=== PATIENT | male | born 1940 | race Caucasian/White ===

== ENCOUNTER 2024-04-29 15:41 | Inpatient (IN) ==
--- NOTE | 2024-04-29 16:47 | Emergency Department Note ---
Impression & Plan DVT (deep venous thrombosis) ED Provider Note NAME: MJ MCNEILL AGE: 84 SEX: Male INFORMANT: Patient ED PROVIDER(S): Jose Daniel Stallworth MD CHIEF COMPLAINT: Blood clot PLAN: Disposition: Admitted Outpatient prescription management: none Referral: None MEDICAL DECISION MAKING: Patient presented due to significant pain and swelling in the right leg and an outpatient ultrasound that was concerning for DVT. Patient had blood work obtained. He underwent CT imaging of the chest. Thankfully no pulmonary embolism was noted. I did obtain his ultrasound report and he has a significant DVT extending through most of the lower extremity. Patient's initial monitoring appeared like A-fib however on further monitoring and ECG it appears that he has frequent PACs with a sinus rhythm. In light of the extensive DVT I believe the patient would be best served by initiation of IV heparin. I did discuss the case with [facility] V[facility]. Patient was evaluated in the ER and admitted for further management. I did ask if he wanted hypercoagulability labs done before the heparinization and he did ask for this to be done. These were ordered. 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 Vital Signs: reviewed and remarkable for no significant abnormalities Additional History obtained from: none Chronic Medical/Social Conditions affecting care: Kidney stones, asthma Prior/ Outside/ External records reviewed: Outpatient ultrasound imaging reviewed. DVT noted from the common femoral through the popliteal. Differential Diagnosis: DVT, musculoskeletal, infection, joint effusion, trauma, lymphedema, idiopathic, PE,, as well as other pathologies. Diagnostics, independently interpreted by me: ECG: Twelve-lead ECG reveals a sinus rhythm with PACs at 82 bpm. Incomplete right bundle branch block. Cardiac Monitoring: Cardiac monitoring ordered by me: The patient was placed on continuous cardiac monitoring and observed. It revealed a sinus rhythm with frequent PACs at 87 bpm. Medical decision rules: none Imaging studies: I refer you to the EMR for further details. HPI: 84 year old Male arrives for evaluation of DVT in the right leg. This was found today at [facility] by US. Pt notes months of swelling in the RLE. The patient also notes the following associated symptoms, skin redness. The patient has been prescribed an abx for suspected cellulitis. Current pain is rated as 0/10. Pt denies LOC, headache, fevers, chills, diaphoresis, visual changes, neck pain, chest pain, breathing difficulties, nausea, vomiting, abdominal pain, back pain, melena, hematochezia, urinary symptoms, numbness, weakness, lymphadenopathy, or other complaints. . PAST MEDICAL HISTORY: See Below, asthma PAST SURGICAL HISTORY: See Below, gallbladder SOCIAL HISTORY: See Below, retired HOME MEDICATIONS: See Below ALLERGIES: See Below VITALS: See Below PHYSICAL EXAMINATION: GENERAL: Awake, alert, well-appearing, in no distress HENT: Normocephalic, atraumatic. Oropharynx unremarkable. EYES: Normal conjunctiva. Sclera non-icteric. NECK: Inspection normal. Non-tender. Supple. No nuchal rigidity. FROM. No masses. RESPIRATORY: Clear to auscultation. No wheezes. No rales. Normal respiratory effort. CARDIAC: Normal rate. Normal rhythm. No murmurs. No rubs. Extremities warm and well perfused. Pulses equal. No JVD. GI: Soft, non-distended. No tenderness to palpation. No rebound or guarding. No masses. RECTAL: Deferred. MUSCULOSKELETAL: Atraumatic. Chest examination reveals no tenderness. The back is symmetrical on inspection without obvious abnormality. There is no CVA tenderness to palpation. No joint edema. LOWER EXTREMITIES: RLE larger than LLE, non-tender. +1 edema. Erythematous discoloration. NEURO: Normal sensorium. No sensory or motor deficits noted. SKIN: No rash or jaundice noted. PROCEDURES: none CRITICAL CARE: none OBSERVATION NOTE: none Past Med/Surg History Problem List (Updated 04/29/24 @ 16:47 by Jose Daniel Stallworth MD) DVT (deep venous thrombosis) (Acute) Pleuritic chest pain (Acute) Right leg swelling (Acute) Bronchitis (Acute) Pleuritic chest pain (Acute) Bronchitis (Acute) Acute cholecystitis (Acute) Dyslipidemia (Chronic) History of renal calculi (Chronic) Asthma (Chronic) Social History Smoking Status: Never smoker Preferred Language: Estonian Feels Safe at Home: Yes Allergies Allergies Allergy/AdvReac Type Severity Reaction Status Date / Time No Known Allergies Allergy Unverified 08/24/09 14:15 Home Meds Home Medications Medication Instructions Recorded Confirmed Albuterol (Ventolin) 2 puff inhalation PRN sob,cough 02/26/14 ##18 MELOXICAM (MOBIC) 15 mg PO DAILY PRN Pain ##30 02/26/14 Simvastatin 20 mg PO HS ##30 02/26/14 Previous Rx's Medication Instructions Recorded CIPROFLOXACIN HCL (CIPRO) 1 tab PO BID #10 tabs 03/08/15 Results & Data (ED) Vital Signs Vital Signs - 24 hr 04/29/24 16:00 04/29/24 16:25 04/29/24 17:44 Temperature 36.7 C Temperature Source Temporal Artery Scan Pulse Rate 110 H 72 Pulse Rate [Right Finger] Respiratory Rate 18 18 Respiratory Effort / Characteristics Non-Labored Spontaneous Non-Labored Spontaneous Respiratory Depth Normal Respiratory Pattern Regular Blood Pressure 126/61 Blood Pressure [Left Arm] 131/94 Blood Pressure Mean 82 Blood Pressure Mean [Left Arm] 106 Blood Pressure Position [Left Arm] Lying Pulse Oximetry 99 95 Oxygen Delivery Method Room Air Room Air Sepsis Recent Fever Within 48 Hours No Sepsis New/Unexplained Change in Mental Status No Sepsis Action Taken by Nursing No Action Required 04/29/24 18:00 04/29/24 20:00 04/29/24 20:36 Temperature Temperature Source Pulse Rate 72 Pulse Rate [Right Finger] 71 73 Respiratory Rate 18 18 Respiratory Effort / Characteristics Non-Labored Spontaneous Non-Labored Spontaneous Respiratory Depth Respiratory Pattern Blood Pressure Blood Pressure [Left Arm] 143/75 H 143/75 H Blood Pressure Mean Blood Pressure Mean [Left Arm] 97 97 Blood Pressure Position [Left Arm] Lying Lying Pulse Oximetry 99 100 Oxygen Delivery Method Room Air Room Air Sepsis Recent Fever Within 48 Hours Sepsis New/Unexplained Change in Mental Status Sepsis Action Taken by Nursing 04/29/24 22:00 Temperature Temperature Source Pulse Rate Pulse Rate [Right Finger] 87 Respiratory Rate 16 Respiratory Effort / Characteristics Non-Labored Spontaneous Respiratory Depth Respiratory Pattern Blood Pressure Blood Pressure [Left Arm] 131/66 Blood Pressure Mean Blood Pressure Mean [Left Arm] 87 Blood Pressure Position [Left Arm] Lying Pulse Oximetry 98 Oxygen Delivery Method Room Air Sepsis Recent Fever Within 48 Hours Sepsis New/Unexplained Change in Mental Status Sepsis Action Taken by Nursing Laboratory Data 04/29/24 16:15 04/29/24 16:15 Lab Results 04/29/24 Range/Units 16:15 WBC 7.42 (4.8-10.8) K/ul RBC 5.18 (4.70-6.10) M/uL Hgb 15.8 (14.0-18.0) g/dl Hct 47.5 (42.0-52.0) % MCV 91.7 (80.0-100.0) fL MCH 30.5 (25.0-34.0) pg MCHC 33.3 (32.0-36.0) g/dL RDW Std Deviation 43.0 (36.4-46.3) fL RDW Coeff of Vicki 12.7 (11.5-14.5) % Plt Count 199 (130-400) K/uL MPV 12.1 (9.4-12.4) fL Immature Gran % (Auto) 0.3 % Neut % (Auto) 43.1 % Lymph % (Auto) 44.9 % [place] % (Auto) 10.0 % Eos % (Auto) 1.2 % Baso % (Auto) 0.5 % Neut # (Auto) 3.20 (1.40-6.50) K/uL Lymph # (Auto) 3.33 (1.20-3.40) K/uL [place] # (Auto) 0.74 H (0.11-0.59) K/uL Eos # (Auto) 0.09 (0.00-0.50) K/uL Baso # (Auto) 0.04 (0.00-0.20) K/uL Immature Gran # (Auto) 0.02 (0.01-0.20) K/uL PT 10.5 (9.0-12.0) Seconds INR 1.0 (0.9-1.1) APTT 24 (21-31) Seconds PTT Ratio 0.9 Sodium 141 (136-145) mmol/L Potassium 3.9 (3.5-5.1) mmol/L Chloride 106 (98-107) mmol/L Carbon Dioxide 28 (21-32) mmol/L Anion Gap 7 (3-11) BUN 11 (6-23) mg/dl Creatinine 0.98 (0.6-1.4) mg/dl Est Cr Clr Drug Dosing 61.9 ml/min eGFR 76.99 BUN/Creatinine Ratio 11.2 (10-20) Glucose 95 (70-99(Fasting)) mg/dl Calcium 9.3 (8.6-10.3) mg/dl Total Bilirubin 0.9 (0.2-1.0) mg/dl AST 20 (13-39) U/L ALT 12 (7-52) U/L Alkaline Phosphatase 84 (34-104) U/L Total Protein 7.6 (6.0-8.3) gm/dl Albumin 4.3 (3.4-5.0) gm/dl Globulin 3.3 (2.5-4.0) gm/dl Albumin/Globulin Ratio 1.3 (0.9-2) Administered Medications Heparin Sodium/Dextrose (Heparin Sodium/Dextrose) 25,000 units in 500 mls @ 19 mls/hr IV .Q24H LY; Protocol Stop: 05/29/24 20:14 Last Admin: 04/29/24 20:30 Dose: 950 units/hr, 19 mls/hr Documented By: NOLAN Co-signed By: TRAN Discontinued Medications Heparin Sodium (Porcine) (Heparin Sod (Porcine) 1000 Unit/Ml) 4,000 units IV NOW ONE Stop: 04/29/24 20:16 Last Admin: 04/29/24 20:28 Dose: 4,000 units Documented By: NOLAN Co-signed By: TRAN Ioversol (Optiray 320 125ml) 117 ml IV ONCE ONE Stop: 04/29/24 18:26 Last Admin: 04/29/24 18:29 Dose: 117 ml Documented By: GES Imaging Data Radiologist's Impression: Chest CTA 04/29/24 16:39 Exam(s): CTA CHEST IV Amt: 117 cc opti 320 EXAM: CT Angiography Chest With Intravenous Contrast CLINICAL HISTORY: Reason for exam: tachy, outpt us with DVT, eval for PE. TECHNIQUE: Axial computed tomographic angiography images of the chest with intravenous contrast. CTDI is 38 mGy and DLP is 888.27 mGy-cm. Automated exposure control was utilized for the study. A dose lowering technique was utilized adhering to the principles of ALARA. MIP reconstructed images were created and reviewed. COMPARISON: No relevant prior studies available. FINDINGS: Pulmonary arteries: No pulmonary embolism. Aorta: No acute findings. Normal caliber. No dissection. Lungs: Unremarkable. Pleural space: Unremarkable. Heart: Heart size is normal. Moderate coronary artery calcifications. Mediastinum: Small hiatal hernia. Bones/joints: No acute fracture. Soft tissues: Unremarkable. Lymph nodes: Unremarkable. IMPRESSION: No pulmonary embolism. No acute abnormality within the chest. Electronically signed by: David Mchugh MD 04/29/24 19:32 PM Discharge Plan Visit Data Chief Complaint: Leg Injury/Pain Stated Complaint: BLOODCLOT IN R LEG ED Provider: Jose Daniel Stallworth Discharge Problem: DVT (deep venous thrombosis) Forms Stand Alone Forms: [facility] [employer] Prescriptions Prescriptions: No Action Albuterol (Ventolin) inhaler 2 puff Inhalation PRN (Reason: sob,cough) Qty: 18 MELOXICAM (MOBIC) 15 MG tablet 15 mg PO DAILY PRN (Reason: Pain) Qty: 30 Simvastatin 20 MG tablet 20 mg PO HS Qty: 30 CIPROFLOXACIN HCL (CIPRO) 500 MG tablet 1 tab PO BID Qty: 10 0RF Referrals Referrals: PCP,NO [Physician] -
[2024-04-29 17:12] LABS: Basophils # (auto) 0.04 K/uL (0.00-0.20); Basophils % (auto) 0.5 %; Eosinophils # (auto) 0.09 K/uL (0.00-0.50); Eosinophils % (auto) 1.2 %; Hematocrit (blood only) 47.5 % (42.0-52.0); Hemoglobin 15.8 g/dl (14.0-18.0); Immature Granulocytes # (auto) 0.02 K/uL (0.01-0.20); Immature Granulocytes % (auto) 0.3 %; Lymphocytes # (auto) 3.33 K/uL (1.20-3.40); Lymphocytes % (auto) 44.9 %; Mean Corpuscular Hemoglobin 30.5 pg (25.0-34.0); Mean Corpuscular Hgb Conc 33.3 g/dL (32.0-36.0); Mean Corpuscular Volume 91.7 fL (80.0-100.0); Mean Platelet Volume 12.1 fL (9.4-12.4); Monocytes # (auto) 0.74 K/uL (0.11-0.59); Neutrophils % (auto) 43.1 %; Platelet Count 199 K/uL (130-400); RDW Coefficient of Variation 12.7 % (11.5-14.5); Red Blood Count 5.18 M/uL (4.70-6.10); White Blood Count 7.42 K/ul (4.8-10.8)
[2024-04-29 17:13] LABS: Albumin Globulin Ratio 1.3 (0.9-2); Albumin Level 4.3 gm/dl (3.4-5.0); BUN Creatinine Ratio 11.2 (10-20); Bilirubin,Total 0.9 mg/dl (0.2-1.0); Calcium 9.3 mg/dl (8.6-10.3); Creatinine Clr Calc Pharmacy 61.9 ml/min; Globulin 3.3 gm/dl (2.5-4.0); Potassium 3.9 mmol/L (3.5-5.1); Total Protein 7.6 gm/dl (6.0-8.3)
[2024-04-29 17:33] LABS: Partial Thromboplastin Ratio 0.9; Partial Thromboplastin Time 24 Seconds (21-31); Prothrombin Time 10.5 Seconds (9.0-12.0)
[2024-04-29] MEDS: OPTIRAY 320 125ml IV ONE (18:29)
--- NOTE | 2024-04-29 19:32 | CT Scan Report ---
Exam(s): CTA CHEST IV Amt: 117 cc opti 320 EXAM: CT Angiography Chest With Intravenous Contrast CLINICAL HISTORY: Reason for exam: tachy, outpt us with DVT, eval for PE. TECHNIQUE: Axial computed tomographic angiography images of the chest with intravenous contrast. CTDI is 38 mGy and DLP is 888.27 mGy-cm. Automated exposure control was utilized for the study. A dose lowering technique was utilized adhering to the principles of ALARA. MIP reconstructed images were created and reviewed. COMPARISON: No relevant prior studies available. FINDINGS: Pulmonary arteries: No pulmonary embolism. Aorta: No acute findings. Normal caliber. No dissection. Lungs: Unremarkable. Pleural space: Unremarkable. Heart: Heart size is normal. Moderate coronary artery calcifications. Mediastinum: Small hiatal hernia. Bones/joints: No acute fracture. Soft tissues: Unremarkable. Lymph nodes: Unremarkable. IMPRESSION: No pulmonary embolism. No acute abnormality within the chest. Electronically signed by: David Mchugh MD 04/29/24 19:32 PM
[2024-04-29] MEDS ORDERED: Heparin IV Adult Wt-Based Low-Dose w/ INITIAL Bolus Protocol IV STA (19:49)
[2024-04-29] MEDS ORDERED: HEPARIN SOD (PORCINE) 1000 UNIT/ML IV ONE (20:04)
[2024-04-29] MEDS: HEPARIN SOD (PORCINE) 1000 UNIT/ML IV ONE (20:28)
[2024-04-29] MEDS: HEPARIN SODIUM/DEXTROSE 25,000 UNITS/500 ML BAG IV SCH (20:30)
--- NOTE | 2024-04-29 23:16 | History & Physical Report ---
Date of Service April 29, 2024 Assessment & Plan (1) DVT (deep venous thrombosis): Plan: 84-year-old male with past medical history significant for hyperlipidemia, hypothyroidism, mild intermittent asthma, right bundle branch block, B12 deficiency, GERD, chronic back pain, restless leg syndrome, history of depression comes because of right lower extremity DVT and also CHF. Patient had routine cardiology visit yesterday. He was found to have swelling in the lower extremity right greater than left. Right lower extremity also somewhat warm and erythematous. He is having this edema for several weeks now. Seems he is noncompliant with salt. Cardiology ordered 80 mg Lasix 3 days and increase his maintenance dose from 20 to 40 mg and also ordered Dopplers and Keflex for possible cellulitis. Dopplers came back with right lower extremity DVT from the common femoral to the popliteal vein. Cardiology advised patient to come to the hospital and also advised for IV diuresis. Currently resting comfortably and hemodynamically stable. Denies any chest pain. Denies shortness of breath. Denies cough. No fevers. No headache. No runny nose or sore throat. No nausea. Normal bowel and bladder movements. Acute right lower extremity DVT CT chest no PE Placed on IV heparin Acute diastolic CHF Seems noncompliant with salt Placed on IV Lasix 40 mg daily Daily weights and I's and O's Follow echo Telemetry Cardiology consult for further recommendation Cellulitis of right lower extremity Was placed on Keflex yesterday by cardiology Will place on IV Rocephin while in the hospital Monitor response Hyperlipidemia On statin Hypothyroidism On Synthyroid Follow TSH Depression On sertraline DVT prophylaxis IV heparin Disposition Telemetry Full code. History of Present Illness Chief Complaint: Right lower extremity DVT and CHF Primary Care Provider: Adán Fink MD 84-year-old male with past medical history significant for hyperlipidemia, hypothyroidism, mild intermittent asthma, right bundle branch block, B12 deficiency, GERD, chronic back pain, restless leg syndrome, history of depression comes because of right lower extremity DVT and also CHF. Patient had routine cardiology visit yesterday. He was found to have swelling in the lower extremity right greater than left. Right lower extremity also somewhat warm and erythematous. He is having this edema for several weeks now. Seems he is noncompliant with salt. Cardiology ordered 80 mg Lasix 3 days and increase his maintenance dose from 20 to 40 mg and also ordered Dopplers and Keflex for possible cellulitis. Dopplers came back with right lower extremity DVT from the common femoral to the popliteal vein. Cardiology advised patient to come to the hospital and also advised for IV diuresis. Currently resting comfortably and hemodynamically stable. Denies any chest pain. Denies shortness of breath. Denies cough. No fevers. No headache. No runny nose or sore throat. No nausea. Normal bowel and bladder movements. Past medical history. As mentioned above Past surgical history. Cystoscopy. Cystoscopy with insertion of stent. Cystourethroscopy with lithotripsy. Laparoscopic assisted tongue. Left cataracts. Social history. . No smoking. No alcohol. No drug use Family history. Sister has lung cancer. Brother has MD. Sister has MD. Mother had MD. Allergies Allergy/AdvReac Type Severity Reaction Status Date / Time No Known Allergies Allergy Unverified 08/24/09 14:15 Home Medications Medication Instructions Recorded Confirmed Type cephalexin 500 mg capsule 500 mg PO TID 04/29/24 04/29/24 History furosemide 40 mg tablet 40 mg PO DAILY 04/29/24 04/29/24 History levothyroxine 50 mcg tablet 50 mcg PO DAILY 04/29/24 04/29/24 History potassium chloride 20 mEq 20 meq PO DAILY 04/29/24 04/29/24 History tablet,extended release(part/cryst) sertraline 50 mg tablet 50 mg PO DAILY 04/29/24 04/29/24 History simvastatin 20 mg tablet 20 mg PO DAILY 04/29/24 04/29/24 History Past Med/Surg History Problem List (Updated 04/29/24 @ 16:47 by Jose Daniel Stallworth MD) DVT (deep venous thrombosis) (Acute) Pleuritic chest pain (Acute) Right leg swelling (Acute) Bronchitis (Acute) Pleuritic chest pain (Acute) Bronchitis (Acute) Acute cholecystitis (Acute) Dyslipidemia (Chronic) History of renal calculi (Chronic) Asthma (Chronic) Social History Smoking Status: Never smoker Hx Alcohol Use: No Hx Substance Use: No Preferred Language: Moroccan Communication Ability: Effective Delivery Coordinator Required: No Beliefs That Will Affect Care: None Current Living Situation: Alone Feels Safe at Home: Yes Safety Concerns: Feels Safe At This Time Assistive Devices: Brace/Splint/Immobilizer and Glasses Review of Systems Review of Systems: All systems reviewed & are unremarkable except as noted in HPI & below Physical Exam Physical Exam: General- Not in distress Head- atraumatic Eyes- PERRL. ENT- oropharynx clear Neck- supple, no JVD. Lungs- clear to auscultation no wheezing or crackles Heart- regular rhythm; no murmur, no gallop. Abdomen- normal bowel sounds, soft, nontender, no distension Extremities- b/l lower extremity edema right leg erythematous Neuro- alert, oriented ; PERRL, no facial palsy; no dysarthria; moves etxremities Results & Data Results & Data Vital Signs (Past 12 Hours) Vital Signs Temp Pulse Pulse Resp BP BP Pulse Ox 04/29/24 22:00 87 16 131/66 98 04/29/24 20:36 72 04/29/24 20:00 73 18 143/75 H 100 04/29/24 18:00 71 18 143/75 H 99 04/29/24 17:44 72 04/29/24 16:25 18 131/94 95 04/29/24 16:00 36.7 C 110 H 18 126/61 99 O2 Del Method 04/29/24 22:00 Room Air 04/29/24 20:36 04/29/24 20:00 Room Air 04/29/24 18:00 Room Air 04/29/24 17:44 04/29/24 16:25 Room Air 04/29/24 16:00 Room Air Diagnostic Findings Laboratory Results WBC 7.42 K/ul (4.8-10.8) 04/29/24 16:15 RBC 5.18 M/uL (4.70-6.10) 04/29/24 16:15 Hgb 15.8 g/dl (14.0-18.0) 04/29/24 16:15 Hct 47.5 % (42.0-52.0) 04/29/24 16:15 MCV 91.7 fL (80.0-100.0) 04/29/24 16:15 MCH 30.5 pg (25.0-34.0) 04/29/24 16:15 MCHC 33.3 g/dL (32.0-36.0) 04/29/24 16:15 RDW Std Deviation 43.0 fL (36.4-46.3) 04/29/24 16:15 RDW Coeff of Vicki 12.7 % (11.5-14.5) 04/29/24 16:15 Plt Count 199 K/uL (130-400) 04/29/24 16:15 MPV 12.1 fL (9.4-12.4) 04/29/24 16:15 Immature Gran % (Auto) 0.3 % 04/29/24 16:15 Neut % (Auto) 43.1 % 04/29/24 16:15 Lymph % (Auto) 44.9 % 04/29/24 16:15 [place] % (Auto) 10.0 % 04/29/24 16:15 Eos % (Auto) 1.2 % 04/29/24 16:15 Baso % (Auto) 0.5 % 04/29/24 16:15 Neut # (Auto) 3.20 K/uL (1.40-6.50) 04/29/24 16:15 Lymph # (Auto) 3.33 K/uL (1.20-3.40) 04/29/24 16:15 [place] # (Auto) 0.74 K/uL (0.11-0.59) H 04/29/24 16:15 Eos # (Auto) 0.09 K/uL (0.00-0.50) 04/29/24 16:15 Baso # (Auto) 0.04 K/uL (0.00-0.20) 04/29/24 16:15 Immature Gran # (Auto) 0.02 K/uL (0.01-0.20) 04/29/24 16:15 PT 10.5 Seconds (9.0-12.0) 04/29/24 16:15 INR 1.0 (0.9-1.1) 04/29/24 16:15 APTT 24 Seconds (21-31) 04/29/24 16:15 PTT Ratio 0.9 04/29/24 16:15 Sodium 141 mmol/L (136-145) 04/29/24 16:15 Potassium 3.9 mmol/L (3.5-5.1) 04/29/24 16:15 Chloride 106 mmol/L (98-107) 04/29/24 16:15 Carbon Dioxide 28 mmol/L (21-32) 04/29/24 16:15 Anion Gap 7 (3-11) 04/29/24 16:15 BUN 11 mg/dl (6-23) 04/29/24 16:15 Creatinine 0.98 mg/dl (0.6-1.4) 04/29/24 16:15 Est Cr Clr Drug Dosing 61.9 ml/min 04/29/24 16:15 eGFR 76.99 04/29/24 16:15 BUN/Creatinine Ratio 11.2 (10-20) 04/29/24 16:15 Glucose 95 mg/dl (70-99(Fasting)) 04/29/24 16:15 Calcium 9.3 mg/dl (8.6-10.3) 04/29/24 16:15 Total Bilirubin 0.9 mg/dl (0.2-1.0) 04/29/24 16:15 AST 20 U/L (13-39) 04/29/24 16:15 ALT 12 U/L (7-52) 04/29/24 16:15 Alkaline Phosphatase 84 U/L (34-104) 04/29/24 16:15 Total Protein 7.6 gm/dl (6.0-8.3) 04/29/24 16:15 Albumin 4.3 gm/dl (3.4-5.0) 04/29/24 16:15 Globulin 3.3 gm/dl (2.5-4.0) 04/29/24 16:15 Albumin/Globulin Ratio 1.3 (0.9-2) 04/29/24 16:15 Impressions Chest CTA 04/29/24 16:39 Exam(s): CTA CHEST IV Amt: 117 cc opti 320 EXAM: CT Angiography Chest With Intravenous Contrast CLINICAL HISTORY: Reason for exam: tachy, outpt us with DVT, eval for PE. TECHNIQUE: Axial computed tomographic angiography images of the chest with intravenous contrast. CTDI is 38 mGy and DLP is 888.27 mGy-cm. Automated exposure control was utilized for the study. A dose lowering technique was utilized adhering to the principles of ALARA. MIP reconstructed images were created and reviewed. COMPARISON: No relevant prior studies available. FINDINGS: Pulmonary arteries: No pulmonary embolism. Aorta: No acute findings. Normal caliber. No dissection. Lungs: Unremarkable. Pleural space: Unremarkable. Heart: Heart size is normal. Moderate coronary artery calcifications. Mediastinum: Small hiatal hernia. Bones/joints: No acute fracture. Soft tissues: Unremarkable. Lymph nodes: Unremarkable. IMPRESSION: No pulmonary embolism. No acute abnormality within the chest. Electronically signed by: David Mchugh MD 04/29/24 19:32 PM ECG Additional Comments: ECG. Atrial fibrillation? with rate of 82. Incomplete right bundle branch block. Possible right ventricular trophy. Code Status & VTE Plan VTE Prophylaxis Plan VTE Prophylaxis will be ordered: Yes
[2024-04-30] MEDS ORDERED: ACETAMINOPHEN 325 MG TAB PO PRN (00:59)
[2024-04-30] MEDS ORDERED: POLYETHYLENE (MIRALAX) 17 GM PACK PO PRN (00:59)
[2024-04-30] MEDS ORDERED: NITROGLYCERIN SL 0.4 MG/TAB TAB SL PRN (00:59)
[2024-04-30 03:04] LABS: ANTI-Xa, UFH(UnfractionatedHep 0.45 IU/ml (0.3-0.7)
[2024-04-30] MEDS: LEVOTHYROXINE SODIUM 50 MCG TABLET PO SCH (05:58)
--- OUTSIDE RECORDS SUMMARY | 2024-04-30 06:09 | External Medical Summary ---
Author Name Unknown Address Unknown Organization [id number] [address] [place] [id number] Laboratory Report Ordering Provider Test Date Status ALEN JONES 04/28/2024 09:50:45 Final Observation Date Value Abnormality Reference (Units ) Status BUN 04/28/2024 09:50:45 11 6-20 (mg/dL) Final Creatinine 04/28/2024 09:50:45 1.0 0.6-1.2 (mg/dL) Final Glomerular filtration rate/1.73 sq M.predicted [Volume Rate/Area] in Serum, Plasma or Blood by Creatinine-based formula (CKD-EPI) 04/28/2024 09:50:45 79 >=60 (mL/min) Final eGFR is calculated based on the CKD-EPI 2020 equation. Sodium 04/28/2024 09:50:45 143 135-146 (m mol/L) Final Potassium 04/28/2024 09:50:45 4.3 3.5-5.1 (m mol/L) Final Cl 04/28/2024 09:50:45 104 98-107 (mm ol/L) Final CO2 04/28/2024 09:50:45 26 22-32 (mmo l/L) Final Anion gap 04/28/2024 09:50:45 13 7-15 (mmol /L) Final Glucose 04/28/2024 09:50:45 102 70-120 (mg /dL) Final Calcium 04/28/2024 09:50:45 9.3 8.4-10.2 ( mg/dL) Final Performing Location [facility] [address] [place] [id number]
--- OUTSIDE RECORDS SUMMARY | 2024-04-30 06:09 | External Medical Summary | Summary of Care ---
Author Name Unknown Organization [facility] Address [address] [place] [address] Phone [phone] Care Team Providers Care Blocker And Polisher Gold Wheel Name Role Phone Adán Fink MD Primary Care Provider + Reason for Referral * Precert (Diagnostic Medical) (Within 10 days (routine)) - Authorized Specialty Diagnoses / Procedures Referred By Dianne t Referred To Contact Cardiac Studies Diagnoses Leg swelling Acute diastolic heart failure (HCC) Procedures ECHO, COMPLETE (2D), TRANS-THORACIC Ludmila Jha CRNP [address] [facility] [place] [address] Referral ID Status Reason Start Date Expiration Date V isits Requested Visits Authorized [id number] Authorized Precert 10/14/2024 999 999 Reason for Visit * Reason Comments Follow Up Encounter Details Date Type Department Care Team (Late st Contact Info) Description 04/28/2024 9:00 AM EDT Office Visit Cardiology, [facility] [address] [place] [address] Ludmila Jha CRNP [address] [place] [address] Acute diastolic heart failure (HCC)*; Cellulitis of right lower extremity; Leg swelling; Pain of right lower leg Allergies No known active allergiesdocumented as of this encounter (statuses as of 04/29/2024) Medications Medication Sig Dispensed Refills Start Date End Date Status Multiple Vitamins-Minerals (ONE DAILY MENS 50+ MULTIVIT) TABS Active Levothyroxine Sodium 50 MCG Oral Tablet (Levoxyl)Indication s:Acquired hypothyroidism Take 1 Tablet by mouth daily first thing in the morning. 100 Tablet 3 4 Active Sertraline HCl 50 MG Oral Tablet (Zoloft) Take 1 Tablet by mouth in the morning. 100 Tablet 3 4 Active Simvastatin 20 MG Oral Tablet (Zocor)Indications: Dyslipidemia, goal LDL below 100 Take 1 Tablet by mouth every evening. 100 Tablet 3 4 Active Potassium Chloride Amy ER 20 MEQ Oral Tablet Extended ReleaseIndications: Bilateral leg edema Take 1 Tablet by mouth in the morning. 30 Tablet 4 Active Cephalexin 500 MG Oral CapsuleIndications: Leg swelling,Cellulitis of right lower extremity,Pain of right lower leg Take 1 Capsule by mouth in the morning and 1 Capsule at noon and 1 Capsule before bedtime. 21 Capsule 4 Active Furosemide 40 MG Oral Tablet (Lasix)Indications: Leg swelling,Acute diastolic heart failure (HCC) Take 1 Tablet by mouth in the morning. 90 Tablet 3 4 Active Furosemide 20 MG Oral Tablet (Lasix)Indications: Bilateral leg edema Take 1 Tablet by mouth in the morning. 30 Tablet 4 04/28/20 24 Discontinued(Med ication/Dose Changed) Cephalexin 500 MG Oral CapsuleIndications: Leg swelling,Cellulitis of right lower extremity,Pain of right lower leg Take 1 Capsule by mouth in the morning and 1 Capsule at noon and 1 Capsule before bedtime. 21 Capsule 4 04/28/20 24 Discontinued Furosemide 40 MG Oral Tablet (Lasix)Indications: Leg swelling,Acute diastolic heart failure (HCC) Take 1 Tablet by mouth in the morning. 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 10/03 start IM Routine medical exam 09/08/2009 Overview: Needs yearly CBC monitor lymphocytes. Declines shingrix Dyslipidemia, goal LDL below 100 Mild intermittent asthma without complication Overview: Cold induced documented as of this encounter (statuses as of 04/29/2024) Resolved Problems Problem Noted Date Diagnosed Date Resolved Date History of kidney stones 05/15/2019 Overview: Historical. Pain of both sacroiliac joints 02/28/2017 04/12/2017 Malaise and fatigue 04/27/2015 07/21/19 16 Insomnia 04/27/2015 07/21/2015 Gallbladder disease 04/27/2015 07/21/19 16 Hypothyroidism 04/27/2015 09/15/2020 Lumbar paraspinal muscle spasm 03/14/2014 04/27/2015 Low back pain 03/12/2014 04/27/2015 Cough 03/05/2014 03/05/2014 Cough 03/05/2014 04/27/2015 Chest pain 03/05/2014 07/21/2015 Asthma, mild persistent 08/05/201307/17 Arthralgia 08/05/2013 03/05/2014 Pain of left thumb 08/05/2013 4 Impacted cerumen 11/29/2011 08/05/2013 Acute bronchitis, complicated 10/30/2011 08/05/2013 Bacterial pneumonia 10/13/2011 03/05/20 14 Acute sinusitis 03/03/2011 08/05/2013 Dyspnea 09/08/2009 03/05/2014 Plantar fasciitis 09/08/2009 02/28/2017 Screening for cardiovascular condition 09/08/2009 08/05/2013 Screening for prostate cancer 09/08/2009 03/05/2014 Calculus of kidney 07/16/2008 0 Asthma, cold induced 014 documented as of this encounter (statuses as of 04/29/2024) Immunizations Name Administration Dates Next Due COVID-19 mRNA, LNP-s, No Pre serve, 2-Dose Series (Diasome) 04/29/2021,09/14/2020 Covid-19, Mrna, Lnp-s, Pf, B ivalent, 30 Mcg, IM, 12 yrs and above (Pfizer) 06/12/2022 Pneumococcal Conjugate Vacc, 13 Valent (Prevnar) 05/23/2017 Pneumococcal Polysaccharide PPV23 (Pneumovax) 08/12/2018 RSV Vac., Bivalent, Perfusio n F, Pf,0.5 Ml (Abrysvo) 10/15/2023 Seasonal Influenza Vac., MDV , IM, 0.5 mL (Fluzone) 03/17/2015,04/06/2014,04/04/2013,04/09,04/27/2011,03/16/2009 Seasonal Influenza, High Dos e, Trivalent, PF, IM (Fluzone HD) 04/16/2024 Seasonal Influenza, PF, 6 M & above, IM , (FluLaval or Fluzone) 04/05/2020,04/01/2018,04/12/2017 Seasonal Influenza, Quadriva lent Hd (Fluzone Hd) 03/27/2023,06/12/2022,03/31/2021 Seasonal Influenza, Quadriva lent, No Preserve, IM 04/05/2016 Seasonal Influenza, Trivalen t, Adjuvanted, 65+ YRS, PF, (Fluad) 04/16/2019 TDAP (age 10 and older)(Boostrix) 06/13/2017 documented as of this encounter Social History Tobacco Use Types Packs/Day Years Used Date Smoking Tobacco: Never Smokeless Tobacco: Never Tobacco Cessation:Counseling Given: Not Answered Alcohol Use Standard Drinks/Week Comments No 0 (1 standard drink = 0.6 oz pur e alcohol) none PHQ-2 Answer Date Recorded PHQ Adult Total Score 0 10/15/2023 Hunger Vital Sign Answer Date Recorded Within the past 12 months, y ou worried that your food would run out before you got the money to buy more. Never true 10/15/19 24 Within the past 12 months, t he food you bought just didn't last and you didn't have money to get more. Never true 10/15/2023 Childcare Answer Date Recorded Do you feel overwhelmed with taking care of a child, family member or friend? No 10/15/2023 Does your family need help f inding childcare? (Household - for ages 0-17 years) Not on file 10/15/2023 Clothing Answer Date Recorded Have you been unable to get clothing when it was really needed? No 10/15/2023 Is your family able to get c lothes or diapers when needed? (Household - for ages 0-17 years) Not on file 10/15/2023 Personal Safety Answer Date Recorded Do you feel unsafe or have concerns for your saf ety? No 10/15/2023 Do you have concerns for you r family's safety? (Household - for ages 0-17 years) Not on file 10/15/2023 Utilities Answer Date Recorded Do you have trouble paying y our heating, water, or electric bill? No 10/15/2023 Is your family able to pay t he heat, water, or electric bill? (Household - for ages 0-17 years) Not on file 10/15/2023 Does your family have access to good internet? (Household - for ages 0-17 years) Not on file 10/15/2023 Employment Status Answer Date Recorded Are you unemployed or without regular income? No 10/15/2023 Does the household have a re gular source of income? (Household - for ages 0-17 years) Not on file 10/15/2023 Social Connections Answer Date Recorded How often do you feel lonely or isolated from th ose around you? Never 10/15/2023 Financial Resource Strain Answer Date R ecorded Do you have any trouble payi ng for your medications, or do you think you might in the future? No 10/15/2023 Does your family have troubl e paying for medicine? (Household - for ages 0-17 years) Not on file 10/15/2023 Transportation Needs Answer Date Record ed READ ONLY Do you have troubl e getting a ride to medical visits or work? Never True 10/15/2023 Does your family have a hard time getting a ride to doctors visits? (Household - for ages 0-17 years) Not on file 10/15/2023 Has lack of transportation k ept you from medical appointments, meetings, work, or from getting things needed for daily living? Check all that apply. (Adult - for ages 18 years and over) Not on file 10/15/2023 Do you (or your family) have trouble finding or paying for a ride (transportation)? (Household - for ages 0-17 years) Not on file 10/15/2023 Housing Stability Answer Date Recorded Do you currently live in a s helter or have no steady place to sleep at night? No 10/15/2023 READ ONLY Do you think you a re at risk of becoming homeless? No 10/15/2023 Does your family worry about paying for your home or becoming homeless? (Household - for ages 0-17 years) Not on file 0 10/15/2023 Are you homeless or worried that you might be in the future? (Adult - for ages 18 years and over) Not on file Are you (or your family) jesus eless or worried that you might be in the future? (Household - for ages 0-17 years) Not on file Food Insecurity Answer Date Recorded Do you need food for this week? No 10/15/2023 Are you able to get enough f ood for your family? (Household - for ages 0-17 years) Not on file 10/15/2023 Does your family need food t his week? (Household - for ages 0-17 years) Not on file 10/15/2023 Do you always have enough fo od for your family? (Household - for ages 0-17 years) Not on file 10/15/2023 Sex and Gender Information Value Date Recorded Sex Assigned at Male 08/11/2022 12:50 PM EST Gender Identity Male 08/11/2022 12:50 PM EST Sexual Orientation Straight 08/11/2022 12 :50 PM EST Job Start Date Occupation Industry Not on file Not on file Not on file documented as of this encounter Last Filed Vital Signs Vital Sign Reading Time Taken Comments Blood Pressure 112/74 04/28/2024 9:00 AM EDT Pulse 80 04/28/2024 9:00 AM EDT Temperature - - Respiratory Rate 12 04/28/2024 9:00 AM EDT Oxygen Saturation - - Inhaled Oxygen Concentration - - Weight 91.4 kg (201 lb 8 oz) 04/28/2024 9:00 AM EDT Height - - Body Mass Index 28.21 04/16/2024 10:59 AM EDT documented in this encounter Patient Instructions * Patient Instructions* Ludmila Jha CRNP - 04/28/2024 9:32 AM EDT Increase your Furosemide (Lasix) to 80mg daily x3 days, and then reduce to 40mg daily starting Labs today and then again in one week (next Sunday or ) Start Antibiotic today Schedule for ultrasound of your right lower leg Schedule for Echocardiogram in October 2024. 6. Follow up with me in one month 7. Start using your scale, check your weight each morning after your first get up to urinate. Keep a journal. Call us with a weight gain of 5lbs or more in one week. documented in this encounter Progress Notes * Ludmila Jha CRNP - 04/28/2024 9:00 AM EDT 04/27/2024 Cardiology Follow Up Primary Director Underwriter Sales: Dr. Emerson Cardiac Problems: Venous insufficiency Right BBB (chronic, cited back to 2009) Pericardial effusion HPI: Kleber Darden is a 84 year old male presents for routine cardiology follow up. Last seen in the office by the undersigned 10/18/23 doing well from a cardiac perspective Presents today with family complaining of leg swelling, right worse than left. Right leg also is red and warm to the touch. The redness and increased warmth has been for a few weeks. Patient's son has also accompanied patient to today's appointment. He states the patient's leg swelling has been ongoing and progressively worse over the past few months other did note some improvement following use of furosemide after [place]. Patient was advised at that time to start obtaining daily "dry" weights, but has not. He was also advised to start monitoring her salt intake and reducing. He has not. When asked to describe what he eats in a typical day. He reports that he does not each breakfast, but does like to have potato chips. He reports Grilled cheese and Amharic fries with salt for lunch, and Spaghetti-os for dinner. BP controlled. Reports compliance on medications. Discussed consideration for presenting to the ER given the concern of his right leg. Patient is refusing. REVIEW OF SYSTEMS: See HPI for pertinent positives. All others negative other than those noted in the HPI. CONSTITUTIONAL: No change in weight, No weakness, No fatigue and No fevers, No sweats or chills. PULMONARY: No cough, sputum, or hemoptysis, No wheezing, No shortness or breath and No recent change in breathing. CARDIOVASCULAR: No chest pain, No dyspnea on exertion, No edema, No palpitations and No syncope. GASTROINTESTINAL: No abdominal pain, No change in bowel habits, No significant heartburn, No nausea, No vomiting, No diarrhea, No constipation, No blood in stools or black tarry stools. No dysphagia. HEMATOLOGIC: No abnormal bleeding and No bruising. NEUROLOGICAL: Normal balance, No headaches and No weakness. Review of patient's allergies indicates: No Known Allergies Current Outpatient Medications Medication Sig Dispense Refill Multiple Vitamins-Minerals (ONE DAILY MENS 50+ MULTIVIT) TABS Levothyroxine Sodium 50 MCG Oral Tablet (Levoxyl) Take 1 Tablet by mouth daily first thing in the morning. 100 Tablet 3 Sertraline HCl 50 MG Oral Tablet (Zoloft) Take 1 Tablet by mouth in the morning. 100 Tablet 3 Simvastatin 20 MG Oral Tablet (Zocor) Take 1 Tablet by mouth every evening. 100 Tablet 3 Potassium Chloride Amy ER 20 MEQ Oral Tablet Extended Release Take 1 Tablet by mouth in the morning. 30 Tablet 0 Cephalexin 500 MG Oral Capsule Take 1 Capsule by mouth in the morning and 1 Capsule at noon and 1 Capsule before bedtime. 21 Capsule 0 Furosemide 40 MG Oral Tablet (Lasix) Take 1 Tablet by mouth in the morning. 90 Tablet 3 Current Facility-Administered Medications Medication Dose Route Frequency Provider Last Rate Last Admin Vitamin B-12 (Cyanocobalamin) inj 1,000 mcg 1,000 mcg Intramuscular Q4 Weeks Past Medical History: Diagnosis Date Asthma, cold induced B12 deficiency 09/01/2016 Calculus of kidney 2008 Chronic left-sided low back pain with left-sided sciatica 02/28/2017 Dyslipidemia, goal LDL below 100 Hypothyroidism 04/27/2015 Hypothyroidism due to acquired atrophy of thyroid 09/11/2019 Pain of both sacroiliac joints 02/28/2017 RLS (restless legs syndrome) 03/11/2020 Family History Problem Relation Name Age of Onset Heart Disorder Mother [place] age 68 all siblings , no other CA. 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 Social Determinants of Health Financial Resource Strain: Low Risk (10/15/2023) Financial Resource Strain Do you have any trouble paying for your medications, or do you think you might in the future? (Adult - for ages 18 years and over): No Food Insecurity: No Food Insecurity (10/15/2023) Food Insecurity Do you need food for this week? (Adult - for ages 18 years and over): No Transportation Needs: No Transportation Needs (10/15/2023) Transportation Needs Do you have trouble getting a ride to medical visits or work? (Adult - for ages 18 years and over):Never True Social Connections: Socially Integrated (10/15/2023) Social Connections How often do you feel lonely or isolated from those around you? (Adult - for ages 18 years and over): Never Housing Stability: Low Risk (10/15/2023) Housing Stability Do you currently live in a intermediate or have no steady place to sleep at night? (Adult - for ages 18 years and over): No Do you think you are at risk of becoming homeless? (Adult - for ages 18 years and over): No OBJECTIVE/PHYSICAL EXAMINATION: BP 112/74 (BP Site: Left Arm, BP Position: Sitting, BP Cuff Size: Regular) | Pulse 80 | Resp 12 | Wt 91.4 kg (201 lb 8 oz) | BMI 28.21 kg/m | BSA 2.14 m General: No acute distress. A+Ox3. HEENT: Normocephalic. Atraumatic. PERRL. EOMI. Conjunctiva and sclera clear. NECK: No carotid bruits. No JVD. Carotid upstrokes are brisk. Heart: RRR. S1 and S2 noted. No murmur. No rubs or gallops. PMI non displaced. Lungs: Clear to auscultation. No wheezes.No rhonchi. No rales. Abdomen: Normal bowel sounds. Soft. Nontender. No masses or organomegaly. No abdominal bruits. Extremities: No edema. No clubbing or cyanosis. Pulses: radial=2/4, posterior tibial=2/4, dorsalis pedis = 2/4. NEURO: No focal deficits. PSYCH: Appropriate affect and insight. DATA Labs & Imaging Reviewed Below: Echocardiogram 10/11/23 Interpretation Summary The examination is adequate to evaluate the referral indication. The LV wallthickness is normal. The left ventricular wall motion is normal. The qualitative LV ejection fraction is 60-64% (normal). The left ventricular diastolic function is mildly abnormal (grade I). Mild tricuspid regurgitation is present. There is no evidence of pulmonary hypertension. There is a small circumferential pericardial effusion with thickening and organization. Effusion is of non hemodynamicsignificance, no tamponade. Compared to the images obtained at the time of the previous study dated108/06/2022, mild tricuspid regurgitation is now noted. The pericardial effusion is unchanged. Echocardiogram June 06, 2023 The left ventricular cavity size is normal. The LV wall thickness is mildly increased (concentric). The left ventricular wall motion is normal. The qualitative LV ejection fraction is 60-64% (normal). The left ventricular diastolic function is mildly abnormal (grade I). There is no significant valvular disease There is no evidence of pulmonary hypertension. The inferior vena cava is normal sized. There is a small circumferential pericardial effusion with thickening and organization. Effusion isof non hemodynamic significance, no tamponade EKG June 12, 2023: Normal sinus rhythm at 65 beats per minute with right bundle-branch block ASSESSMENT/PLAN: 84 year old year old male 1. Acute diastolic heart failure (HCC) -patient with known diastolic dysfunction, noncompliant with daily weights or diet modification as previously discussed. Eats a diet high in sodium but reports medication compliance -patient with modest volume overload on exam as well as increasing concerns over his right lower extremity due to erythema, discomfort and increased warmth to touch -sent for labs today -patient currently taking 20 mg of Lasix daily, we will initiate 8 DTP starting today of 80 mg of Lasix daily x3 days. On day 4 patient should reduced to 40 mg daily and have repeat labs in 1 week toassess renal function and electrolyte -arrange for echocardiogram to assess overall structure and function - BASIC METABOLIC PANEL; Future - ECHO, COMPLETE (2D), TRANS-THORACIC; Future - BASIC METABOLIC PANEL; Future - Furosemide 40 MG Oral Tablet (Lasix); Take 1 Tablet by mouth in the morning. Dispense: 90 Tablet;Refill: 3 2. Cellulitis of right lower extremity 3. Leg swelling 4. Pain of right lower leg -patient's leg swelling is multifactorial -in part due to dietary noncompliance, patient strongly encouraged to start performing daily weights and keep a log as well as encouraged to start reading nutrition labels and maintain a less than 2000 mg sodium intake daily and fluid intake between 60 and 80 oz daily -sent for labs today to monitor renal function, electrolytes as well as check D-dimer -CBC to assess for infection given concern for likely cellulitis -vascular duplex ordered to exclude DVT -CHF teaching packet provided to patient and son -patient has had performed DTP of furosemide as noted above and then we will increase overall maintenance dose to 40 mg daily. Labs today and then repeat labs in 1 week - VASC DUPLEX VENOUS LE UNILAT; Future - CBC; Future - D-DIMER; Future - Cephalexin 500 MG Oral Capsule; Take 1 Capsule by mouth in the morning and 1 Capsule at noon and 1 Capsule before bedtime. Dispense: 21 Capsule; Refill: 0 - EKG COMPLETE (TRACING AND INTERP) - BASIC METABOLIC PANEL; Future - D-DIMER; Future - ECHO, COMPLETE (2D), TRANS-THORACIC; Future - BASIC METABOLIC PANEL; Future - Cephalexin 500 MG Oral Capsule; Take 1 Capsule by mouth in the morning and 1 Capsule at noon and 1 Capsule before bedtime. Dispense: 21 Capsule; Refill: 0 - Furosemide 40 MG Oral Tablet (Lasix); Take 1 Tablet by mouth in the morning. Dispense: 90 Tablet;Refill: 3 -thorough instructions provided on patient print out DISPOSITION: Follow up 4 weeks or if symptoms worsen/fail to improve. All questions were answered to the patients satisfaction. Patient advised to report to ED with any and all emergencies. The patient agrees to the above plan and will call with additional questions or concerns. [facility], [address] [address] I spent a total of 40 minutes on the date of service in preparation, delivery, and documentation ofthe care provided to Kleber Darden excluding any time spent in the performance of separately billed services. This chart was completed in part utilizing [employer] Speech Voice Recognition Software. Grammatical errors, random word insertions, pronoun errors, and incomplete sentences are an occasional consequence of this system due to software limitations, ambient noise, and hardware issues. Any formal questions or concerns about the content, text, or information contained within the body of this dictation should be directly addressed to the provider for clarification. documented in this encounter Procedure Notes * Chato Broussard DO - 04/28/2024 9:12 AM EDTAssociated Order(s): EKG COMPLETE (TRACING AND INTERP) REASON FOR STUDY: irregular heart beat;irregular heart beat CONCLUSIONS: Sinus rhythm with frequent and consecutive premature atrial complexes. Right bundle branch block Left posterior fascicular block Bifascicular block Abnormal ECG When compared with ECG of 12-Jun-2023 09:02, Premature atrial complexes, short runs of PAT now present. Left posterior fascicular block is now Present Ventricular Rate: 82 Atrial Rate: 82 VA Interval: 136 QRS Duration: 116 QT/QTc: 402/469 ms P-R-T [place]: 57 : 148 : 22 degrees documented in this encounter Nursing Notes * Evelyn Akhtar CMA - 04/28/2024 8:55 AM EDT Examination Room: 4 Name: Kleber Darden Date of : (1940). Reason for Visit: 8M f/u Interim Hospitalization(s): none Problems/Concerns: Swelling, R>L. States swelling goes down overnight but begins again once he gets up in the morning. R leg is red, warm, skin is very taut. Chest Pain/SOB: denies [facility] Discussed: No [facility] is a way you can talk to your provider online through e-mail. Would you like to sign up? I can activate it for you? ALREADY ACTIVE Patient was instructed to not get up on the exam table until directed and assisted by their provider; patient is to remain seated in the chair/ wheelchair/ exam table for fall prevention and safety reasons. Patient is aware to have assistance to step down off exam table with personnel. Patient voiced full comprehension of instructions. documented in this encounter Plan of Treatment Upcoming Encounters Date Type Department Care Team (Late st Contact Info) Description 04/29/2024 2:45 PM EDT Imaging Radiology[address] [address] 05/07/2024 10:30 AM EDT Office Visit Orthopa[facility]ics [facility] 132 [facility] [place] [address] Lewis Almaraz DO 132 [facility] [place] [address] 05/07/2024 11:00 AM EDT Nurse Only Ancillary [facility] 132 [facility] [place] [address] Brayan Nurse Josue Webber 132 [facility] [place] [address] 10/14/2024 9:30 AM EDT Cardiac Studies Cardiac Studies, [facility] [address] [place] [address] 10/16/2024 10:00 AM EDT Office Visit Family Practice [facility] [address] [place] [address] Adán Fink MD [address] [place] [address] Scheduled Orders Name Type Priority Associated Diagnoses Orde r Schedule VASC DUPLEX VENOUS LE UNILAT Medical Imaging Routine Leg swelling Cellulitis of right lower extremity Pain of right lower leg Expected: 04/28/2024, Expires: 05/29/2025 ECHO, COMPLETE (2D), TRANS-THORACIC Echocardiology Routine Leg swelling Acute diastolic heart failure (HCC) Expected: 10/14/2024 (Approximate), Expires: 05/28/2026 BASIC METABOLIC PANEL Lab Routine Leg swelling Acute diastolic heart failure (HCC) Expected: 05/07/2024, Expires: 04/28/2025 Health Maintenance Due Date Last Done Comments Zoster Vaccines (1 of 2) 1992 Adult Wellness Visit 08/11/2023 08/11/2022 COVID-19 Vaccine ( season) 2024 06/12/2022, 04/29/2021, 09/14/2020 Depression Monitoring 10/14/2024 10/15/2023 TSH 04/16/2025 04/16/2024, 05/17, 10/06/2022, Additional history exists DTap/Tdap Vaccines (2 - Td or Tdap) 06/13/2027 06/13/2017 *SPIROMETRY ONCE FOR ASTHMA-ADULT Addressed 02/28/2017 (Declined) Overridden with th e intention of not completing the topic Pneumococcal Vaccine: 65+ Years Completed 08/12/2018, 05/23/2017 Influenza Vaccine (FLU shot) Completed 04/16/2024, 03/27/2023, 06/12/2022, Additional history exists HPV (Gardasil) Vaccine Aged Out No lo nger eligible based on patient's age to complete this topic Hepatitis B Vaccine Aged Out No longe r eligible based on patient's age to complete this topic MENINGOCOCCAL (MENACTRA/MENVEO) Aged Out No longer eligible based on patient's age to complete this topic documented as of this encounter Medical Devices Implanted Type Area Millwright Helper Device Identifier Shelf Expiration Date Model / Serial / Lot Lens Li61ao 13.00mm 16.50 - [id number] - [id number] Implanted:Qty: 1 on 01/29/2024 by Dany Thomas MD at OR [facility] Left: Eye [employer] LOMB 09/12/2028 [id number] / [id number] / [id number] documented as of this encounter Procedures Procedure Name Priority Date/Time Associated Diagnosis Comments VA ECG ROUTINE ECG W/LEAST 12 LDS W/I&R Routine 04/28/2024 9:12 AM EDT Leg swelling documented in this encounter Results * (ABNORMAL) D-DIMER (04/28/2024 9:50 AM EDT) [facility] D-Dimer 5.86(H) <0.50 ug/mL FEU 04/28/2024 7:58 PM EDT LABORATORY [facility] Blood Venous blood specimen / Unknown Venipuncture / Unknown 04/28/2024 9:50 AM EDT 04/28/2024 9:50 AM EDT Narrative LABORATORY [facility] - 04/28/2024 7:58 PM EDT Rheumatoid factor at a level above 50 IU/mL may lead to an overestimation of the D-dimer level. A normal D-dimer result (<0.50 ug/mL FEU) has a negative predictive value of approximately 95% for the exclusion of acute pulmonary embolism (PE) or deep vein thrombosis when there is low or moderate pretest PE probability. Increased D-dimer values are abnormal but do not indicate a specific disease state and the D-dimer increase does not definitively correlate with clinical severity of disease. Ludmila SANTANA LAB BLOOD ORDER YE LABORATORY [facility] [address] [place] [address] * CBC (04/28/2024 9:50 AM EDT) [facility] WBC 6.96 4.00 - 10.80 K/uL 04/28/2024 10:51 AM EDT LABORATORY [place]-10 RBC 4.98 4.50 - 5.25 M/uL 04/28/2024 10:51 AM EDT LABORATORY [place] 57-10 HGB 15.4 14.0 - 16.8 g/dL 04/28/2024 10:51 AM EDT LABORATORY [place] 57[place]10 HCT 47.6 40.0 - 48.4 % 04/28/2024 10:51 AM EDT LABORATORY [place] 57[place]10 MCV 95.6 82.0 - 99.5 fL 04/28/2024 10:51 AM EDT LABORATORY [place] 57[place]10 MCH 30.9 27.0 - 34.0 pg 04/28/2024 10:51 AM EDT LABORATORY [place] 57[place]10 MCHC 32.4 32.0 - 36.0 g/dL 04/28/2024 10:51 AM EDT LABORATORY [place] 57[place]10 RDW 13.3 11.5 - 15.5 % 04/28/2024 10:51 AM EDT LABORATORY [place] 57-10 PLT 174 140 - 400 K/uL 04/28/2024 10:51 AM EDT LABORATORY [place] 57[place]10 MPV 12.0 6.6 - 11.1 fL 04/28/2024 10:51 AM EDT LABORATORY [place] 57-10 Blood Venous blood specimen / Unknown Venipuncture / Unknown 04/28/2024 9:50 AM EDT 04/28/2024 9:50 AM EDT Ludmila SANTANA LAB BLOOD ORDER YE LABORATORY [place] [facility] [address] * BASIC METABOLIC PANEL (04/28/2024 9:50 AM EDT) BUN 11 6 - 20 mg/dL 04/28/2024 11:33 AM EDT LABORATORY [place] 57[place]10 CREATININE 1.0 0.6 - 1.2 mg/dL 04/28/2024 11:33 AM EDT LABORATORY [facility] [place] [facility]10 EGFR 79 >=60 mL/min 04/28/2024 11:33 AM EDT [facility] Comment:eGFR is calculated b ased on the CKD-EPI 2020 equation. SODIUM 143 135 - 146 mmol/L 04/28/2024 11:33 AM EDT [facility] POTASSIUM 4.3 3.5 - 5.1 mmol/L 04/28/2024 11:33 AM EDT [facility] CHLORIDE 104 98 - 107 mmol/L 04/28/2024 11:33 AM EDT [facility] CO2 26 22 - 32 mmol/L 04/28/2024 11:33 AM EDT [facility] ANION GAP 13 7 - 15 mmol/L 04/28/2024 11:33 AM EDT [facility] GLUCOSE 102 70 - 120 mg/dL 04/28/2024 11:33 AM EDT [facility] CALCIUM 9.3 8.4 - 10.2 mg/dL 04/28/2024 11:33 AM EDT [facility] Blood Venous blood specimen / Unknown Venipuncture / Unknown 04/28/2024 9:50 AM EDT 04/28/2024 9:50 AM EDT Ludmila SANTANA LAB BLOOD ORDER YE LABORATORY [place] 57-10 [address] [place] [address] * EKG COMPLETE (TRACING AND INTERP) (04/28/2024 9:12 AM EDT) 04/28/2024 9:12 AM EDT Narrative Procedure Note Chato Broussard DO - 04/28/2024 9:12 AM EDT REASON FOR STUDY: irregular heart beat;irregular heart beat CONCLUSIONS: Sinus rhythm with frequent and consecutive premature atrial complexes. Right bundle branch block Left posterior fascicular block Bifascicular block Abnormal ECG When compared with ECG of 12-Jun-2023 09:02, Premature atrial complexes, short runs of PAT now present. Left posterior fascicular block is now Present Ventricular Rate: 82 Atrial Rate: 82 VA Interval: 136 QRS Duration: 116 QT/QTc: 402/469 ms P-R-T [place]: 57 : 148 : 22 degrees Ludmila Blair SANTANA EKG [facility] [address] CARDIOLOGY documented in this encounter Visit Diagnoses Diagnosis Acute diastolic heart failure (HCC)- Primary Acute diastolic heart failure Cellulitis of right lower extremity Cellulitis and abscess of leg, except foot Leg swelling Swelling of limb Pain of right lower leg Pain in limb documented in this encounter Advance Directives * Full Code (Latest Code Status on File) Date Activated Date Inactivated Comments 01/29/2024 11:11 AM 01/29/2024 5:18 PM This order reflects the patients wishes and were consensually agreed upon. Question Answer Comments Discussion of Advance Directives occurred with: Patient Does the patient have a Living Will? No Does the patient have Health Care Power of Attor deanna? No Care Teams Blocker And Polisher Gold Wheel Relationship Specialty Start Date End Date Adán Fink MD 132 [facility] [place] [address] PCP - General Family Medicine 08/31/16 documented as of this encounter
--- OUTSIDE RECORDS SUMMARY | 2024-04-30 06:09 | External Medical Summary | Summary of Care ---
Author Name Unknown Organization [facility] Address [address] [place] [address] Phone [phone] Care Team Providers Care Computer Information Science Professor Name Role Phone Adán Fink MD Primary Care Provider + Reason for Visit * Reason Comments Outpatient Testing Encounter Details Date Type Department Care Team (Late st Contact Info) Description 04/28/2024 9:50 AM EDT Laboratory Laboratory, [facility] 132 [place] [address] [facility] [address] [place] [address] Dyslipidemia, goal LDL below 100; Leg swelling; Acute diastolic heart failure (HCC); Cellulitis of right lower extremity; Pain of right lower leg Allergies No known active allergiesdocumented as of this encounter (statuses as of 04/28/2024) Medications Medication Sig Dispensed Refills Start Date End Date Status Multiple Vitamins-Minerals (ONE DAILY MENS 50+ MULTIVIT) TABS Active Levothyroxine Sodium 50 MCG Oral Tablet (Levoxyl)Indications:A cquired hypothyroidism Take 1 Tablet by mouth daily first thing in the morning. 100 Tablet 3 10/15/2023 Active Sertraline HCl 50 MG Oral Tablet (Zoloft) Take 1 Tablet by mouth in the morning. 100 Tablet 3 10/15/2023 Active Simvastatin 20 MG Oral Tablet (Zocor)Indications:Dys lipidemia, goal LDL below 100 Take 1 Tablet by mouth every evening. 100 Tablet 3 10/15/2023 Active Potassium Chloride Amy ER 20 MEQ Oral Tablet Extended ReleaseIndications:Khoa ateral leg edema Take 1 Tablet by mouth in the morning. 30 Tablet 04/16/2024 Active Cephalexin 500 MG Oral CapsuleIndications:Leg swelling,Cellulitis of right lower extremity,Pain of right lower leg Take 1 Capsule by mouth in the morning and 1 Capsule at noon and 1 Capsule before bedtime. 21 Capsule 04/28/2024 Active Furosemide 40 MG Oral Tablet (Lasix)Indications:Leg swelling,Acute diastolic heart failure (HCC) Take 1 Tablet by mouth in the morning. 90 Tablet 3 04/28/2024 Active Hospital, Clinic, or Other Facility Administered Medication Ordered Dose Route Frequency Start Date End Date Status Vitamin B-12 (Cyanocobalamin) inj 1,000 mcgIndications:B12 deficiency 1000 mcg IM [id number] 04/23/2024 03/25/2025 Active documented as of this encounter (statuses as of 04/28/2024) Active Problems Problem Noted Date Diagnosed Date [...] as of this encounter (statuses as of 04/28/2024) Resolved Problems Problem Noted Date Diagnosed Date [...] as of this encounter (statuses as of 04/28/2024) Immunizations Name Administration Dates Next Due COVID-19 mRNA, LNP-s, No Pre serve, 2-Dose Series ([employer]) 04/29/2021,09/14/2020 Covid-19, Mrna, Lnp-s, Pf, B ivalent, 30 Mcg, IM, 12 yrs and above ([employer]) 06/12/2022 Pneumococcal Conjugate Vacc, 13 Valent (Prevnar) [...] Date Smoking Tobacco: Never Smokeless Tobacco: Never Alcohol Use Standard Drinks/Week Comments No 0 [...] on file documented as of this encounter Plan of Treatment Upcoming Encounters Date Type Department Care Team (Late st Contact Info) Description 04/29/2024 2:45 PM EDT Imaging Radiology, [address] [address] 05/07/2024 10:30 AM EDT Office Visit Orthopaedics [facility] 132 [facility] [place] [address] Lewis Almaraz DO 132 [facility] [place] [address] 05/07/2024 4:00 PM EDT Nurse Only Ancillary [facility] 132 [facility] [place] [address] Brayan, Nurse Fam [facility] 132 [facility] [place] [address] 10/14/2024 9:30 AM EDT Cardiac Studies Cardiac Studies, [facility] 132 [facility] [place] [address] 10/16/2024 10:00 AM EDT Office Visit Family Practice [facility] [address] [place] [address] Adán Fink MD [address] [place] [address] Pending Results Name Type Priority Associated Diagnoses Date /Time LIPID PANEL WITH DIRECT LDL IF TG IS HIGH Lab Routine Dyslipidemia, goal LDL below 100 04/28/2024 9:50 AM EDT BASIC METABOLIC PANEL Lab Routine Leg swelling Acute diastolic heart failure (HCC) 04/28/2024 9:50 AM EDT CBC Lab Routine Cellulitis of right lower extremity 04/28/2024 9:50 AM EDT D-DIMER Lab Routine Leg swelling Cellulitis of right lower extremity Pain of right lower leg 04/28/2024 9:50 AM EDT Health Maintenance Due Date Last Done Comments [...] this encounter Medical Devices Implanted Type Area Repair Specialist Device Identifier Shelf Expiration Date Model / Serial / Lot Lens Li61ao 13.00mm 16.50 - [id number] - [id number] Implanted:Qty: 1 on 01/29/2024 by Dany Thomas MD at OR [facility] Left: Eye [employer] LOM[employer] 09/12/2028 [id number] / [id number] / [id number] documented as of this encounter Visit Diagnoses Diagnosis Dyslipidemia, goal LDL below 100 Other and unspecified hyperlipidemia Leg swelling Swelling of limb Acute diastolic heart failure (HCC) Acute diastolic heart failure Cellulitis of right lower extremity Cellulitis and abscess of leg, except foot Pain of right lower leg Pain in [...] Power of Attor deanna? No Care Teams Computer Information Science Professor Relationship Specialty Start Date End Date Adán Fink MD [address] [place] [address] PCP - General Family Medicine 08/31/16 documented as of this encounter
--- OUTSIDE RECORDS SUMMARY | 2024-04-30 06:09 | External Medical Summary | Summary of Care ---
Author Name Unknown Organization [facility] Address [address] [place] [address] Phone [phone] Care Team Providers Care General Machine Operator Name Role Phone Adán Fink MD Primary Care Provider + Reason for Visit * Reason Onset Date Comments Test Results 04/20/2024 Encounter Details Date Type Department Care Team (Late st Contact Info) Description 04/20/2024 Telephone Family Practice [facility] [email or web address] [place] [address] Adán Fink MD [email or web address] [facility] [place] [address] Test Results Allergies No known active allergiesdocumented as of this encounter (statuses as of 04/29/2024) Medications Medication Sig Dispensed Refills Start Date End Date Status Multiple Vitamins-Minerals (ONE DAILY MENS 50+ MULTIVIT) TABS Active Levothyroxine Sodium 50 MCG Oral Tablet (Levoxyl)Indications :Acquired hypothyroidism Take 1 Tablet by mouth daily first thing in the morning. 100 Tablet 3 10/15/2023 Active Sertraline HCl 50 MG Oral Tablet (Zoloft) Take 1 Tablet by mouth in the morning. 100 Tablet 3 10/15/2023 Active Simvastatin 20 MG Oral Tablet (Zocor)Indications:D yslipidemia, goal LDL below 100 Take 1 Tablet by mouth every evening. 100 Tablet 3 10/15/2023 Active Potassium Chloride Amy ER 20 MEQ Oral Tablet Extended ReleaseIndications:B ilateral leg edema Take 1 Tablet by mouth in the morning. 30 Tablet 04/16/2024 Active B-12 1000 MCG Oral TabletIndications:B1 2 deficiency Take 1,000 mcg by mouth every evening. 100 Tablet 3 10/15/2023 04/23/2024 Discontinue d(Medicatio n List Clean Up) Furosemide 20 MG Oral Tablet (Lasix)Indications:B ilateral leg edema Take 1 Tablet by mouth in the morning. 30 Tablet 04/16/2024 04/28/2024 Discontinue d(Medicatio n/Dose Changed) Hospital, Clinic, or Other Facility Administered Medication Ordered Dose Route Frequency Start Date End Date Status Vitamin B-12 (Cyanocobalamin) inj 1,000 mcgIndications:B12 deficiency 1000 mcg IM [id number] 04/23/2024 03/25/2025 Active documented as of this [...] mRNA, LNP-s, No Pre serve, 2-Dose Series ([employer]) 04/29/2021,09/14/2020 Covid-19, Mrna, Lnp-s, Pf, B ivalent, 30 Mcg, IM, 12 yrs and above ([employer]) 06/12/2022 Pneumococcal Conjugate Vacc, 13 Valent (Prevnar) 05/23/2017 Pneumococcal Polysaccharide PPV23 (Pneumovax) 08/12/2018 RSV Vac., Bivalent, Perfusio n F, Pf,0.5 Ml ([employer]) 10/15/2023 Seasonal Influenza Vac., MDV , IM, 0.5 mL ([employer]uz[employer]) 03/17/2015,04/06/2014,04/04/2013,04/09,04/27/2011,03/16/2009,06/07/2005 Seasonal Influenza, High Dos e, Trivalent, PF, [...] on file documented as of this encounter Miscellaneous Notes * Telephone Encounter - Bettye Sanders OSA - 04/23/2024 1:58 PM EDT Spoke with pt gigi BECKER for 05/07 * Telephone Encounter - Adán Fink MD - 04/23/2024 1:56 PM EDT Will stop B12 pills & start monthly shots Please schedule nurse visit * Telephone Encounter - Eneida Lee LPN - 04/23/2024 1:19 PM EDT He was taking them everyday, but ran out, and would have missed only a "couple of day" around the time of the bw was drawn. He had to do injections before. Ok to order injections? * Telephone Encounter - Adán Fink MD - 04/20/2024 10:19 PM EDT Nursing-please call pt. Vit B12 is quite low---is he still taking daily B12 pill? If yes, he's not absorbing it well---will need to switch to shots--ideally weekly x4 weeks, then monthly. If just starting monthly is easier , that is ok, too. Can schedule nurse visit (we can also teach him to do at home if he wants) documented in this encounter Plan of Treatment Upcoming Encounters Date Type Department Care Team (Late st Contact Info) Description 04/29/2024 2:45 PM EDT Imaging Radiology, [address] [address] 05/07/2024 10:30 AM EDT Office Visit Orthopaedics [facility] [address] [place] [address] Lewis Almaraz DO [address] [place] [address] 05/07/2024 11:00 AM EDT Nurse Only Ancillary [facility] [address] [place] [address] Brayan Nurse [facility] [address] [place] [address] 10/14/2024 9:30 AM EDT Cardiac Studies Cardiac Studies, [facility] [address] [place] [address] 10/16/2024 10:00 AM EDT Office Visit Family Practice [facility] [address] [place] [address] Adán Fink MD [address] [place] [address] Health Maintenance Due Date Last Done Comments [...] this encounter Medical Devices Implanted Type Area Medical Underwriter Device Identifier Shelf Expiration Date Model / Serial / Lot Lens Li61ao 13.00mm 16.50 - [id number] - [id number] Implanted:Qty: 1 on 01/29/2024 by Dany Thomas MD at OR [facility] Left: Eye [employer] LOMB 09/12/2028 [id number] / [id number] / [id number] documented as of this encounter Visit Diagnoses Diagnosis B12 deficiency- Primary Other B-complex deficiencies documented in this encounter Advance Directives * [...] Power of Attor deanna? No Care Teams General Machine Operator Relationship Specialty Start Date End Date Adán Fink MD [address] [place] [address] PCP - General Family Medicine 08/31/16 documented as of this encounter
--- OUTSIDE RECORDS SUMMARY | 2024-04-30 06:09 | External Medical Summary | Summary of Care ---
Author Name Unknown Organization [facility] Address [address] [place] [address] Phone [phone] Care Team Providers Care Cable Puller Name Role Phone Adán Fink MD Primary Care Provider + Reason for Visit * Reason Onset Date Comments Test Results 04/20/2024 Encounter Details Date Type Department Care Team (Late st Contact Info) Description 04/20/2024 Telephone Family Practice [facility] 132 [facility] [place] [address] Adán Fink MD 132 [facility] [place] [address] Test Results Allergies No known active allergiesdocumented as of this encounter (statuses as of 04/23/2024) Medications Medication Sig Dispensed Refills Start Date [...] every evening. 100 Tablet 3 10/15/2023 Active Furosemide 20 MG Oral Tablet (Lasix)Indications:B ilateral leg edema Take 1 Tablet by mouth in the morning. 30 Tablet 04/16/2024 Active Potassium Chloride Amy ER 20 MEQ Oral Tablet Extended ReleaseIndications:B ilateral leg edema Take 1 Tablet by mouth in the morning. 30 Tablet 04/16/2024 Active B-12 1000 MCG Oral TabletIndications:B1 2 deficiency Take 1,000 mcg by mouth every evening. 100 Tablet 3 10/15/2023 04/23/2024 Discontinue d(Medicatio n List Clean Up) Hospital, Clinic, or Other Facility Administered Medication Ordered Dose Route Frequency Start Date End Date Status Vitamin B-12 (Cyanocobalamin) inj 1,000 mcgIndications:B12 deficiency 1000 mcg IM [id number] 04/23/2024 03/25/2025 Active documented as of this encounter (statuses as of 04/23/2024) Active Problems Problem Noted Date Diagnosed Date [...] as of this encounter (statuses as of 04/23/2024) Resolved Problems Problem Noted Date Diagnosed Date [...] as of this encounter (statuses as of 04/23/2024) Immunizations Name Administration Dates Next Due COVID-19 mRNA, LNP-s, No Pre serve, 2-Dose Series ([employer]) 04/29/2021,09/14/2020 Covid-19, Mrna, Lnp-s, Pf, B ivalent, 30 Mcg, IM, 12 yrs and above ([employer]) 06/12/2022 Pneumococcal Conjugate Vacc, 13 Valent (Prevnar) [...] 04/28/2024 9:00 AM EDT Office Visit Cardiology, [facility] [address] [place] [address] Ludmila Jha CRNP [address] [place] [address] 05/07/2024 10:30 AM EDT Office Visit Orthopaedics [facility] [address] [place] [address] Lewis Almaraz DO [address] [place] [address] 05/07/2024 4:00 PM EDT Nurse Only Ancillary [facility] [address] [place] [address] Brayan Nurse [facility] [address] [place] [address] 10/16/2024 10:00 AM EDT Office Visit Family Practice [facility] [address] [place] [address] Adán Fink MD [address] [place] [address] Health Maintenance Due Date Last Done Comments [...] this encounter Medical Devices Implanted Type Area Anthropology And Archeology Instructor Device Identifier Shelf Expiration Date Model / Serial / Lot Lens Li61ao 13.00mm 16.50 - [id number] - [id number] Implanted:Qty: 1 on 01/29/2024 by Dany Thomas MD at OR [facility] Left: Eye [employer] LOMB 09/12/2028 [id number] / [id number] / [id number] documented as of this encounter Visit Diagnoses [...] Power of Attor deanna? No Care Teams Cable Puller Relationship Specialty Start Date End Date Adán Fink MD 132 [facility] [place] [address] PCP - General Family Medicine 08/31/16 documented as of this encounter
--- OUTSIDE RECORDS SUMMARY | 2024-04-30 06:09 | External Medical Summary ---
Author Name Unknown Address Unknown Organization [id number]:LABORATORY [facility] [place] [address] [place] [address] Laboratory Report Ordering Provider Test Date Status ALEN JONES 04/28/2024 09:50:45 Final Observation Date Value Abnormality Reference (Units ) Status WBC, Total 04/28/2024 09:50:45 6.96 4.00-10.8 0 (K/uL) Final RBC 04/28/2024 09:50:45 4.98 4.50-5.25 (M/uL) Final Hemoglobin 04/28/2024 09:50:45 15.4 14.0-16.8 (g/dL) Final HCT 04/28/2024 09:50:45 47.6 40.0-48.4 (%) Final MCV 04/28/2024 09:50:45 95.6 82.0-99.5 (fL) Final MCH 04/28/2024 09:50:45 30.9 27.0-34.0 (pg) Final MCHC 04/28/2024 09:50:45 32.4 32.0-36.0 (g/dL) Final RDW 04/28/2024 09:50:45 13.3 11.5-15.5 (%) Final Platelets 04/28/2024 09:50:45 174 140-400 (K /uL) Final MPV 04/28/2024 09:50:45 12.0 6.6-11.1 ( fL) Final Performing Location LABORATORY [facility] [place] [address] [place] [address]
--- OUTSIDE RECORDS SUMMARY | 2024-04-30 06:09 | External Medical Summary ---
Author Name Unknown Address Unknown Organization [id number]:LABORATORY [place] [address] [facility] [place] [address] Laboratory Report Ordering Provider Test Date Status ALEN JONES 04/28/2024 09:50:45 Final Rheumatoid factor at a level above 50 [...] definitively correlate with clinical severity of disease. Observation Date Value Abnormality Reference (Units ) Status Fibrin D-dimer FEU [Mass/volume] in Platelet poor plasma by Immunoassay 04/28/2024 09:50:45 5.86 Above high normal <0.50 (ug/mL FEU) Final Performing Location LABORATORY [place] [address] [facility] [address] [place] [address]
--- OUTSIDE RECORDS SUMMARY | 2024-04-30 06:09 | External Medical Summary | Summary of Care ---
Author Name Unknown Organization [facility] Address [address] [place] [address] Phone [phone] Care Team Providers Care Development Associate Name Role Phone Adán Fink MD Primary Care Provider + Reason for Visit * Reason Onset Date Comments Test Results 04/20/2024 Encounter Details Date Type Department Care Team (Late st Contact Info) Description 04/20/2024 Telephone Family Practice [facility] [email or web address] [place] [address] Adán Fink MD [email or web address] [facility] [place] [address] Test Results Allergies No known active allergiesdocumented [...] inj 1,000 mcgIndications:B12 deficiency 1000 mcg IM [id number] 04/23/2024 03/25/2025 Active documented as of this [...] mRNA, LNP-s, No Pre serve, 2-Dose Series ([employer]) 04/29/2021,09/14/2020 Covid-19, Mrna, Lnp-s, Pf, B ivalent, 30 Mcg, IM, 12 yrs and above ([employer]) 06/12/2022 Pneumococcal Conjugate Vacc, 13 Valent (Prevnar) [...] 04/28/2024 9:00 AM EDT Office Visit Cardiology, [facility] [address] [place] [address] Ludmila Jha CRNP [address] [place] [address] 05/07/2024 10:30 AM EDT Office Visit Orthopaedics [facility] [address] [place] [address] Lewis Almaraz DO [address] [place] [address] 05/07/2024 4:00 PM EDT Nurse Only Ancillary [facility] [address] [place] [address] Brayan Nurse [facility] [address] [place] [address] 10/16/2024 10:00 AM EDT Office Visit Family Practice [facility] [address] [place] [address] Adán Fink MD [address] [place] [address] Health Maintenance Due Date Last Done Comments [...] this encounter Medical Devices Implanted Type Area Public Records Officer Device Identifier Shelf Expiration Date Model / Serial / Lot Lens Li61ao 13.00mm 16.50 - [id number] - [id number] Implanted:Qty: 1 on 01/29/2024 by Dany Thomas MD at OR [facility] Left: Eye [employer] 09/12/2028 [id number] / [id number] / [id number] documented as of this encounter Visit Diagnoses [...] Power of Attor deanna? No Care Teams Development Associate Relationship Specialty Start Date End Date Adán Fink MD [address] [facility] [place] [address] PCP - General Family Medicine 08/31/16 documented as of this encounter
--- OUTSIDE RECORDS SUMMARY | 2024-04-30 06:09 | External Medical Summary ---
Author Name Unknown Address Unknown Organization [id number]:LABORATORY [facility] - [address] [facility] [address] Laboratory Report Ordering Provider Test Date Status ALEN JONES 04/28/2024 09:50:45 Final Observation Date Value Abnormality Reference (Units ) Status Triglyceride 04/28/2024 09:50:45 124 <=174 ( mg/dL) Final Triglyceride Reference Range s (mg/dL):
<150 Acceptable
150-174 Borderline high
175-499 High
>=500 Very high Cholesterol 04/28/2024 09:50:45 140 <200 (mg /dL) Final Total Cholesterol Reference Ranges (mg/dL):
<200 Desirable
200-239 Borderline high
>=240 High HDL 04/28/2024 09:50:45 45 >39 (mg/dL ) Final HDL Cholesterol Reference Ra nges (mg/dL):
>=60 High (Desirable)
<50 Low (Undesirable) For Females
<40 Low (Undesirable) For Males NON-HDL CHOLESTEROL 04/28/2024 09:50:45 95 <=159 (mg/dL) Final Non-HDL Cholesterol Referenc e Range (mg/dL):
<100 Target level for high risk ASCVD patient
<130 Optimal for general population
130-159 Near optimal for general population
160-189 Borderline High
190-219 High
>=220 Very High LDL, (calculated) 04/28/2024 09:50:45 70 <= 129 (mg/dL) Final LDL Cholesterol Reference Ra nges (mg/dL):
<70 Target level for high risk ASCVD patient
<100 Optimal for general population
100-129 Near optimal for general population
130-159 Borderline high
160-189 High
>=190 Very high Performing Location LABORATORY [facility] - [address] [facility] [address]
--- OUTSIDE RECORDS SUMMARY | 2024-04-30 06:10 | External Medical Summary ---
Author Name Unknown Address Unknown Organization [id number]:LAB[facility]ATORY [facility] [place] [address] [place] [address] Laboratory Report Ordering Provider Test Date Status IRINA DAVILA 04/16/2024 11:53:32 Final Observation Date Value Abnormality Reference (Units ) Status BUN 04/16/2024 11:53:32 7 6-20 (mg/dL) Final Creatinine 04/16/2024 11:53:32 0.9 0.6-1.2 (mg/dL) Final Glomerular filtration rate/1.73 sq M.predicted [Volume Rate/Area] in Serum, Plasma or Blood by Creatinine-based formula (CKD-EPI) 04/16/2024 11:53:32 85 >=60 (mL/min) Final eGFR is calculated based on the CKD-EPI 2020 equation. Sodium 04/16/2024 11:53:32 141 135-146 (m mol/L) Final Potassium 04/16/2024 11:53:32 3.8 3.5-5.1 (m mol/L) Final Cl 04/16/2024 11:53:32 107 98-107 (mm ol/L) Final CO2 04/16/2024 11:53:32 22 22-32 (mmo l/L) Final Anion gap 04/16/2024 11:53:32 12 7-15 (mmol /L) Final Glucose 04/16/2024 11:53:32 100 70-120 (mg /dL) Final Calcium 04/16/2024 11:53:32 9.0 8.4-10.2 ( mg/dL) Final Performing Location LABORATORY [facility] [place] - [address] [place] [address]
--- OUTSIDE RECORDS SUMMARY | 2024-04-30 06:10 | External Medical Summary ---
Author Name Unknown Address Unknown Organization [id number]:LABORATORY [facility] [place] - [address] [place] [address] Laboratory Report Ordering Provider Test Date Status IRINA DAVILA 04/16/2024 11:53:32 Final Observation Date Value Abnormality Reference (Units ) Status Vitamin B12 04/16/2024 11:53:32 195 Below low normal 2 32-1245 (pg/mL) Final Performing Location LABORATORY C - [address] [place] [address]
--- OUTSIDE RECORDS SUMMARY | 2024-04-30 06:10 | External Medical Summary | Summary of Care ---
Author Name Unknown Organization [facility] Address [address] [place] [address] Phone [phone] Care Team Providers Care Philosophy Instructor Name Role Phone Adán Fink MD Primary Care Provider + Reason for Visit * Reason Comments Outpatient Testing Encounter Details Date Type Department Care Team (Late st Contact Info) Description 04/16/2024 11:50 AM EDT Laboratory Laboratory, [facility] [address] [place] [address] [facility] [address] [place] [address] Abnormal CBC; B12 deficiency; Hypothyroidism due to acquired atrophy of thyroid; Bilateral leg edema Allergies No known active allergiesdocumented as of this encounter (statuses as of 04/16/2024) Medications Medication Sig Dispensed Refills Start Date End Date Status Multiple Vitamins-Minerals (ONE DAILY MENS 50+ MULTIVIT) TABS Active Levothyroxine Sodium 50 MCG Oral Tablet (Levoxyl)Indications:Ac quired hypothyroidism Take 1 Tablet by mouth daily first thing in the morning. 100 Tablet 3 10/15/2023 Active Sertraline HCl 50 MG Oral Tablet (Zoloft) Take 1 Tablet by mouth in the morning. 100 Tablet 3 10/15/2023 Active B-12 1000 MCG Oral TabletIndications:B12 deficiency Take 1,000 mcg by mouth every evening. 100 Tablet 3 10/15/2023 Active Simvastatin 20 MG Oral Tablet (Zocor)Indications:Dysl ipidemia, goal LDL below 100 Take 1 Tablet by mouth every evening. 100 Tablet 3 10/15/2023 Active Furosemide 20 MG Oral Tablet (Lasix)Indications:Bila teral leg edema Take 1 Tablet by mouth in the morning. 30 Tablet 04/16/2024 Active Potassium Chloride Amy ER 20 MEQ Oral Tablet Extended ReleaseIndications:Bila teral leg edema Take 1 Tablet by mouth in the morning. 30 Tablet 04/16/2024 Active documented as of this encounter (statuses as of 04/16/2024) Active Problems Problem Noted Date Diagnosed Date [...] as of this encounter (statuses as of 04/16/2024) Resolved Problems Problem Noted Date Diagnosed Date [...] as of this encounter (statuses as of 04/16/2024) Immunizations Name Administration Dates Next Due COVID-19 mRNA, LNP-s, No Pre serve, 2-Dose Series ([employer]) 04/29/2021,09/14/2020 Covid-19, Mrna, Lnp-s, Pf, B ivalent, 30 Mcg, IM, 12 yrs and above ([employer]) 06/12/2022 Pneumococcal Conjugate Vacc, 13 Valent (Prevnar) [...] 04/28/2024 9:00 AM EDT Office Visit Cardiology, [facility] [address] [place] [address] Ludmila Jha CRNP [address] [place] [address] 05/07/2024 10:30 AM EDT Office Visit Orthopaedics [facility] [address] [place] [address] Lewis Almaraz DO [address] [place] [address] 10/16/2024 10:00 AM EDT Office Visit Family Practice [facility] [address] [place] [address] Adán Fink MD [address] [place] [address] Pending Results Name Type Priority Associated Diagnoses Date /Time CBC WITH WBC DIFFERENTIAL AND ANEMIA REFLEX WORKUP Lab Routine Abnormal CBC 04/16/2024 11:53 AM EDT VITAMIN B12 Lab Routine B12 deficiency 04/16/2024 11:53 AM EDT BASIC METABOLIC PANEL Lab Routine Hypothyroidism due to acquired atrophy of thyroid 04/16/2024 11:53 AM EDT TSH WITH FREE T4 IF INDICATED Lab Routine Hypothyroidism due to acquired atrophy of thyroid 04/16/2024 11:53 AM EDT ANEMIA CBC Lab Routine Abnormal CBC 04/16/2024 11:53 AM EDT DIFFERENTIAL, AUTOMATED Lab Routine Abnormal CBC 04/16/2024 11:53 AM EDT ANEMIA REFLEX CHEMISTRY HOLD Lab Routine Abnormal CBC 04/16/2024 11:53 AM EDT Health Maintenance Due Date Last Done Comments Zoster Vaccines (1 of 2) 1990 Adult Wellness Visit 08/11/2023 08/11/2022 COVID-19 Vaccine ( season) 2024 06/12/2022, 04/29/2021, 09/14/2020 TSH 06/12/2024 06/12/2023, 09/14, 10/05/2021, Additional history exists Depression Monitoring 10/14/2024 10/15/2023 DTap/Tdap Vaccines (2 - Td or Tdap) [...] this encounter Medical Devices Implanted Type Area Pelt Salter Device Identifier Shelf Expiration Date Model / Serial / Lot Lens Li61ao 13.00mm 16.50 - [id number] - [id number] Implanted:Qty: 1 on 01/29/2024 by Dany Thomas MD at OR [facility] Left: Eye [employer] 09/12/2028 [id number] / [id number] / [id number] documented as of this encounter Visit Diagnoses Diagnosis Abnormal CBC Other abnormal blood chemistry B12 deficiency Other B-complex deficiencies Hypothyroidism due to acquired atrophy of thyroid Bilateral leg edema Edema documented in this encounter Advance Directives * [...] Power of Attor deanna? No Care Teams Philosophy Instructor Relationship Specialty Start Date End Date Adán Fink MD [address] [place] [address] PCP - General Family Medicine 08/31/16 documented as of this encounter
--- OUTSIDE RECORDS SUMMARY | 2024-04-30 06:10 | External Medical Summary | Summary of Care ---
Author Name Unknown Organization [facility] Address [address] [place] [address] Phone [phone] Care Team Providers Care Information Assistant Name Role Phone Adán Fink MD Primary Care Provider + Reason for Visit * Reason Onset Date Comments Appointment 12/21/2023 No appointments Encounter Details Date Type Department Care Team (Late st Contact Info) Description 12/21/2023 Telephone Family Practice [facility] [address] [place] [address] Adán Fink MD [address] [place] [address] Appointment (No appointments) Allergies No known active allergiesdocumented as of this encounter (statuses as of 03/21/2024) Medications Medication Sig Dispensed Refills Start Date [...] every evening. 100 Tablet 3 10/15/2023 Active documented as of this encounter (statuses as of 03/21/2024) Active Problems Problem Noted Date Diagnosed Date [...] as of this encounter (statuses as of 03/21/2024) Resolved Problems Problem Noted Date Diagnosed Date [...] as of this encounter (statuses as of 03/21/2024) Immunizations Name Administration Dates Next Due COVID-19 mRNA, LNP-s, No Pre serve, 2-Dose Series ([employer]) 04/29/2021,09/14/2020 Covid-19, Mrna, Lnp-s, Pf, B ivalent, 30 Mcg, IM, 12 yrs and above ([employer]) 06/12/2022 Pneumococcal Conjugate Vacc, 13 Valent (Prevnar) 05/23/2017 Pneumococcal Polysaccharide PPV23 (Pneumovax) 08/12/2018 RSV Vac., Bivalent, Perfusio n F, Pf,0.5 Ml ([employer]) 10/15/2023 Seasonal Influenza, PF, 6 M & above, IM , (FluLaval or Fluzone) 04/05/2020,04/01/2018,04/12/2017 Seasonal Influenza, Quadriva lent Hd (Fluzone Hd) 03/27/2023,06/12/2022,03/31/2021 Seasonal Influenza, Quadriva lent, No Preserve, IM 04/05/2016 Seasonal Influenza, Trivalen t, (IIV3), with Preserv, (Fluzone) 03/17/2015,04/06/2014,04/04/2013,04/09,04/27/2011,03/16/2009 Seasonal Influenza, Trivalen t, Adjuvanted, 65+ YRS, [...] encounter Miscellaneous Notes * Telephone Encounter - Alejandrina Negron OSA - 12/26/2023 8:20 AM EDT Daughter has not called back, called the pt and he states he's feeling better and an appt is not needed, he states if he gets bad he will call us * Telephone Encounter - Alejandrina Negron OSA - 12/25/2023 8:40 AM EDT LM for daughter to call back for an appt for pt with any provider * Telephone Encounter - Alejandrina Negron OSA - 12/24/2023 10:44 AM EDT LM for daughter to call to schedule an appt with any provider * Telephone Encounter - Jose Daniel Smith OSA - 12/21/2023 4:39 PM EDT No Appointments Available No appts until January; daughter feels his bronchial cough could be serious Patient declined appointments?: No What Visit Type is needed? Acute If Acute Visit Type is needed, were surrounding clinics offered to patient (Yes/No)? Yes Was patient offered appointments with other available providers (Yes/No)? Yes See Call Details? (Yes or No): Yes documented in this encounter Plan of Treatment Upcoming Encounters Date Type Department Care Team (Late st Contact Info) Description 04/16/2024 11:00 AM EDT [facility] [address] [place] [address] Lauren Gonzalez CRNP [address] [place] [address] 04/28/2024 9:00 AM EDT Office Visit Cardiology, [facility] [address] [place] [address] Ludmila Jha CRNP [address] [place] [address] 05/07/2024 10:30 AM EDT Office Visit Orthopaedics [facility] [address] [place] [address] Lewis Almaraz DO [address] [place] [address] 10/16/2024 10:00 AM EDT Office Visit Family Practice [facility] [address] [place] [address] Adán Fink MD [address] [place] [address] Health Maintenance Due Date Last Done Comments Zoster Vaccines (1 of 2) 1990 Adult Wellness Visit 08/11/2023 08/11/2022 COVID-19 Vaccine ( season) 2024 06/12/2022, 04/29/2021, 09/14/2020 Influenza Vaccine (FLU shot) (#1) 2024 03/27/2023, 06/12/2022, 03/31/2021, Additional history exists TSH 06/12/2024 06/12/2023, 09/14, 10/05/2021, Additional history exists Depression Monitoring 10/14/2024 10/15/2023 DTap/Tdap Vaccines (2 - Td or Tdap) 06/13/2027 06/13/2017 *SPIROMETRY ONCE FOR ASTHMA-ADULT Addressed 02/28/2017 (Declined) Overridden with th e intention of not completing the topic Pneumococcal Vaccine: 65+ Years Completed 08/12/2018, 05/23/2017 HPV (Gardasil) Vaccine Aged Out No lo nger eligible based on patient's age to complete this topic Hepatitis B Vaccine Aged Out No longe r eligible based on patient's age to complete this topic MENINGOCOCCAL (MENACTRA/MENVEO) Aged Out No longer eligible based on patient's age to complete this topic documented as of this encounter Medical Devices Implanted Type Area Ram Press Operator Device Identifier Shelf Expiration Date Model / Serial / Lot Lens Li61ao 13.00mm 16.50 - [id number] - [id number] Implanted:Qty: 1 on 01/29/2024 by Dany Thomas MD at [facility] Left: Eye [employer] 09/12/2028 [id number] / [id number] / [id number] documented as of this encounter Advance Directives * Full Code [...] Power of Attor deanna? No Care Teams Information Assistant Relationship Specialty Start Date End Date Adán Fink MD [address] [place] [address] PCP - General Family Medicine 08/31/16 documented as of this encounter
--- OUTSIDE RECORDS SUMMARY | 2024-04-30 06:10 | External Medical Summary ---
Author Name Unknown Address Unknown Organization K01:LAB[facility]ATORY [facility] [place] [place] [address] [place] [address] Laboratory Report Ordering Provider Test Date Status IRINA DAVILA 04/16/2024 11:53:32 Final Observation Date Value Abnormality Reference (Units ) Status TSH 04/16/2024 11:53:32 2.60 0.27-4.20 (uIU/mL) Final Performing Location LABOR[facility]ORY [facility] [place] [address] [place] [address]
--- OUTSIDE RECORDS SUMMARY | 2024-04-30 06:10 | External Medical Summary ---
Author Name Unknown Address Unknown Organization K01:LABORATORY [facility] [place] - [address] [facility] [place] [address] Laboratory Report Ordering Provider Test Date Status IRINA DAVILA 04/16/2024 11:53:32 Final Observation Date Value Abnormality Reference (Units ) Status SYNC LEUKOCYTES IN BLOOD BY AUTOMATED COUNT 04/16/2024 11:53:32 6.48 4.00-10.80 (K/uL) Final Segs 04/16/2024 11:53:32 46.0 40.0-75.0 (%) Final Lymphs % 04/16/2024 11:53:32 42.9 Above high normal 18.0-42.0 (%) Final Monos 04/16/2024 11:53:32 9.4 1.0-11.0 (%) Final Eosinophils 04/16/2024 11:53:32 1.2 0.0-6.0 (%) Final Basos 04/16/2024 11:53:32 0.3 0.0-2.0 (%) Final Immature Granulocyte, Percent 04/16/2024 11:53:32 0.2 0.0-2.0 (%) Final Absolute Segs 04/16/2024 11:53:32 2.98 1.80-7.70 (K/uL) Final Lymphs, absolute 04/16/2024 11:53:32 2.78 1.00-4.80 (K/ul) Final Monos, Abs 04/16/2024 11:53:32 0.61 0.00-1.10 (K/uL) Final Eos, Abs 04/16/2024 11:53:32 0.08 0.00-0.70 (K/uL) Final Basos, Abs 04/16/2024 11:53:32 0.02 0.00-0.20 (K/uL) Final Immature Granulocytes, Number 04/16/2024 11:53:32 0.01 0.00-0.20 (K/uL) Final Performing Location LABORATORY [facility] [place] - [facility] [place] [address]
--- OUTSIDE RECORDS SUMMARY | 2024-04-30 06:10 | External Medical Summary | Summary of Care ---
Author Name Unknown Organization [facility] Address [address] [place] [address] Phone [phone] Care Team Providers Care Insole Reinforcer Name Role Phone Adán Fink MD Primary Care Provider + Reason for Visit * Reason Onset Date Comments Follow Up Pt here with son for follow up, c/o R leg pain, swelling and redness for the past month Medication Administration 04/16/2024 Flu an d/or Pneumo Inj Encounter Details Date Type Department Care Team (Late st Contact Info) Description 04/16/2024 11:00 AM EDT [facility] [place] [address] [facility] [place] [address] Bilateral leg edema*; Need for prophylactic vaccination and inoculation against influenza; Pericardial effusion Allergies No known active allergiesdocumented as of [...] mRNA, LNP-s, No Pre serve, 2-Dose Series ([employer]) 04/29/2021,09/14/2020 Covid-19, Mrna, Lnp-s, Pf, B ivalent, 30 Mcg, IM, 12 yrs and above ([employer]) 06/12/2022 Pneumococcal Conjugate Vacc, 13 Valent (Prevnar) [...] Sign Reading Time Taken Comments Blood Pressure 108/64 04/16/2024 10:59 AM EDT Pulse 84 04/16/2024 10:59 AM EDT irre gular Temperature 36.6 C (97.9 F) 04/16/2024 10:59 AM E DT Respiratory Rate 18 04/16/2024 10:59 AM EDT Oxygen Saturation 98% 04/16/2024 10:59 AM EDT Inhaled Oxygen Concentration - - Weight 91.6 kg (202 lb) 04/16/2024 10:59 AM EDT Height 180 cm (5' 10.87") 04/16/2024 10:59 AM ED T Body Mass Index 28.28 04/16/2024 10:59 AM EDT documented in this encounter Progress Notes * Lauren Gonzalez CRNP - 04/16/2024 11:15 AM EDT Images from the original note were not included. Follow up Family Medicine Visit History of Present Illness Kleber Darden is a very pleasant 84 year old male with PMH listed below presenting with f/u on leg swelling. Chronic leg swellings, worse past month. +redness and swelling past month Elevate leg as much as possible Swelling is slightly better when he wakes up in the morning but worse as the day goes. Compression socks made things worse. Denies chest pain or SOB. Had echo September 2023, result as below The examination is adequate to evaluate the referral indication. The LV wall thickness is normal. The left ventricular wall motion is normal. The qualitative LV ejection fraction is 60-64% (normal). The left ventricular diastolic function is mildly abnormal (grade I). Mild tricuspid regurgitation is present. There is no evidence of pulmonary hypertension. There is a small circumferential pericardial effusion with thickening and organization. Effusion isof non hemodynamic significance, no tamponade. 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 Social Determinants of Health Financial Resource Strain: Low Risk (10/15/2023) Financial Resource Strain Do you have any trouble paying for your medications, or do you think you might in the future? (Adult - for ages 18 years and over): No Does your family have trouble paying for medicine? (Household - for ages 0-17 years): Not on file Food Insecurity: No Food Insecurity (10/15/2023) Food Insecurity Do you need food for this week? (Adult - for ages 18 years and over): No Are you able to get enough food for your family? (Household - for ages 0-17 years): Not on file Does your family need food this week? (Household - for ages 0-17 years): Not on file Do you always have enough food for your family? (Household - for ages 0-17 years): Not on file Transportation Needs: No Transportation Needs (10/15/2023) Transportation Needs Do you have trouble getting a ride to medical visits or work? (Adult - for ages 18 years and over):Never True Does your family have a hard time getting a ride to doctors visits? (Household - for ages 0-17 years): Not on file Has lack of transportation kept you from medical appointments, meetings, work, or from getting things needed for daily living? Check all that apply. (Adult - for ages 18 years and over): Not on file Do you (or your family) have trouble finding or paying for a ride (transportation)? (Household - for ages 0-17 years): Not on file Social Connections: Socially Integrated (10/15/2023) Social Connections How often do you feel lonely or isolated from those around you? (Adult - for ages 18 years and over): Never Housing Stability: Low Risk (10/15/2023) Housing Stability Do you currently live in a care home or have no steady place to sleep at night? (Adult - for ages 18 years and over): No Do you think you are at risk of becoming homeless? (Adult - for ages 18 years and over): No Does your family worry about paying for your home or becoming homeless? (Household - for ages 0-17 years): Not on file Are you homeless or worried that you might be in the future? (Adult - for ages 18 years and over): Not on file Are you (or your family) homeless or worried that you might be in the future? (Household - for ages0-17 years): Not on file PMH: Past Medical History: Diagnosis Date Asthma, cold induced B12 deficiency 09/01/2016 Calculus of kidney 2008 Chronic left-sided low back pain with left-sided sciatica 02/28/2017 Dyslipidemia, goal LDL below 100 Hypothyroidism 04/27/2015 Hypothyroidism due to acquired atrophy of thyroid 09/11/2019 Pain of both sacroiliac joints 02/28/2017 RLS (restless legs syndrome) 03/11/2020 Past Surgical History: Procedure Laterality Date CYSTOSCOPY 09-09-2009 stent removed CYSTOSCOPY/INSERTION OF STENT 07/02/2009 CYSTOSCOPY/INSERTION OF STENT 08/25/2009 CYSTOURETERO W/LITHOTRIPSY 07/02/2009 DENTAL SURGERY PROCEDURE NEC 1968 FRAGMENT KIDNEY STONE BY SHOCK WAVE 09-03-2009 ESWL (Extracorporeal Shock Wave Lithotripsy) FRAGMENT KIDNEY STONE BY SHOCK WAVE 09-03-2009 ESWL (Extracorporeal Shock Wave Lithotripsy) FRAGMENT KIDNEY STONE BY SHOCK WAVE 09-03-2009 INFORMATION 10/17/04 LEFT cataract extraction with lens implantation LAPAROSCOPY; CHOLECYSTECTOMY 2014 Cholecystectomy, Laproscopic REMOVE CATARACT, INSERT LENS PROSTH Left 01/29/2024 LEFT EXTRACAPSULAR CATARACT REMOVAL WITH INTRAOCULAR LENS performed by Dany Thomas MD at [facility] Current Outpatient Medications Medication Sig Dispense Refill B-12 1000 MCG Oral Tablet Take 1,000 mcg by mouth every evening. 100 Tablet 3 Levothyroxine Sodium 50 MCG Oral Tablet (Levoxyl) Take 1 Tablet by mouth daily first thing in the morning. 100 Tablet 3 Sertraline HCl 50 MG Oral Tablet (Zoloft) Take 1 Tablet by mouth in the morning. 100 Tablet 3 Simvastatin 20 MG Oral Tablet (Zocor) Take 1 Tablet by mouth every evening. 100 Tablet 3 Multiple Vitamins-Minerals (ONE DAILY MENS 50+ MULTIVIT) TABS No current facility-administered medications for this visit. Review of patient's allergies indicates: No Known Allergies Most Recent Immunizations Administered Date(s) Administered COVID-19 mRNA, LNP-s, No Preserve, 2-Dose Series ([employer]) 04/29/2021 Covid-19, Mrna, Lnp-s, Pf, Bivalent, 30 Mcg, IM, 12 yrs and above (Pfizer) 06/12/2022 Pneumococcal Conjugate Vacc, 13 Valent (Prevnar) 05/23/2017 Pneumococcal Polysaccharide PPV23 (Pneumovax) 08/12/2018 RSV Vac., Bivalent, Perfusion F, Pf,0.5 Ml (Abrysvo) 10/15/2023 Seasonal Influenza Vac., MDV, IM, 0.5 mL (Fluzone) 03/17/2015 Seasonal Influenza, High Dose, Trivalent, PF, IM (Fluzone HD) 04/16/2024 Seasonal Influenza, PF, 6 M & above, IM , (FluLaval or Fluzone) 04/05/2020 Seasonal Influenza, Quadrivalent Hd (Fluzone Hd) 03/27/2023 Seasonal Influenza, Quadrivalent, No Preserve, IM 04/05/2016 Seasonal Influenza, Trivalent, Adjuvanted, 65+ YRS, PF, (Fluad) 04/16/2019 TDAP (age 10 and older)(Boostrix) 06/13/2017 Vitamin B12 Injection 09/25/2016 Review of Systems: Physical Exam BP 108/64 | Pulse 84 Comment: irregular | Temp 36.6 C (97.9 F) (Tympanic) | Resp 18 | Ht 1.8 m (5' 10.87") | Wt 91.6 kg (202 lb) | SpO2 98% | BMI 28.28 kg/m | BSA 2.14 m Physical Exam Constitutional: Appearance: Normal appearance. HENT: Head: Normocephalic. Cardiovascular: Rate and Rhythm: Normal rate and regular rhythm. Pulmonary: Effort: Pulmonary effort is normal. Breath sounds: Normal breath sounds. No rhonchi. Musculoskeletal: Cervical back: Neck supple. Right lower leg: Swelling present. 4+ Edema present. Left lower leg: Swelling present. 3+ Edema present. Comments: +erythema in right leg, scab over posterior right calf. Denies tenderness with dorsiflexion Skin: General: Skin is warm. Neurological: Mental Status: He is alert and oriented to person, place, and time. Psychiatric: Mood and Affect: Mood normal. Assessment and Plan 1. Bilateral leg edema Worse R leg Discussed benefits, risks, side effects, alternatives Check BMP today and recheck in 1 week Monitor home BP - BASIC METABOLIC PANEL; Future - Furosemide 20 MG Oral Tablet (Lasix); Take 1 Tablet by mouth in the morning. Dispense: 30 Tablet;Refill: 0 - Potassium Chloride Amy ER 20 MEQ Oral Tablet Extended Release; Take 1 Tablet by mouth in the morning. Dispense: 30 Tablet; Refill: 0 - BASIC METABOLIC PANEL; Future 2. Need for prophylactic vaccination and inoculation against influenza - INFLUENZA VAC., TRIVALENT, HD, PF, 65 AND ABOVE, 0.5 ML IM (FLUZONE HD) 3. Pericardial effusion F/u with cardiology Wrap-Up I have advised the patient to call our office with any worsening or new symptoms. I spent a total of 20-29 minutes (exact time 25 mins) on the date of service in preparation, delivery, and documentation of the care provided to Kleber Darden excluding any time spent in the performance of separately billed services. Lauren Gonzalez, MARIA LUZ, HUMAN RESOURCES COMPENSATION ANALYST [facility] * Ana Mullins LPN - 04/16/2024 11:08 AM EDT PRE - ADMINISTRATION DOCUMENTATION Are you experiencing any cold symptoms or fever? No Have you had Guillain-Phelps Syndrome (an illness that causes paralysis) within the last 6 weeks? No Have you had the flu shot in the past? YES Have you ever had a reaction to the flu shot? No Ana Mullins LPN, 04/16/2024 11:08 AM Immunization Administration Documentation Time Out Procedure Performed: Yes Patient Identified (Ask Name/Date of ): Yes Does the patient have a fever greater than 101 degrees today? No Patient allergic to latex? No VFC Stock: No Immunization(s) verified: Yes, Immunization Name: Flu, VIS Sheet(s) given: Yes Verified Side and Site: Yes Verified Shot(s) with Parent(s)/Patient: Yes documented in this encounter Nursing Notes * Ana Mullins LPN - 04/16/2024 10:59 AM EDT The patient has been properly identified by confirmation of name and date of . Chief Complaint Patient presents with Follow Up Pt here with son for follow up, c/o R leg pain, swelling and redness for the past month documented in this encounter Plan of Treatment Upcoming Encounters Date Type Department Care Team (Late st Contact Info) Description 04/28/2024 9:00 AM EDT Office Visit Cardiology, [facility] [address] [place] [address] Ludmila Jha CRNP [address] [place] [address] 05/07/2024 10:30 AM EDT Office Visit Orthopaedics [facility] [address] [place] [address] Lewis Almaraz DO [address] [place] [address] 10/16/2024 10:00 AM EDT Office Visit Family Practice [facility] [address] [address] Adán Fink MD [address] [place] [address] Health Maintenance Due Date Last Done Comments Zoster Vaccines (1 of 2) 1992 Adult Wellness Visit 08/11/2023 08/11/2022 COVID-19 Vaccine ( - season) 2024 06/12/2022, 04/29/2021, 09/14/2020 TSH 06/12/2024 [...] this encounter Medical Devices Implanted Type Area Supervisor [employer] Device Identifier Shelf Expiration Date Model / Serial / Lot Lens Li61ao 13.00mm 16.50 - [id number] - [id number] Implanted:Qty: 1 on 01/29/2024 by Dany Thomas MD at [facility] Left: Eye [employer]OMB 09/12/2028 [id number] / [id number] / [id number] documented as of this encounter Visit Diagnoses Diagnosis Bilateral leg edema- Primary Edema Need for prophylactic vaccination and inoculation against influenza Pericardial effusion Unspecified disease of pericardium documented in this encounter Advance Directives * [...] Power of Attor deanna? No Care Teams Insole Reinforcer Relationship Specialty Start Date End Date Adán Fink MD [address] [place] [address] PCP - General Family Medicine 08/31/16 documented as of this encounter
--- OUTSIDE RECORDS SUMMARY | 2024-04-30 06:10 | External Medical Summary | Summary of Care ---
Author Name Unknown Organization [facility] Address [address] [place] [address] Phone [phone] Care Team Providers Care Egg Breaker Name Role Phone Adán Fink MD Primary Care Provider + Reason for Visit * Reason Comments Edema Both legs Short of Breath Encounter Details Date Type Department Care Team (Late st Contact Info) Description 02/14/2024 2:40 PM EDT Office Visit Family [facility] [address] [place] [address] Lauren Gonzalez CRNP [address] [place] [address] Bilateral edema of lower extremity*; Pericardial effusion; RBBB (right bundle branch block); Mild intermittent asthma without complication Allergies No known active allergiesdocumented as of this encounter (statuses as of 02/14/2024) Medications Medication Sig Dispensed Refills Start Date [...] as of this encounter (statuses as of 02/14/2024) Active Problems Problem Noted Date Diagnosed Date [...] as of this encounter (statuses as of 02/14/2024) Resolved Problems Problem Noted Date Diagnosed Date [...] as of this encounter (statuses as of 02/14/2024) Immunizations Name Administration Dates Next Due COVID-19 mRNA, LNP-s, No Pre serve, 2-Dose Series ([employer]) 04/29/2021,09/14/2020 Covid-19, Mrna, Lnp-s, Pf, B ivalent, 30 Mcg, IM, 12 yrs and above ([employer]) 06/12/2022 Pneumococcal Conjugate Vacc, 13 Valent (Prevnar) 05/23/2017 Pneumococcal Polysaccharide PPV23 (Pneumovax) 08/12/2018 RSV Vac., Bivalent, Perfusio n F, Pf,0.5 Ml (Abrysvo) 10/15/2023 Seasonal Influenza, PF, 6 M & above, IM , (FluLaval or Fluzone) 04/05/2020,04/01/2018,04/12/2017 Seasonal Influenza, Quadriva lent Hd (Fluzone Hd) 03/27/2023,06/12/2022,03/31/2021 Seasonal Influenza, Quadriva lent, No Preserve, IM 04/05/2016 Seasonal Influenza, Split, I IV3, With Preserve, Inj 03/17/2015,04/06/2014,04/04/2013,04/09,04/27/2011,03/16/2009 Seasonal Influenza, Trivalen t, Adjuvanted, 65+ yrs 04/16/2019 TDAP (age 10 and older)(Boostrix) 06/13/2017 [...] Sign Reading Time Taken Comments Blood Pressure 116/66 02/14/2024 2:26 PM EDT Pulse 98 02/14/2024 2:26 PM EDT Temperature 36.4 C (97.6 F) 02/14/2024 2:26 PM ED T Respiratory Rate 24 02/14/2024 2:26 PM EDT Oxygen Saturation 99% 02/14/2024 2:26 PM EDT room air Inhaled Oxygen Concentration - - Weight 87.7 kg (193 lb 6.4 oz) 02/14/2024 2:26 P M EDT Height - - Body Mass Index 27.08 01/29/2024 11:37 AM EDT documented in this encounter Progress Notes * Lauren Gonzalez CRNP - 02/14/2024 2:44 PM EDT Images from the original note were not included. Acute Family Medicine Visit History of Present Illness Kleber Darden is a very pleasant 83 year old male with PMH listed below presenting with bilateral edema. Accompanied by daughter. Chronic bilateral edema, on and off few months. Pt monitors sodium, but not wearing compression socks. Echo showed stable small pericardial effusion. No fever, chills, chest pain, shortness of breath, headache, nausea, vomit, diarrhea, constipation or vision changes Social History Socioeconomic History Marital status: Spouse [...] Not Currently Partners: Female Comment: 2 childrenson [place], daughter in [place].1 granddaughter Other Topics [...] Stability Do you currently live in a fdc or have no steady place to sleep [...] performed by Dany Thomas MD at [facility] Current Outpatient Medications Medication Sig Dispense Refill [...] COVID-19 mRNA, LNP-s, No Preserve, 2-Dose Series ([employer]) 04/29/2021 Covid-19, Mrna, Lnp-s, Pf, Bivalent, 30 Mcg, IM, 12 yrs and above (Pfizer) 06/12/2022 Pneumococcal Conjugate Vacc, 13 Valent (Prevnar) 05/23/2017 Pneumococcal Polysaccharide PPV23 (Pneumovax) 08/12/2018 RSV Vac., Bivalent, Perfusion F, Pf,0.5 Ml (Abrysvo) 10/15/2023 Seasonal Influenza, PF, 6 M & above, IM , (FluLaval or Fluzone) 04/05/2020 Seasonal Influenza, Quadrivalent Hd (Fluzone Hd) 03/27/2023 Seasonal Influenza, Quadrivalent, No Preserve, IM 04/05/2016 Seasonal Influenza, Split, IIV3, With Preserve, Inj 03/17/2015 Seasonal Influenza, Trivalent, Adjuvanted, 65+ yrs 04/16/2019 TDAP (age 10 and older)(Boostrix) 06/13/2017 Vitamin B12 Injection 09/25/2016 Review of Systems: Physical Exam BP 116/66 (BP Site: Left Arm, BP Position: Sitting, BP Cuff Size: Regular) | Pulse 98 | Temp 36.4 C (97.6 F) (Tympanic) | Resp 24 | Wt 87.7 kg (193 lb 6.4 oz) | SpO2 99% Comment: room air | BMI 27.08 kg/m | BSA 2.09 m Physical Exam Constitutional: Appearance: Normal appearance. HENT: Head: Normocephalic. Cardiovascular: Rate and Rhythm: Normal rate and regular rhythm. Pulmonary: Effort: Pulmonary effort is normal. Breath sounds: Normal breath sounds. No decreased breath sounds or rales. Musculoskeletal: Cervical back: Neck supple. Right lower leg: Edema present. Left lower leg: Edema present. Skin: General: Skin is warm. Neurological: Mental Status: He is alert and oriented to person, place, and time. Psychiatric: Mood and Affect: Mood normal. Assessment and Plan 1. Bilateral edema of lower extremity Reinforce compression stocking, elevation 2. Pericardial effusion Stable, f/u cardiology 3. RBBB (right bundle branch block) 4. Mild intermittent asthma without complication Wrap-Up I have advised the patient to call our office with any worsening or new symptoms. I spent a total of 30-39 minutes (exact time 30 mins) on the date of service in preparation, delivery, and documentation of the care provided to Kleber Darden excluding any time spent in the performance of separately billed services. Lauren Gonzalez, MARIA LUZ, MAX [facility] documented in this encounter Nursing Notes * Stephen Gauthier RN - 02/14/2024 2:30 PM EDT Chief Complaint Patient presents with Edema Both legs Short of Breath documented in this encounter Plan of Treatment Upcoming Encounters Date Type Department Care Team (Late st Contact Info) Description 04/16/2024 11:00 AM EDT Office Visit [facility] [address] [place] [address] Lauren Gonzalez CRNP [address] [place] [address] 04/28/2024 9:00 AM EDT Office Visit Cardiology, [facility] [address] [place] [address] Ludmila Jha CRNP [address] [place] [address] 05/07/2024 10:30 AM EDT Office Visit Orthopaedics [facility] [address] [place] [address] Lewis Almaraz DO [address] [place] [address] 10/16/2024 10:00 AM EDT Office Visit [facility] [address] [place] [address] Adán Fink MD [address] [place] [address] Health Maintenance Due Date Last Done Comments Zoster Vaccines (1 of 2) 1992 COVID-19 Vaccine ( season) 2023 06/12/2022, 04/29/2021, 09/14/2020 Influenza Vaccine (FLU shot) (#1) 2024 03/27/2023, 06/12/2022, 03/31/2021, Additional history exists TSH 06/12/2024 06/12/2023, 03/10/2022, 10/05/2021, Additional history exists Depression Monitoring 10/14/2024 10/15/2023 DTaP,Tdap,and Td Vaccines (2 - Td or Tdap) 06/13/2027 [...] this encounter Medical Devices Implanted Type Area Editor Producer Device Identifier Shelf Expiration Date Model / Serial / Lot Lens Li61ao 13.00mm 16.50 - [id number] - [id number] Implanted:Qty: 1 on 01/29/2024 by Dany Thomas MD at [facility] Left: Eye [employer] 09/12/2028 [id number] / [id number] / [id number] documented as of this encounter Visit Diagnoses Diagnosis Bilateral edema of lower extremity- Primary Edema Pericardial effusion Unspecified disease of pericardium RBBB (right bundle branch block) Right bundle branch block Mild intermittent asthma without complication Unspecified asthma documented in this encounter Advance Directives * [...] Power of Attor deanna? No Care Teams Egg Breaker Relationship Specialty Start Date End Date Adán Fink MD [address] [facility] [place] [address] PCP - General Family Medicine 08/31/16 documented as of this encounter"
--- OUTSIDE RECORDS SUMMARY | 2024-04-30 06:10 | External Medical Summary ---
Author Name Unknown Address Unknown Organization [id number]:[facility] [facility] [place] [address] [facility] [address] Laboratory Report Ordering Provider Test Date Status IRINA DAVILA 04/16/2024 11:53:32 Final Observation Date Value Abnormality Reference (Units ) Status WBC, Total 04/16/2024 11:53:32 6.48 4.00-10.8 0 (K/uL) Final RBC 04/16/2024 11:53:32 4.84 4.50-5.25 (M/uL) Final Hemoglobin 04/16/2024 11:53:32 15.1 14.0-16.8 (g/dL) Final Anemia reflex testing trigge rs on a HGB < 12.0 for Females and HGB < 13.0 for Males in accordance with the WHO Anemia Guidelines
Anemia reflex testing triggers on a HGB < 12.0 for Females and HGB < 13.0 for Males in accordance with the WHO Anemia Guidelines HCT 04/16/2024 11:53:32 46.8 40.0-48.4 (%) Final MCV 04/16/2024 11:53:32 96.7 82.0-99.5 (fL) Final MCH 04/16/2024 11:53:32 31.2 27.0-34.0 (pg) Final MCHC 04/16/2024 11:53:32 32.3 32.0-36.0 (g/dL) Final RDW 04/16/2024 11:53:32 12.9 11.5-15.5 (%) Final Platelets 04/16/2024 11:53:32 196 140-400 (K /uL) Final MPV 04/16/2024 11:53:32 12.0 6.6-11.1 ( fL) Final Nucleated erythrocytes/100 leukocytes [Ratio] in Blood by Automated count 04/16/2024 11:53:32 0 <=0 (/100 WBCs) Fi nal Performing Location [facility] [place] [address] [facility] [address]
--- OUTSIDE RECORDS SUMMARY | 2024-04-30 06:10 | External Medical Summary | Summary of Care ---
Author Name Unknown Organization [facility] Address [address] [facility] [place] [address] Phone [phone] Care Team Providers Care Middleware Developer Name Role Phone Adán Fink MD Primary Care Provider + Reason for Visit * Reason Comments Follow Up Bilateral knee Encounter Details Date Type Department Care Team (Latest Contact Info) Description 02/04/2024 10:00 AM EDT Office Visit Orthopaedics [facility] [address] [place] [address] Lewis Almaraz, [address] [place] [address] Primary osteoarthritis of both knees* Allergies No known active allergiesdocumented as of this encounter (statuses as of 02/04/2024) Medications Medication Sig Dispensed Refills Start Date [...] every evening. 100 Tablet 3 10/15/2023 Active Hospital, Clinic, or Other Facility Administered Medication Ordered Dose Route Frequency Start Date End Date Status lidocaine 1% 1 mL - triamcinolone acetonide 40 mg/mL 1 mL inj 2 mLIndications:Primary osteoarthritis of both knees 2 mL IJ ONCE 02/04/2024 02/04/2024 Ended lidocaine 1% 1 mL - triamcinolone acetonide 40 mg/mL 1 mL inj 2 mLIndications:Primary osteoarthritis of both knees 2 mL IJ ONCE 02/04/2024 02/04/2024 Ended documented as of this encounter (statuses as of 02/04/2024) Active Problems Problem Noted Date Diagnosed Date [...] as of this encounter (statuses as of 02/04/2024) Resolved Problems Problem Noted Date Diagnosed Date [...] as of this encounter (statuses as of 02/04/2024) Immunizations Name Administration Dates Next Due COVID-19 mRNA, LNP-s, No Pre serve, 2-Dose Series ([employer]) 04/29/2021,09/14/2020 Covid-19, Mrna, Lnp-s, Pf, B ivalent, [...] on file documented as of this encounter Progress Notes * Lewis Almaraz, DO - 02/04/2024 10:00 AM EDT Kleber Darden [id number] Kleber Darden is a 83 year old male who presents for follow up for bilateral knee pain to Sports Medicine. 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 100 Tablet 3 Sertraline HCl 50 MG Oral Tablet (Zoloft) Take 1 Tablet by mouth in the morning. 100 Tablet 3 B-12 1000 MCG Oral Tablet Take 1,000 mcg by mouth every evening. 100 Tablet 3 Simvastatin 20 MG Oral Tablet (Zocor) Take 1 Tablet by mouth every evening. 100 Tablet 3 No current facility-administered medications for this visit. Physical Exam Gait and Station: slightly antalgic Knee exam, bilateral Effusion: negative on Bilateral Palpation: tenderness to palpation at medial joint line on the Bilateral Assessment and Plan: see procedure note, f/u 3 months Primary osteoarthritis of both knees (Primary) - lidocaine 1% 1 mL - triamcinolone acetonide 40 mg/mL 1 mL inj 2 mL - lidocaine 1% 1 mL - triamcinolone acetonide 40 mg/mL 1 mL inj 2 mL - INJECT MAJOR JX/BURSA W/O US GUID Lewis Almaraz DO Primary Care Sports Medicine Orthopaedics [facility] [address] [facility] [address] This chart was completed in part utilizing [employer] Speech Voice Recognition Software. Grammatical errors, random word insertions, pronoun errors, and incomplete sentences are an occasional consequence of this system due to software limitations, ambient noise, and hardware issues. Any formal questions or concerns about the content, text, or information contained within the body of this dictation should be directly addressed to the provider for clarification. Procedure note (knee injection), bilateral : Time out: Prior to injection, a time out was called to confirm the administration of appropriate medicine, patient name, procedure and confirm to the best of our ability and knowledge the presence of any necessary risks and benefits. Patient verbalizes understanding. proper approach defined Sterile techinique applied. Skin sterilized with alcohol swab. Knee injected using 1.5 inch, 22 gauge needle. Injected with lidocaine 1% 1 mL - triamcinolone acetonide 40 mg/mL 1 mL inj 2 mL Patient tolerated procedure with no significant bleeding or adverse reaction. Patient instructed to call or return to clinic for fever or warmth and redness at injection site for potential infection. Patient also advised as to potential for steroid flare reaction including increased pain and redness at injection site which should be treated with ice and resolve within 24 hours. Lewis Almaraz DO documented in this encounter Nursing Notes * Cassi Hamm MED ASSIST - 02/04/2024 9:54 AM EDT Repeat bilateral knee inj documented in this encounter Plan of Treatment Upcoming Encounters Date Type Department Care Team (Late st Contact Info) Description 04/16/2024 11:00 AM EDT Office Visit Family Practice [facility] [address] [facility] [place] [address] Lauren Gonzalez CRNP [address] [facility] [place] [address] 04/28/2024 9:00 AM EDT Office Visit Cardiology, [facility] [address] [place] [address] Ludmila Jha CRNP [address] [place] [address] 05/07/2024 10:30 AM EDT Office Visit Orthopaedics [facility] [address] [place] [address] Lewis Almaraz DO [address] [place] [address] 10/16/2024 10:00 AM EDT Office Visit Family Practice [facility] [address] [place] [address] Adán Fink MD [address] [place] [address] Scheduled Orders Name Type Priority Associated Diagnoses Orde r Schedule INJECT MAJOR JX/BURSA W/O US GUIDE Procedures Routine Primary osteoarthritis of both knees Ordered: 02/04/2024 Health Maintenance Due Date Last Done Comments [...] this encounter Medical Devices Implanted Type Area Chief Hospital Administrator Device Identifier Shelf Expiration Date Model / Serial / Lot Lens Li61ao 13.00mm 16.50 - [id number] - [id number] Implanted:Qty: 1 on 01/29/2024 by Dany Thomas MD at [facility] Left: Eye [employer] 09/12/2028 [id number] / [id number] / [id number] documented as of this encounter Visit Diagnoses Diagnosis Primary osteoarthritis of both knees- Primary Primary localized osteoarthrosis, lower leg documented in this encounter Administered Medications Inactive Administered Medications - up to 3 most recent administrations Medication Order MAR Action Action Date Dose Rate Site lidocaine 1% 1 mL - triamcinolone acetonide 40 mg/mL 1 mL inj 2 mL 2 mL, Injection, ONCE, On Sun02/04/24 at 1030, For 1 dose, Lidocaine 1% 1mL Triamcinolone Acetonide 40 mg/mL 1 mL (Final concentration = 20 mg/mL) REFRIGERATE and SHAKE WELL Given 02/04/2024 9:59 AM EDT 2 mL Knee Right lidocaine 1% 1 mL - triamcinolone acetonide 40 mg/mL 1 mL inj 2 mL 2 mL, Injection, ONCE, On Sun02/04/24 at 1030, For 1 dose, Lidocaine 1% 1mL Triamcinolone Acetonide 40 mg/mL 1 mL (Final concentration = 20 mg/mL) REFRIGERATE and SHAKE WELL Given 02/04/2024 9:59 AM EDT 2 mL Knee Left documented in this encounter Advance Directives * [...] Power of Attor deanna? No Care Teams Middleware Developer Relationship Specialty Start Date End Date Adán Fink MD [address] [place] [address] PCP - General Family Medicine 08/31/16 documented as of this encounter
--- OUTSIDE RECORDS SUMMARY | 2024-04-30 06:11 | External Medical Summary | Summary of Care ---
Author Name Unknown Organization [facility] Address [address] [facility] [place] [address] Phone [phone] Care Team Providers Care Project Engineer Chemicals Name Role Phone Adán Fink MD Primary Care Provider + Reason for Visit * Reason Comments Follow Up Bilateral knee Encounter Details Date Type Department Care Team (Latest Contact Info) Description 02/04/2024 10:00 AM EDT Office Visit Orthopaedics [facility] [address] [place] [address] Lewis Almaraz, [address] [place] [address] Primary osteoarthritis of both knees* Allergies No [...] mRNA, LNP-s, No Pre serve, 2-Dose Series ([facility]) 04/29/2021,09/14/2020 Covid-19, Mrna, Lnp-s, Pf, B ivalent, [...] - 02/04/2024 10:00 AM EDT Kleber Darden [id number] Kleber Darden is a 83 year old [...] Almaraz DO Primary Care Sports Medicine Orthopaedics [facility] [address] [facility] [address] This chart was completed in part utilizing [employer] Speech Voice Recognition Software. Grammatical errors, random [...] 11:00 AM EDT Office Visit Family Practice [facility] [address] [facility] [place] [address] Lauren Gonzalez CRNP [address] [facility] [place] [address] 04/28/2024 9:00 AM EDT Office Visit Cardiology, [facility] [address] [place] [address] Ludmila Jha CRNP [address] [place] [address] 05/07/2024 10:30 AM EDT Office Visit Orthopaedics [facility] [address] [place] [address] Lewis Almaraz DO [address] [place] [address] 10/16/2024 10:00 AM EDT Office Visit Family Practice [facility] [address] [place] [address] Adán Fink MD [address] [place] [address] Scheduled Orders Name Type Priority Associated Diagnoses [...] this encounter Medical Devices Implanted Type Area Computer Technical Support Specialist Device Identifier Shelf Expiration Date Model / Serial / Lot Lens Li61ao 13.00mm 16.50 - [id number] - [id number] Implanted:Qty: 1 on 01/29/2024 by Dany Thomas MD at [facility] Left: Eye [employer] 09/12/2028 [id number] / [id number] / [id number] documented as of this encounter Visit Diagnoses [...] Power of Attor deanna? No Care Teams Project Engineer Chemicals Relationship Specialty Start Date End Date Adán Fink MD [address] [place] [address] PCP - General Family Medicine 08/31/16 documented as of this encounter
--- OUTSIDE RECORDS SUMMARY | 2024-04-30 06:11 | External Medical Summary | Summary of Care ---
Author Name Unknown Organization [facility] Address [address] [place] [address] Phone [phone] Care Team Providers Care Garment Worker Name Role Phone Adán Fink MD Primary Care Provider + Reason for Visit * Auth/Cert Specialty Diagnoses / Procedures Referred By Dianne austin Referred To Contact Diagnoses Combined forms of age-related cataract of left eye Combined forms of age-related cataract of left eye [H25.812] Procedures REMOVE CATARACT, INSERT LENS PROSTH LEFT EXTRACAPSULAR CATARACT REMOVAL WITH INTRAOCULAR LENS Dany Thomas MD [address] [place] [id number] [address] [place] [address] Referral ID Status Reason Start Date Expiration Date Visits Re quested Visits Authorized [id number] Encounter Details Date Type Department Care Team (Latest Contact Info) Description 01/29/2024 10:34 AM EDT - 01/29/2024 1:12 PM EDT Hospital Encounter OR [facility], Operating Room [facility] [address] [place] [address] Dany Thomas MD [address] [place] [id number] Discharge Disposition: Home - Self Care Allergies No known active allergiesdocumented as of this encounter (statuses as of 01/30/2024) Medications Medication Sig Dispensed Refills Start Date [...] as of this encounter (statuses as of 01/30/2024) Active Problems Problem Noted Date Diagnosed Date [...] as of this encounter (statuses as of 01/30/2024) Resolved Problems Problem Noted Date Diagnosed Date [...] as of this encounter (statuses as of 01/30/2024) Immunizations Name Administration Dates Next Due COVID-19 mRNA, LNP-s, No Pre serve, 2-Dose Series (Ignyta) 04/29/2021,09/14/2020 Covid-19, Mrna, Lnp-s, Pf, B ivalent, [...] Sign Reading Time Taken Comments Blood Pressure 112/67 01/29/2024 1:03 PM EDT Pulse 71 01/29/2024 1:03 PM EDT Temperature 36.4 C (97.5 F) 01/29/2024 1:03 PM ED T Respiratory Rate 16 01/29/2024 1:03 PM EDT Oxygen Saturation 94% 01/29/2024 1:03 PM EDT Inhaled Oxygen Concentration - - Weight 90 kg (198 lb 6.6 oz) 01/29/2024 11:37 AM EDT Height 180 cm (5' 10.87") 01/29/2024 11:37 AM ED T Body Mass Index 27.78 01/29/2024 11:37 AM EDT documented in this encounter Discharge Instructions * Discharge Instr - AVS* Dany Thomas MD - 01/15/2024 8:52 AM EDT Discharge Date: 01/29/24 You may call Doctor Martha at during business hours and for after-hours emergencies. Your attending physician at the time of your discharge was: Dany Thomas MD The information below provides you with the instructions and the list of medications you need to betaking following discharge from the hospital. If you have any questions, please ask before leaving.Please carry this letter with you when you see your doctor in the clinic. Diet: Normal diet Activity: No heavy lifting, pushing, pulling (anything over 10 lbs.), no bending at the waist or straining for 1 week. Driving: Do not drive for 24 hours after surgery. Date you may return to work or school: N/A Follow Up - Return appointment(s): 01/30/24 @9:[address] Robert See your medical transcription in 1day(s). SPECIAL INSTRUCTIONS Remove eye patch and begin eye drops @ [facility] for healing and infection prevention. Duration PGB- 1 drop 4 times a day for today. X X X X Day of surgery. 8 am (Breakfast) PGB- 1 drop once a day for 4 weeks. X 4 Weeks 1. Use your eye drops 4 times on the afternoon and evening after your surgery. 2. DO NOT RUB OR PUT PRESSURE ON THE EYE for 4 weeks after surgery. 3. Please keep your surgical eye closed on the ride home and then at home for a total of 1-2 hours after surgery. 4. You may sit, walk, watch TV, read, and perform routine activities. 5. NO exercise for 2 weeks after surgery. It is OK to walk. 6. DO NOT go underwater for 2 weeks after surgery, e.g. no swimming or hot-tubs. 7. It is OK to shower, wash your face, shave, shampoo your hair the day AFTER Surgery (a few drops of water are OK). 8. Continue warm compresses for 5 minutes, 2 times per day. 9. Sleep with the shield taped over your eyes for 2 weeks after surgery. 10. NO eye make-up for 2 weeks after surgery. 11. DO NOT make any eye drop changes to your other eye. 12. Dr. Thomas suggests that all patients remain in the area for a minimum of the one week following surgery if traveling within the [place]. Patients traveling internationally should wait 4 weeks. 13. You may return to work soon after surgery; please discuss this with Dr. Thomas. 14. You can expect the following after surgery during the first 4-6 weeks. Itchiness/scratchiness around the eye. Redness in the white of the eye. Double vision/ Fluctuation in vision. Droopiness of the eyelid. 15. Your vision should gradually improve in days and weeks after surgery. If your vision is gettingworse (not better), or your eye more red, or you are having increasing pain, or you are having new floaters or flashing lights, CALL US IMMEDIATELY. IF YOU HAVE ANY PROBLEMS, QUESTIONS OR CONCERNS, DO NOT HESITATE TO CALL US AT [phone] AT ANY TIME IDany MD personally performed the services described in this documentation. All medical record entries made by the scribe were at my direction and in my presence. I have reviewed the chart and agree that the record reflects my personal performance and is accurate and complete. Dany marie MD. 01/29/2024. 12:38 PM. 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 Discharge instructions were given to the patient. Note has been documented by Evelyne Soni on 01/29/2024 documented in this encounter H&P Notes * Dany Thomas MD - 01/29/2024 7:37 AM EDT Images from the original note were not included. Office Visit 01/05/2024 Family Practice [facility] Shayna Macedo DO Family Medicine Preop examination Dx Physical-Exam ; Referred by Dany Thomas MD Reason for Visit Progress Notes Shayna Macedo DO (Physician) Family Medicine Expand All Collapse All Kleber Darden : 1940 Chief Complaint: Patient is sent for pre-operative medical clearance at the request of Dr. Thomas. Planned Surgery: L cataract Date: 01/29/24 Planned anesthesia: unk HPI: 83 year old male preop. 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 Allergies Review of patient's allergies indicates: No Known Allergies Social History Socioeconomic History Marital status: Spouse [...] Stability Do you currently live in a half-way or have no steady place to sleep [...] - for ages0-17 years): Not on file Family History Family History Problem Relation Name Age of Onset Heart Disorder Mother [place] age 68 all siblings , no other CA. Other (Other) Father age 32 horse accident Heart Disorder Sister [place] age 58 fatal Cancer Sister lung CA- non smoker Heart Disorder Brother [place] age 62 Review Of Systems Gen: Good health - no unexplained weight loss, fatigue or fever. Skin: Denies current skin lesions or rash Eyes: Denies ocular problems Ears/Nose/Throat:No dental problems or dysphagia. No recent coryza or sore throat. Respiratory: Denies cough, SOB or h/o asthma. Cardiovascular: No h/o CAD. Denies chest pain, CAUSEY, orthopnea, edema or palpitations. Gastrointestinal: Denies h/o PUD, GERD or significant dyspeptic symptoms. Genitourinary: Denies any urinary tract problems Musculoskeletal:Denies any significant joint or spinal problems. Neurologic: No h/o seizures, syncope, or vertigo. Psychiatric: Denies h/o psychiatric illness. Hematologic/Lymphatic/Immunologic: Denies h/o significant anemia, bleeding disorder, or malignancy. Endocrine:Denies h/o diabetes, thyroid disorder, or adrenal dysfunction. He denies significant use of steroid medication. BP 112/64 | Pulse 82 | Temp 35.7 C (96.2 F) (Tympanic) | Resp 18 | Ht 1.805 m (5' 11.06") | Wt 90.4 kg (199 lb 3.2 oz) | BMI 27.73 kg/m | BSA 2.13 m PHYSICAL EXAMINATION: The patient is a well developed, well nourished male who is alert, oriented, cooperative with the examination. HEENT: Normocephalic, atraumatic. EOMI. JOSEMANUEL. Conjunctivae pink. Sclerae white. Tympanic membranes kelly and non-bulging bilaterally. No cerumen impaction. Nose without discharge. Buccal mucosa moist without lesion. Dentures NECK: Supple. No lymphadenopathy, no jugular venous distention, no carotid bruits, no thyroid enlargement. LUNGS: Clear to auscultation. HEART: Regular rate and rhythm. S1 and S2 are normal. No murmurs, gallops or rubs appreciated. ABDOMEN: Normal active bowel sounds, non-distended, soft, non-tender. No organomegaly or masses. SPINE: FROM w/o pain, no deformities or tenderness. EXTREMITIES: FROM all joints. No clubbing, cyanosis, or edema. Peripheral pulses are intact. NEUROLOGICAL: AAOx3, CN II-XII intact, no focal deficits, cerebellar signs are negative. SKIN: no significant lesions or rashes. PRE-OPERATIVE TESTS:na ECG: LABS: PRE-OPERATIVE CLEARANCE DISCUSSION: There is no medical contraindication for the proposed surgery and anesthesia. Concerns/Precautions: none Shayna Macedo, DO Other Notes All notes Nursing Note from Na Rice, MED ASSIST Instructions Return if symptoms worsen or fail to improve. Additional Documentation Vitals: BP 112/64 Pulse 82 Temp 35.7 C (96.2 F) (Tympanic) Resp 18 Ht 1.805 m (5' 11.06") Wt 90.4 kg (199 lb 3.2 oz) BMI 27.73 kg/m BSA 2.13 m Flowsheets: Nurse Rooming Tool Encounter Info: Billing Info, History, Allergies, Detailed Report, Questionnaires Patient Handouts No notes of this type exist for this encounter. Orders Placed None Medication Changes None Medication List Visit Diagnoses Preop examination Problem List Note has been documented by Evelyne Soni on 01/29/2024 * Dany Thomas MD - 01/29/2024 7:37 AM EDT HISTORY & PHYSICAL INTERVAL NOTE [facility] [place] [address] [address] [address] History and Physical Update: Name: Kleber Darden Location: Room/bed info not found Date: 01/29/2024 Time: 7:37 AM DATE OF HISTORY AND PHYSICAL: 01/05/24 BP: 132 mmHg/67 mmHg (01/29/241136) Pulse: 77 (01/29/241136) Resp: 16 (01/29/241136) Temp: 36.06 C (01/29/241136) Temp Summary: Temp Min: 36.1 C (96.9 F) Max: 36.1 C (96.9 F) SpO2: 98 % (01/29/241136) O2 flow rate: Supplemental O2 Delivery: Room Air, None (01/29/241136) Does patient take a beta rachelle? No Did patient stop anticoagulants? No Heart Exam: regular rate and rhythm Lung Exam: clear to auscultation bilaterally Other Pertinent Physical Exam: none I have reviewed the H&P previously performed and examined the patient today. There are no new findings noted. documented in this encounter Nursing Notes * Roge Gao RN - 01/29/2024 12:49 PM EDT Patient transferred to pacu 2 status post left cataract removal and lens placement. No drainage noted. Patient awake. Denies pain and nausea. Respirations are even and unlabored on room air. Abdomen soft and non distended. Vital signs stable. * Pearl Woodard RN - 01/29/2024 11:27 AM EDT Surgical consent verified with patient. Patient agrees with listed procedure and verified signature. documented in this encounter OR Notes * OR Surgeon - Dany Thomas MD - 01/29/2024 12:45 PM EDT [facility] [address] [address] OPERATIVE REPORT Name: Kleber Darden Date: 01/29/2024 Time: 12:45 PM Location: [facility] Service: Ophthalmology Date of Operation: 01/29/2024 Pre-op Diagnosis: Visually significant combined cataract, left eye Post-op Diagnosis: Same Operative Procedure: Phacoemulsification with posterior chamber intraocular lens implantation left eye (23133 Standard Cataract) Surgeon: Dany Thomas MD Assistants: None Anesthesia: topical Implant/Graft: B&L: 16.5 [id number]; SN: [id number] Complications: none Drains: none Urine Output: minimal Specimen and Disposition: none Estimated Blood Loss: minimal Indications: The patient has noticed a decrease in their visual acuity now interfering with their activities of daily living. Slit-lamp examination revealed a visually significant lens opacity which appears to be a significant component of the decrease in visual acuity. After discussion of risks, benefits, and alternatives, the patient has elected to proceed with cataract extraction and lens implantation. Description of Procedure: The patient was brought to the operating room. A "time out" was called toconfirm the correct patient, the correct eye, the correct diagnosis, the correct procedure, relevant allergies and surgical considerations. The patient's eye was prepped and draped in the usual fashion. A wire lid speculum was placed between the lids. A paracentesis site was made, approximately three oclock hours away from the incision site. Intracameral lidocaine was injected into the anterior chamber. A clear cornea incision was then made with a keratome, and then viscoelastic was injected into the anterior chamber. A continuous curvilinearcapsulorrhexis was created using a cystitome and Utrata forcep. Hydrodissection was then performed using balanced salt solution. The nucleus was emulsified using the phacoemulsification handpiece. The cortex was removed using the automated irrigation aspiration unit. Viscoelastic was then used to deepen the capsular bag. A posterior chamber lens was then inserted into the capsular bag. The capsular bag was polished and then excess viscoelastic was aspirated using the irrigation aspiration unit. The wound was hydrated, tested and found to be water tight. Intracameral Moxifloxacin was given. Subtenon Triamcinolone was also placed in the inferior fornix. After the post-operative drops were given, including topical antibiotic, and steroid, a shield was placed. The patient tolerated the procedure well. Condition: The patient left the operating room in good condition. Disposition: In and Out Recovery Unit Attestation: I performed the procedure Note has been documented by Evelyne Soni on 01/29/2024 documented in this encounter Plan of Treatment Upcoming Encounters Date Type Department Care Team (Late st Contact Info) Description 02/04/2024 10:00 AM EDT Office Visit Orthopaedics [facility] [address] [place] [address] Lewis Almaraz DO [address] [place] [address] 04/16/2024 11:00 AM EDT Office Visit [facility] [address] [place] [address] Lauren Gonzalez CRNP [address] [place] [address] 04/28/2024 9:00 AM EDT Office Visit Cardiology, [facility] [address] [place] [address] Ludmila Jha CRNP [address] [place] [address] 10/16/2024 10:00 AM EDT Office Visit [facility] [address] [place] [address] Adán Fink MD [address] [place] [address] Health Maintenance Due Date Last Done Comments [...] this encounter Medical Devices Implanted Type Area Billet Driller Device Identifier Shelf Expiration Date Model / Serial / Lot Lens Li61ao 13.00mm 16.50 - [id number] - [id number] Implanted:Qty: 1 on 01/29/2024 by Dany Thomas MD at [facility] Left: Eye [employer] 09/12/2028 [id number] / [id number] / [id number] documented as of this encounter Administered Medications Inactive Administered Medications - up to 3 most recent administrations Medication Order MAR Action Action Date Dose Rate Site Diclofenac Sodium (Voltaren) 0.1 % ophthalmic solution 1 Drop 1 Drop, Left eye, Q5 MINUTES, First dose on Sun01/29/24 at 1145, Last dose on Sun01/29/24 at 1155, For 3 doses, PRE-OP: One drop to left eye every 5 minutes for 3 doses, Pre-Op Given 01/29/2024 11:45 AM EDT 1 Drop Given 01/29/2024 11:40 AM EDT 1 Drop Given 01/29/2024 11:33 AM EDT 1 Drop isolyte-S pH 7.4 infusion Intravenous, at 100 mL/hr, Plasma-LYTE 148, isolyte-S, and isolyte-S pH 7.4 are considered equivalent - including for MAR barcode scanning., CONTINUOUS, Starting on Sun01/29/24 at 1145, Until Sun01/29/24 at 1713, Pre-Op Continue from Pre-Op 01/29/2024 12:17 PM EDT 100 mL/hr New Bag 01/29/2024 11:40 AM EDT 100 mL/hr moxifloxacin (Vigamox) 0.5 % ophthalmic solution 1 Drop 1 Drop, Left eye, Q5 MINUTES, First dose on Sun01/29/24 at 1145, Last dose on Sun01/29/24 at 1155, For 3 doses, PRE-OP: One drop to left eye every 5 minutes for 3 doses, Pre-Op Given 01/29/2024 11:45 AM EDT 1 Drop Given 01/29/2024 11:40 AM EDT 1 Drop Given 01/29/2024 11:33 AM EDT 1 Drop proparacaine (Alcaine) 0.5 % ophthalmic solution 1 Drop 1 Drop, Left eye, ONCE, On Sun01/29/24 at 1145, For 1 dose, PRE-OP: 15 minutes prior to scheduled surgery time for 1 dose, Pre-Op Given 01/29/2024 11:3 3 AM EDT 1 Drop tropicamide 1%-cyclopentolate 1%-phenylephrine 2.5% ophthalmic solution 1 Drop 1 Drop, Left eye, Q5 MINUTES, First dose on Sun01/29/24 at 1145, Last dose on Sun01/29/24 at 1155, For 3 doses, Pre-Op Given 01/29/2024 11:45 AM EDT 1 Drop Given 01/29/2024 11:40 AM EDT 1 Drop Given 01/29/2024 11:33 AM EDT 1 Drop documented in this encounter Active and Recently Administered Medications Times are shown in EDT. Scheduled Medication Order 01/27/2024 01/28/2024 01/29/2024 Diclofenac Sodium (Voltaren) 0.1 % ophthalmic solution 1 Drop (COMPLETED) 1 Drop, Left eye, Q5 MINUTES, First dose on Sun01/29/24 at 1145, Last dose on Sun01/29/24 at 1155, For 3 doses, PRE-OP: One drop to left eye every 5 minutes for 3 doses, Pre-Op 1133 (Given - Provid er: Pearl Woodard RN)1140 (Given - Provider: Pearl Woodard RN)1145 (Given - Provider: Pearl Woodard RN) moxifloxacin (Vigamox) 0.5 % ophthalmic solution 1 Drop (COMPLETED) 1 Drop, Left eye, Q5 MINUTES, First dose on Sun01/29/24 at 1145, Last dose on Sun01/29/24 at 1155, For 3 doses, PRE-OP: One drop to left eye every 5 minutes for 3 doses, Pre-Op 1133 (Given - Provid er: Pearl Woodard RN)1140 (Given - Provider: Pearl Woodard RN)1145 (Given - Provider: Pearl Woodard RN) Povidone-Iodine (Betadine) 5 % 2 mL syringe ophthalmic solution 1 Drop 1 Drop, Left eye, ONCE, On Sun01/29/24 at 1145, For 1 dose, Pre-Op 1145 (Due) proparacaine (Alcaine) 0.5 % ophthalmic solution 1 Drop (COMPLETED) 1 Drop, Left eye, ONCE, On Sun01/29/24 at 1145, For 1 dose, PRE-OP: 15 minutes prior to scheduled surgery time for 1 dose, Pre-Op 1133 (Given - Provid er: Pearl Woodard RN) tropicamide 1%-cyclopentolate 1%-phenylephrine 2.5% ophthalmic solution 1 Drop (COMPLETED) 1 Drop, Left eye, Q5 MINUTES, First dose on Sun01/29/24 at 1145, Last dose on Sun01/29/24 at 1155, For 3 doses, Pre-Op 1133 (Given - Provid er: Pearl Woodard RN)1140 (Given - Provider: Pearl Woodard RN)1145 (Given - Provider: Pearl Woodard RN) Continuous Medication Order 01/27/2024 01/28/2024 01/29/2024 isolyte-S pH 7.4 infusion Intravenous, at 100 mL/hr, Plasma-LYTE 148, isolyte-S, and isolyte-S pH 7.4 are considered equivalent - including for MAR barcode scanning., CONTINUOUS, Starting on Sun01/29/24 at 1145, Until Sun01/29/24 at 1713, Pre-Op 1140 (New Bag - Prov ider: Pearl Woodard RN)1217 (Continue from Pre-Op - Provider: Christiano Shabazz CRNA)1235 (Anes Intra-Op Fluid - Provider: Christiano Shabazz CRNA) PRN Medication Order 01/27/2024 01/28/2024 01/29/2024 balanced salt solution (Bss) ophthalmic solution (CANCELED) ONCE PRN INTRA PROCEDURE, Starting on Sun01/29/24 at 1229, Until Sun01/29/24 at 1234, Intra-Op 1229 (Given - Provid er: Dany Thomas MD - Comment: qs) DUOVISC inj KIT (CANCELED) ONCE PRN INTRA PROCEDURE, Starting on Sun01/29/24 at 1229, Until Sun01/29/24 at 1234, Intra-Op 1229 (Given - Provid er: Dany Thomas MD - Comment: qs) hydroxypropyl methylcellulose (Ocucoat) 2 % intraocular inj (CANCELED) ONCE PRN INTRA PROCEDURE, Starting on Sun01/29/24 at 1229, Until Sun01/29/24 at 1234, Intra-Op 1229 (Given - Provid er: Dany Thomas MD - Comment: qs) Lidocaine 1 % (PF) inj (CANCELED) ONCE PRN INTRA PROCEDURE, Starting on Sun01/29/24 at 1230, Until Sun01/29/24 at 1234, Intra-Op 1230 (Given - Provid er: Dany Thomas MD - Comment: qs) Moxifloxacin intracameral inj (CANCELED) ONCE PRN INTRA PROCEDURE, Starting on Sun01/29/24 at 1230, Until Sun01/29/24 at 1234, Intra-Op 1230 (Given - Provid er: Dany Thomas MD - Comment: qs) Tetracaine (Pontocaine) 0.5 % ophthalmic solution (CANCELED) ONCE PRN INTRA PROCEDURE, Starting on Sun01/29/24 at 1230, Until Sun01/29/24 at 1234, Intra-Op 1230 (Given - Provid er: Dany Thomas MD - Comment: qs) Triamcinolone Acetonide (Triesence) ophth inj (CANCELED) ONCE PRN INTRA PROCEDURE, Starting on Sun01/29/24 at 1230, Until Sun01/29/24 at 1234, Intra-Op 1230 (Given - Provid er: Dany Thomas MD - Comment: qs) documented in this encounter Advance Directives * [...] Power of Attor deanna? No Care Teams Garment Worker Relationship Specialty Start Date End Date Adán Fink MD [address] [id number] PCP - General Family Medicine 08/31/16 documented as of this encounter
--- OUTSIDE RECORDS SUMMARY | 2024-04-30 06:11 | External Medical Summary | Summary of Care ---
Author Name Unknown Organization [facility] Address [address] [place] [address] Phone [phone] Care Team Providers Care Fitness Professional Name Role Phone Adán Fink MD Primary Care Provider + Reason for Visit * Reason Comments Knee Pain bilateral Encounter Details Date Type Department Care Team (Latest Contact Info) Description 11/05/2023 8:30 AM EDT Office Visit Orthopaedics [facility] [address] [facility] [address] Lewis Almaraz, [address] [facility] [address] Primary osteoarthritis of both knees* Allergies No known active allergiesdocumented as of this encounter (statuses as of 11/05/2023) Medications Medication Sig Dispensed Refills Start Date End Date Status Multiple Vitamins-Minerals (ONE DAILY MENS 50+ MULTIVIT) TABS 0 Active Levothyroxine Sodium 50 MCG Oral Tablet [...] of both knees 2 mL IJ ONCE 11/05/2023 11/05/2023 Active lidocaine 1% 1 mL - triamcinolone acetonide 40 mg/mL 1 mL inj 2 mLIndications:Primary osteoarthritis of both knees 2 mL IJ ONCE 11/05/2023 11/05/2023 Active documented as of this encounter (statuses as of 11/05/2023) Active Problems Problem Noted Date Diagnosed Date [...] as of this encounter (statuses as of 11/05/2023) Resolved Problems Problem Noted Date Diagnosed Date [...] as of this encounter (statuses as of 11/05/2023) Immunizations Name Administration Dates Next Due COVID-19 mRNA, LNP-s, No Pre serve, 2-Dose Series ([employer]) 04/29/2021,09/14/2020 Covid-19, Mrna, Lnp-s, Pf, B ivalent, [...] money to get more. Never true 10/15/2023 Sex and Gender Information Value Date Recorded Sex Assigned at Male 08/11/2022 12:50 PM EST Gender Identity Male 08/11/2022 12:50 PM EST Sexual Orientation Straight 08/11/2022 12 :50 PM EST Job Start Date Occupation Industry Not on file Not on file Not on file documented as of this encounter Progress Notes * Lewis Almaraz, - 11/05/2023 8:30 AM EDT Kleber Darden [id number] Kleber Darden is a 83 year old male who presents for follow up of right greater than left knee pain to Sports Medicine. Kleber Darden is here unaccompanied last injected 07/30/23 he got relief for approx 3 months and he would like injections today Past Medical History: Diagnosis Date Asthma, cold [...] Almaraz DO Primary Care Sports Medicine Orthopaedics [address] [address] Procedure note (knee injection), bilateral : Time [...] Notes * Cassi Hamm MED ASSIST - 11/05/2023 8:25 AM EDT Follow up Patient Follow up: Knee Side: Bilateral Date of last visit: 07/30/23 Improvement since last office visit: 0 percent. Prior Treatment: Injection Here for Test Results: No Goals for this appointment: inj documented in this encounter Plan of Treatment Upcoming Encounters Date Type Department Care Team (Late st Contact Info) Description 01/05/2024 9:00 AM EDT Office Visit [facility] [address] [place] [address] Alex Weinberg MD [address] [facility] [place] [address] 02/04/2024 10:00 AM EDT Office Visit Orthopaedics [facility] [address] [place] [address] Lewis Almaraz DO [address] [place] [address] 04/16/2024 11:00 AM EDT Office Visit [facility] [address] [place] [address] Lauren Gonzalez CRNP [address] [place] [address] 04/28/2024 9:00 AM EDT Office Visit Cardiology, [facility] [address] [place] [address] Ludmila Jha CRNP [address] [place] [address] 10/16/2024 10:00 AM EDT Office Visit [facility] [address] [place] [address] Adán Fink MD [address] [place] [address] Scheduled Orders Name Type Priority Associated Diagnoses Orde r Schedule INJECT MAJOR JX/BURSA W/O US GUIDE Procedures Routine Primary osteoarthritis of both knees Ordered: 11/05/2023 Health Maintenance Due Date Last Done Comments Zoster Vaccines (1 of 2) 1992 COVID-19 Vaccine (4 - 2022- season) 2023 06/12/2022, 04/29/2021, 09/14/2020 TSH 06/12/2024 06/12/2023, 09/14, 10/05/2021, Additional history exists DTaP,Tdap,and Td Vaccines (2 - Td or Tdap) 06/13/2027 06/13/2017 *SPIROMETRY ONCE FOR ASTHMA-ADULT Addressed 02/28/2017 (Declined) Overridden with th e intention of not completing the topic Pneumococcal Vaccine: 65+ Years Completed 08/12/2018, 05/23/2017 Influenza Vaccine (FLU shot) Completed 03/27/2023, 06/12/2022, 03/31/2021, Additional history exists GARDASIL-HPV IMMUNIZATION SERIES Aged Out No longer eligible based on patient's age to complete this topic Hepatitis B Aged Out No longer eligi ble based on patient's age to complete this topic MENINGOCOCCAL (MENACTRA/MENVEO) Aged Out No longer eligible based on patient's age to complete this topic documented as of this encounter Medical Devices Not on filedocumented as of this encounter Visit Diagnoses Diagnosis Primary osteoarthritis of both knees- Primary Primary localized osteoarthrosis, lower leg documented in this encounter Care Teams Fitness Professional Relationship Specialty Start Date End Date Adán Fink MD 132 [facility] [place] [address] PCP - General Family Medicine 08/31/16 documented as of this encounter
--- OUTSIDE RECORDS SUMMARY | 2024-04-30 06:11 | External Medical Summary | Summary of Care ---
Author Name Unknown Organization [facility] Address [address] [place] [address] Phone [phone] Care Team Providers Care Academic Coach Name Role Phone Adán Fink MD Primary Care Provider + Reason for Visit * Reason Comments Physical-Exam CPE for pre-op clear ance. Patient denies any other concerns. Encounter Details Date Type Department Care Team (Late st Contact Info) Description 01/05/2024 1:20 PM EDT Office Visit Family [facility] 132 [facility] [place] [address] Shayna Ramirez, 132 [facility] [place] [address] Preop examination* Allergies No known active allergiesdocumented as of this encounter (statuses as of 01/05/2024) Medications Medication Sig Dispensed Refills Start Date [...] as of this encounter (statuses as of 01/05/2024) Active Problems Problem Noted Date Diagnosed Date [...] as of this encounter (statuses as of 01/05/2024) Resolved Problems Problem Noted Date Diagnosed Date [...] as of this encounter (statuses as of 01/05/2024) Immunizations Name Administration Dates Next Due COVID-19 mRNA, LNP-s, No Pre serve, 2-Dose Series ([employer]) 04/29/2021,09/14/2020 Covid-19, Mrna, Lnp-s, Pf, B ivalent, 30 Mcg, IM, 12 yrs and above ([employer]) 06/12/2022 Pneumococcal Conjugate Vacc, 13 Valent (Prevnar) [...] Sign Reading Time Taken Comments Blood Pressure 112/64 01/05/2024 1:05 PM EDT Pulse 82 01/05/2024 1:05 PM EDT Temperature 35.7 C (96.2 F) 01/05/2024 1:05 PM ED T Respiratory Rate 18 01/05/2024 1:05 PM EDT Oxygen Saturation - - Inhaled Oxygen Concentration - - Weight 90.4 kg (199 lb 3.2 oz) 01/05/2024 1:05 P M EDT Height 180.5 cm (5' 11.06") 01/05/2024 1:05 PM E DT Body Mass Index 27.73 01/05/2024 1:05 PM EDT documented in this encounter Progress Notes * Shayna Ramirez, DO - 01/05/2024 1:07 PM EDT Kleber Darden : 1940 Chief Complaint: Patient is sent for pre-operative medical clearance at the request of Dr. Thomas. Planned Surgery: L cataract Date: 01/29/24 Planned anesthesia: unk HPI: 83 year old male preop. Lives near children No concerns today Cardio following No rashes Denies chest pain, sob Chronic LE edema Patient Active Problem List Diagnosis Routine medical [...] disorder without prior episode (HCC) Past Surgical History: Procedure Laterality Date CYSTOSCOPY [...] cataract extraction with lens implantation LAPAROSCOPY; CHOLECYSTECTOMY 2015 Cholecystectomy, Laproscopic Current Outpatient Medications Medication Sig Dispense Refill [...] Stability Do you currently live in a assisted or have no steady place to sleep [...] ages0-17 years): Not on file Family History Problem Relation Name Age of Onset Heart Disorder Mother PA age 68 all siblings , no other CA. Other (Other) Father age 32 horse accident Heart Disorder Sister PA age 58 fatal Cancer Sister lung CA- non smoker Heart Disorder Brother PA age 62 Review Of Systems Gen: Good [...] proposed surgery and anesthesia. Concerns/Precautions: none Shayna Ramirez DO documented in this encounter Nursing Notes * Na Rice, MED ASSIST - 01/05/2024 1:08 PM EDT Chief Complaint Patient presents with Physical-Exam CPE for pre-op clearance. Patient denies any other concerns. documented in this encounter Plan of Treatment Upcoming Encounters Date Type Department Care Team (Latest Contact Info) Description 01/29/2024 12:55 PM EDT Hospital Encounter OR [facility], Operating Room OSS [address] [place] [phone] Dany Thomas MD [address] [address] 01/29/2024 12:55 PM EDT - 01/29/2024 1:31 PM EDT Surgery OR [facility], Operating Room OSS [address] [place] [phone] Dany Thomas MD [address] [address] LEFT EXTRACAPSULAR CATARACT REMOVAL WITH INTRAOCULAR LENS 02/04/2024 10:00 AM EDT Office Visit Orthopaedics [facility] [address] [place] [address] Lewis Almaraz DO [address] [place] [address] 04/16/2024 11:00 AM EDT Office Visit Family Practice [facility] [address] [place] [address] Lauren Gonzalez CRNP [address] [place] [address] 04/28/2024 9:00 AM EDT Office Visit Cardiology, [facility] [address] [place] [address] Ludmila Jha CRNP [address] [place] [address] 10/16/2024 10:00 AM EDT Office Visit [facility] [address] [place] [address] Aádn Fink MD [address] [place] [address] Scheduled Procedures Name Priority Associated Diagnoses Date/Ti me EXTRACAPSULAR CATARACT REMOVAL WITH INTRAOCULAR LENS Combined forms of age-related cataract of left eye 01/29/2024 12:55 PM EDT Health Maintenance Due Date Last Done Comments Zoster Vaccines (1 of 2) 1992 COVID-19 Vaccine ( - 2022- season) 2023 06/12/2022, 04/29/2021, 09/14/2020 [...] as of this encounter Visit Diagnoses Diagnosis Preop examination- Primary Preoperative examination, unspecified Combined forms of age-related cataract of left eye Other and combined forms of senile cataract documented in this encounter Care Teams Academic Coach Relationship Specialty Start Date End Date Adán Fink MD [address] [place] [address] PCP - General Family Medicine 08/31/16 documented as of this encounter
--- OUTSIDE RECORDS SUMMARY | 2024-04-30 06:11 | External Medical Summary | Summary of Care ---
Author Name Unknown Organization [facility] Address [address] [place] [address] Phone [phone] Care Team Providers Care Dinkey Brakeman Name Role Phone Adán Fink MD Primary Care Provider + Reason for Visit * Reason Comments Knee Pain bilateral Encounter Details Date Type Department Care Team (Latest Contact Info) Description 11/05/2023 8:30 AM EDT Office Visit [facility]opaed[facility] [address] [facility] [address] Lewis Almaraz, [address] [facility] [address] Primary osteoarthritis of both knees* Allergies No [...] knees 2 mL IJ ONCE 11/05/2023 11/05/2023 Ended lidocaine 1% 1 mL - triamcinolone acetonide 40 mg/mL 1 mL inj 2 mLIndications:Primary osteoarthritis of both knees 2 mL IJ ONCE 11/05/2023 11/05/2023 Ended documented as of this encounter (statuses [...] mRNA, LNP-s, No Pre serve, 2-Dose Series ([employer]) 04/29/2021,09/14/2020 Covid-19, Mrna, Lnp-s, Pf, B ivalent, [...] Influenza, Split, I IV3, With Preserve, Inj 03/17/2015,04/06/2014,04/04/2013,04/09,04/27/2011,03/16/2009,06/07/2005 Seasonal Influenza, Trivalen t, Adjuvanted, 65+ yrs [...] - 11/05/2023 8:30 AM EDT Kleber Darden [id number] Kleber Darden is a 83 year old [...] Almaraz DO Primary Care Sports Medicine Orthopaedics [address] [address] Procedure note (knee injection), bilateral : Time [...] Description 01/05/2024 9:00 AM EDT Office Visit [facility] [address] [place] [address] Alex Weinberg MD [address] [place] [address] 02/04/2024 10:00 AM EDT Office Visit Orthopaedics [facility] [address] [place] [address] Lewis Almaraz DO [address] [place] [address] 04/16/2024 11:00 AM EDT Office Visit [facility] [address] [place] [address] Lauren Gonzalez CRNP [address] [place] [address] 04/28/2024 9:00 AM EDT Office Visit Cardiology, [facility] [address] [place] [address] Ludmila Jha CRNP [address] [place] [address] 10/16/2024 10:00 AM EDT Office Visit [facility] [address] [place] [address] Adán Fink MD [address] [place] [address] Scheduled Orders Name Type Priority Associated Diagnoses [...] 2 mL 2 mL, Injection, ONCE, On 11/05/23 at 0900, For 1 dose, Lidocaine 1% 1mL Triamcinolone Acetonide 40 mg/mL 1 mL (Final concentration = 20 mg/mL) REFRIGERATE and SHAKE WELL Given 11/05/2023 2:01 PM EDT 2 mL Knee Right lidocaine 1% 1 mL - triamcinolone acetonide 40 mg/mL 1 mL inj 2 mL 2 mL, Injection, ONCE, On 11/05/23 at 0900, For 1 dose, Lidocaine 1% 1mL Triamcinolone Acetonide 40 mg/mL 1 mL (Final concentration = 20 mg/mL) REFRIGERATE and SHAKE WELL Given 11/05/2023 2:01 PM EDT 2 mL Knee Left documented in this encounter Care Teams Dinkey Brakeman Relationship Specialty Start Date End Date Adán Fink MD [address] [place] [address] PCP - General Family Medicine 08/31/16 documented as of this encounter
--- OUTSIDE RECORDS SUMMARY | 2024-04-30 06:11 | External Medical Summary | Summary of Care ---
Author Name Unknown Organization [facility] Address [address] [place] [address] Phone [phone] Care Team Providers Care Sport Psychologist Name Role Phone Adán Fink MD Primary Care Provider + Reason for Visit * Reason Comments Physical-Exam CPE for pre-op clear ance. Patient denies any other concerns. Encounter Details Date Type Department Care Team (Late st Contact Info) Description 01/05/2024 1:20 PM EDT Office Visit Family [facility] 132 [facility] [place] [address] Shayna Ramirez, 132 [facility] [place] [address] Preop examination* Allergies No known active allergiesdocumented [...] mRNA, LNP-s, No Pre serve, 2-Dose Series ([facility]) 04/29/2021,09/14/2020 Covid-19, Mrna, Lnp-s, Pf, B ivalent, 30 Mcg, IM, 12 yrs and above ([employer] [facility]) 06/12/2022 Pneumococcal Conjugate Vacc, 13 Valent (Prevnar) [...] Stability Do you currently live in a senior living or have no steady place to sleep [...] Name Age of Onset Heart Disorder Mother ID age 68 all siblings , no other CA. Other (Other) Father age 32 horse accident Heart Disorder Sister ID age 58 fatal Cancer Sister lung CA- non smoker Heart Disorder Brother ID age 62 Review Of Systems Gen: Good [...] 01/29/2024 12:55 PM EDT Hospital Encounter OR [facility], Operating Room OSS [address] [place] [phone] Dany Thomas MD [address] [address] 01/29/2024 12:55 PM EDT - 01/29/2024 1:31 PM EDT Surgery OR [facility], Operating Room OSS [address] [place] [phone] Dany Thomas MD [address] [address] LEFT EXTRACAPSULAR CATARACT REMOVAL WITH INTRAOCULAR LENS 02/04/2024 10:00 AM EDT Office Visit Orthopaedics [facility] [address] [place] [address] Lewis Almaraz DO [address] [place] [address] 04/16/2024 11:00 AM EDT Office Visit Family Practice [facility] [address] [place] [address] Lauren Gonzalez CRNP [address] [place] [address] 04/28/2024 9:00 AM EDT Office Visit Cardiology, [facility] [address] [place] [address] Ludmila Jha CRNP [address] [place] [address] 10/16/2024 10:00 AM EDT Office Visit [facility] [address] [place] [address] Adán Fink MD [address] [place] [address] Scheduled Procedures Name Priority Associated Diagnoses Date/Ti [...] cataract documented in this encounter Care Teams Sport Psychologist Relationship Specialty Start Date End Date Adán Fink MD [address] [place] [address] PCP - General Family Medicine 08/31/16 documented as of this encounter
--- OUTSIDE RECORDS SUMMARY | 2024-04-30 06:11 | External Medical Summary | Summary of Care ---
Author Name Unknown Organization [facility] Address [address] [facility] [place] [address] Phone [phone] Care Team Providers Care Hardware Developer Name Role Phone Adán Fink MD Primary Care Provider + Reason for Visit * Reason Comments Follow Up Bilateral knee Encounter Details Date Type Department Care Team (Latest Contact Info) Description 02/04/2024 10:00 AM EDT Office Visit Orthopaedics [facility] [address] [place] [address] Lewis Almaraz, [address] [place] [address] Primary osteoarthritis of both knees* Allergies No [...] mRNA, LNP-s, No Pre serve, 2-Dose Series ([employer]) 04/29/2021,09/14/2020 Covid-19, Mrna, Lnp-s, Pf, B ivalent, [...] - 02/04/2024 10:00 AM EDT Kleber Darden [id number] Kleber Darden is a 83 year old [...] Almaraz DO Primary Care Sports Medicine Orthopaedics [facility] 132 [facility] [address] This chart was completed in part utilizing [employer] Speech Voice Recognition Software. Grammatical errors, random [...] 11:00 AM EDT Office Visit Family Practice [facility] 132 [facility] [place] [address] Lauren Gonzalez CRNP 132 [facility] [place] [address] 04/28/2024 9:00 AM EDT Office Visit Cardiology, [facility] [address] [place] [address] Ludmila Jha CRNP [address] [place] [address] 05/07/2024 10:30 AM EDT Office Visit Orthopaedics [facility] [address] [place] [address] Lewis Almaraz DO [address] [place] [address] 10/16/2024 10:00 AM EDT Office Visit Family Practice [facility] [address] [place] [address] Adán Fink MD [address] [place] [address] Scheduled Orders Name Type Priority Associated Diagnoses [...] this encounter Medical Devices Implanted Type Area Chemical Research Engineer Device Identifier Shelf Expiration Date Model / Serial / Lot Lens [id number] 13.00mm 16.50 - [id number] - [id number] Implanted:Qty: 1 on 01/29/2024 by Dany Thomas MD at [facility] Left: Eye [employer] 09/12/2028 [id number] / [id number] / [id number] documented as of this encounter Visit Diagnoses [...] Power of Attor deanna? No Care Teams Hardware Developer Relationship Specialty Start Date End Date Adán Fink MD [address] [place] [address] PCP - General Family Medicine 08/31/16 documented as of this encounter
--- OUTSIDE RECORDS SUMMARY | 2024-04-30 06:11 | External Medical Summary | Summary of Care ---
Author Name Unknown Organization [facility] Address [address] [place] [address] Phone [phone] Care Team Providers Care Analytics Lead Name Role Phone Adán Fink MD Primary Care Provider + Reason for Visit * Reason Comments Knee Pain bilateral Encounter Details Date Type Department Care Team (Latest Contact Info) Description 11/05/2023 8:30 AM EDT Office Visit [facility] [address] [facility] [address] Lewis Almaraz, [address] [facility] [address] Primary osteoarthritis of both knees* Allergies No [...] mRNA, LNP-s, No Pre serve, 2-Dose Series ([employer]) 04/29/2021,09/14/2020 Covid-19, Mrna, Lnp-s, Pf, B ivalent, [...] - 11/05/2023 8:30 AM EDT Kleber Darden [id number] Kleber Darden is a 83 year old [...] Almaraz DO Primary Care Sports Medicine Orthopaedics [address] [address] Procedure note (knee injection), bilateral : Time [...] Description 01/05/2024 9:00 AM EDT Office Visit [facility] [address] [place] [address] Alex Weinberg MD 200 [place] [address] 02/04/2024 10:00 AM EDT Office Visit Orthopaedics [facility] [address] [place] [address] Lewis Almaraz DO [address] [place] [address] 04/16/2024 11:00 AM EDT Office Visit [facility] [address] [place] [address] Lauren Gonzalez CRNP [address] [place] [address] 04/28/2024 9:00 AM EDT Office Visit Cardiology, [facility] [address] [place] [address] Ludmila Jha CRNP [address] [place] [address] 10/16/2024 10:00 AM EDT Office Visit [facility] [address] [place] [address] Adán Fink MD [address] [place] [address] Scheduled Orders Name Type Priority Associated Diagnoses [...] Left documented in this encounter Care Teams Analytics Lead Relationship Specialty Start Date End Date Adán Fink MD [address] [place] [address] PCP - General Family Medicine 08/31/16 documented as of this encounter
--- NOTE | 2024-04-30 07:52 | Electrocardiogram Report ---
Test Reason : Blood Pressure : */* mmHG Vent. Rate : 82 BPM Atrial Rate : * BPM P-R Int : * ms QRS Dur : 104 ms QT Int : 388 ms P-R-T Axes : * 93 31 degrees QTcB Int : 453 ms Sinus rhythm with frequent Premature atrial complexes and a 4 beat atrial run Incomplete right bundle branch block Abnormal ECG When compared with ECG of 07-Mar-2015 11:01, QRS duration has decreased Premature atrial complexes now present atrial run now present Confirmed by Jarrod Alex ([id number]) on 04/30/2024 7:52:24 AM Referred By: REFERRED SELF Confirmed By: Jarrod Alex
[2024-04-30] MEDS: cefTRIAXone SODIUM 2,000 MG/50 ML BAG IV SCH (08:53)
[2024-04-30 09:01] LABS: Basophils # (auto) 0.03 K/uL (0.00-0.20); Basophils % (auto) 0.5 %; Eosinophils # (auto) 0.07 K/uL (0.00-0.50); Eosinophils % (auto) 1.1 %; Hematocrit (blood only) 39.9 % (42.0-52.0); Hemoglobin 13.3 g/dl (14.0-18.0); Immature Granulocytes # (auto) 0.01 K/uL (0.01-0.20); Immature Granulocytes % (auto) 0.2 %; Lymphocytes # (auto) 2.98 K/uL (1.20-3.40); Lymphocytes % (auto) 47.1 %; Mean Corpuscular Hemoglobin 30.4 pg (25.0-34.0); Mean Corpuscular Hgb Conc 33.3 g/dL (32.0-36.0); Mean Corpuscular Volume 91.1 fL (80.0-100.0); Mean Platelet Volume 11.5 fL (9.4-12.4); Monocytes # (auto) 0.61 K/uL (0.11-0.59); Monocytes % (auto) 9.6 %; Neutrophils # (auto) 2.63 K/uL (1.40-6.50); Neutrophils % (auto) 41.5 %; Platelet Count 147 K/uL (130-400); RDW Coefficient of Variation 12.8 % (11.5-14.5); RDW Standard Deviation 42.2 fL (36.4-46.3); Red Blood Count 4.38 M/uL (4.70-6.10); White Blood Count 6.33 K/ul (4.8-10.8)
[2024-04-30] MEDS: SIMVASTATIN 20 MG TAB PO SCH (09:12)
[2024-04-30] MEDS: SERTRALINE HCL 50 MG TABLET PO SCH (09:12)
[2024-04-30] MEDS: FUROSEMIDE 40 MG/4 ML VIAL IV SCH (09:13)
[2024-04-30 09:15] LABS: BUN Creatinine Ratio 10.9 (10-20); Calcium 8.4 mg/dl (8.6-10.3); Creatinine Clr Calc Pharmacy 65.9 ml/min; Magnesium 1.8 mg/dl (1.7-2.4); Potassium 3.7 mmol/L (3.5-5.1)
[2024-04-30] MEDS: POTASSIUM CHLORIDE CRTAB 20 MEQ TABCR PO SCH (09:23)
--- NOTE | 2024-04-30 10:39 | Electrocardiogram Report ---
Test Reason : Blood Pressure : */* mmHG Vent. Rate : 71 BPM Atrial Rate : 71 BPM P-R Int : 156 ms QRS Dur : 114 ms QT Int : 438 ms P-R-T Axes : 63 94 46 degrees QTcB Int : 475 ms Normal sinus rhythm Right bundle branch block Abnormal ECG When compared with ECG of 29-Apr-2024 16:11, Premature atrial complexes no longer present Confirmed by Jarrod Alex ([id number]) on 04/30/2024 10:38:52 AM Referred By: REFERRED SELF Confirmed By: Jarrod Alex
--- NOTE | 2024-04-30 14:42 | Cardiology Consultation ---
Date of Consultation April 30, 2024 Assessment & Plan (1) DVT (deep venous thrombosis): (2) Cellulitis: (3) Venous insufficiency: (4) Edema: Plan Patient admitted with right LE DVT and worsening edema. concerns for CHF. Echo ordered and pending. Clinically, patient has no significant symptoms of HF. No hypoxia. No SOB. Chest CT without PE and no pleural effusion/pulm edema. Chronic venous stasis noted with acute Right LE cellulitis. Continue antibiotics per hospitalist. Recommend IV heparin for DVT and transition to possible DOAC if affordable. Defer to hospitalist. Hem work up for hypercoagulable state also recommended. Continue furosemide 40 mg IV for now. Monitor I+O's Monitor electrolytes Anticipate resuming oral furosemide 40 mg daily in 1-2 days. Case discussed with Dr. Broussard I spent a total of 45 minutes on the date of service in preparation, delivery, and documentation of the care provided to this patient, excluding any time spent in the performance of separately billed services. Amanda Finnegan PA-C Department of Cardiology, [facility] This chart was completed in part utilizing Speech Voice Recognition Software. Grammatical errors, random word insertions, pronoun errors, and incomplete sentences are an occasional consequence of this system due to software limitations, ambient noise, and hardware issues. Any formal questions or concerns about the content, text, or information contained within the body of this dictation should be directly addressed to the provider for clarification. Supervising Physician Co-Signing Physician Notes I have personally performed a history and physical examination on the patient. I have reviewed the advance practitioner's documentation, and I agree with, and take responsibility for the plan of care. 84-year-old male admitted with lower extremity deep venous thrombosis and evidence of mild volume overload. Recommend IV heparin for treatment of deep venous thrombosis and transition to possible DOAC if affordable. Hypercoagulable workup recommended. Continue IV furosemide at this time. Reassess volume status, electrolytes, and GFR in AM. Chato Broussard DO, [facility] History of Present Illness Reason for Consultation: CHF Requesting Physician: [facility] Hospitalist Attending Physician: Dr. Broussard History of Present Illness Patient is an 84-year-old male who presented to the emergency department at the direction of the outpatient cardiology office for findings of worsening lower extremity edema, right lower extremity DVT and possible cellulitis. Patient reported worsening LE edema R>L over the last few weeks. he admits to [facility]. Worsening edema also reproted as an outpatient. He was taking lasix but reports "this was not helping". Due to concerns regarding cellulitis and newly diagnosed DVT and volume overload, he was sent to ER. In ER he was started on IV heparin for DVT. Chest CT was without PE. History includes: 1. Venous insufficiency 2. Right BBB (chronic, cited back to 2009) 3. Pericardial effusion - small (chronic) At time of consult this morning patient feeling better. He reports less LE edema and improved right leg pain. No chest pain or dyspnea. Allergies Allergy/AdvReac Type Severity Reaction Status Date / Time No Known Allergies Allergy Unverified 08/24/09 14:15 Home Medications Medication Instructions Recorded Confirmed Type cephalexin 500 mg capsule 500 mg PO TID 04/29/24 04/29/24 History furosemide 40 mg tablet 40 mg PO DAILY 04/29/24 04/29/24 History levothyroxine 50 mcg tablet 50 mcg PO DAILY 04/29/24 04/29/24 History potassium chloride 20 mEq 20 meq PO DAILY 04/29/24 04/29/24 History tablet,extended release(part/cryst) sertraline 50 mg tablet 50 mg PO DAILY 04/29/24 04/29/24 History simvastatin 20 mg tablet 20 mg PO DAILY 04/29/24 04/29/24 History Patient History Social History Smoking Status: Never smoker Hx Alcohol Use: No Hx Substance Use: No Preferred Language: Hebrew Communication Ability: Effective 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 Beliefs That Will Affect Care: None Current Living Situation: Alone Feels Safe at Home: Yes Safety Concerns: Feels Safe At This Time Assistive Devices: Cane Review of Systems Review of Systems: All systems reviewed & are unremarkable except as noted in HPI & below Physical Exam Constitutional: WD/WN, vitals as above well developed; no acute distress Neck: trachea midline, no thyromegaly Respiratory: normal respiratory effort; no labored breathing Auscultation: + diminished lung sounds; no crackles, no rales and no rhonchi Cardiovascular: Rate/Rhythm: regular rate and regular rhythm Heart Sounds: normal S1 and normal S2; no murmur Vessels: no JVD Extremities: + edema (1+ b/l Edema with erythema of the right LE) Gastrointestinal (Abdomen): normal bowel sounds, soft, nontender, no hepatosplenomegaly Neurologic: PERRL, EOMI, accommodation nl, no face palsy, no dysarthria Results & Data Vital Signs (Past 12 Hours) Vital Signs Temp Pulse Pulse Resp BP Pulse Ox O2 Del Method 04/30/24 14:18 83 04/30/24 10:52 36.5 C 81 18 130/77 96 Room Air 04/30/24 09:30 Room Air 04/30/24 07:31 36.9 C 91 H 18 120/70 97 Room Air 04/30/24 07:19 80 04/30/24 03:15 36.4 C L 81 18 121/75 95 Room Air Laboratory Results Cardiac Enzymes 04/29/24 Range/Units 16:15 AST 20 (13-39) U/L Coagulation 04/29/24 Range/Units 16:15 PT 10.5 (9.0-12.0) Seconds APTT 24 (21-31) Seconds CBC 04/29/24 04/30/24 Range/Units 16:15 08:37 WBC 7.42 6.33 (4.8-10.8) K/ul RBC 5.18 4.38 L (4.70-6.10) M/uL Hgb 15.8 13.3 L (14.0-18.0) g/dl Hct 47.5 39.9 L (42.0-52.0) % Plt Count 199 147 (130-400) K/uL Neut # (Auto) 3.20 2.63 (1.40-6.50) K/uL Lymph # (Auto) 3.33 2.98 (1.20-3.40) K/uL [place] # (Auto) 0.74 H 0.61 H (0.11-0.59) K/uL Eos # (Auto) 0.09 0.07 (0.00-0.50) K/uL Baso # (Auto) 0.04 0.03 (0.00-0.20) K/uL Comprehensive Metabolic Panel 04/29/24 04/30/24 Range/Units 16:15 08:37 Sodium 141 141 (136-145) mmol/L Potassium 3.9 3.7 (3.5-5.1) mmol/L Chloride 106 107 (98-107) mmol/L Carbon Dioxide 28 24 (21-32) mmol/L BUN 11 10 (6-23) mg/dl Creatinine 0.98 0.92 (0.6-1.4) mg/dl Glucose 95 123 H (70-99(Fasting)) mg/dl Calcium 9.3 8.4 L (8.6-10.3) mg/dl AST 20 (13-39) U/L ALT 12 (7-52) U/L Alkaline Phosphatase 84 (34-104) U/L Total Protein 7.6 (6.0-8.3) gm/dl Albumin 4.3 (3.4-5.0) gm/dl Intake and Output 04/30/24 04/30/24 04/30/24 06:59 14:59 22:59 Intake Total 852.033 / 1011.316 159.283 / 1011.316 Balance 852.033 / 1011.316 159.283 / 1011.316 Intake: IV 252.033 / 411.316 159.283 / 411.316 Heparin Sodium/Dextrose 25,000 202.033 / 361.316 159.283 / 361.316 units In 500 ml @ 950 UNITS/HR 19 mls/hr IV .Q24H [facility] Rx#: [id number] cefTRIAXone SODIUM 2,000 mg In 50 / 50 50 ml @ 100 mls/hr IV Q24H [facility] Rx#:[id number] Oral 600 / 600 Other: Other Intake Source NPO # Unmeasured Voids 1 Weight 88 kg [facility] Diagnostic Findings Telemetry reviewed: NSR with occ PACs. EKG reviewed from 04/29/24: NSR with PAC"s. Short run of probable PAT lasting several beats. RBBB Repeat EKG from 04/30/24: NSR with RBBB no acute ischemic changes Prior outside data: Echocardiogram 10/11/23 Interpretation Summary The examination is adequate to evaluate the referral indication. The LV wall thickness is normal. The left ventricular wall motion is normal. The qualitative LV ejection fraction is 60-64% (normal). The left ventricular diastolic function is mildly abnormal (grade I). Mild tricuspid regurgitation is present. There is no evidence of pulmonary hypertension. There is a small circumferential pericardial effusion with thickening and organization. Effusion is of non hemodynamic significance, no tamponade. Compared to the images obtained at the time of the previous study dated , mild tricuspid regurgitation is now noted. The pericardial effusion is unchanged. Echocardiogram June 06, 2023 The left ventricular cavity size is normal. The LV wall thickness is mildly increased (concentric). The left ventricular wall motion is normal. The qualitative LV ejection fraction is 60-64% (normal). The left ventricular diastolic function is mildly abnormal (grade I). There is no significant valvular disease There is no evidence of pulmonary hypertension. The inferior vena cava is normal sized. There is a small circumferential pericardial effusion with thickening and organization. Effusion is of non hemodynamic significance, no tamponade Medications Administered Current Inpatient Medications Acetaminophen (Acetaminophen 325 Mg Tab) 650 mg PO Q4H PRN PRN Reason: Pain or Fever Stop: 05/30/24 00:58 Furosemide (Furosemide 40 Mg/4 Ml Vial) 40 mg IV DAILY [facility] Stop: 05/30/24 08:59 Last Admin: 04/30/24 09:13 Dose: 40 mg Heparin Sodium/Dextrose (Heparin Sodium/Dextrose) 25,000 units in 500 mls @ 19 mls/hr IV .Q24H [facility]; Protocol Stop: 05/29/24 20:14 Last Titration: 04/30/24 15:31 Dose: 950 units/hr, 19 mls/hr Ceftriaxone Sodium (Rocephin) 2,000 mg in 50 mls @ 100 mls/hr IV Q24H [facility] Stop: 05/07/24 07:59 Last Infusion: 04/30/24 09:23 Dose: Infused Levothyroxine Sodium (Levothyroxine Sodium 50 Mcg Tablet) 50 mcg PO DAILYBB [facility] Stop: 05/30/24 06:29 Last Admin: 04/30/24 05:58 Dose: 50 mcg Nitroglycerin (Nitroglycerin Sl 0.4 Mg/Tab Tab) 0.4 mg SL Q5M PRN PRN Reason: Chest Pain Stop: 05/30/24 00:58 Polyethylene Glycol (Polyethylene (Miralax) 17 Gm Pack) 17 gm PO DAILY PRN PRN Reason: Constipation Stop: 05/30/24 00:58 Potassium Chloride (Potassium Chloride Crtab 20 Meq Tabcr) 20 meq PO DAILY [facility] Stop: 05/30/24 08:59 Last Admin: 04/30/24 09:23 Dose: 20 meq Sertraline HCl (Sertraline Hcl 50 Mg Tablet) 50 mg PO DAILY [facility] Stop: 05/30/24 08:59 Last Admin: 04/30/24 09:12 Dose: 50 mg Simvastatin (Simvastatin 20 Mg Tab) 20 mg PO DAILY [facility] Stop: 05/30/24 08:59 Last Admin: 04/30/24 09:12 Dose: 20 mg
--- NOTE | 2024-04-30 18:10 | Hospitalist Progress Note ---
Date of Service April 30, 2024 Assessment & Plan (1) DVT (deep venous thrombosis): Plan: 84-year-old male with past medical history significant for hyperlipidemia, hypothyroidism, mild intermittent asthma, right bundle branch block, B12 deficiency, GERD, chronic back pain, restless leg syndrome, history of depression comes because of right lower extremity DVT and also CHF. Patient had routine cardiology visit yesterday. He was found to have swelling in the lower extremity right greater than left. Right lower extremity also somewhat warm and erythematous. He is having this edema for several weeks now. Seems he is noncompliant with salt. Cardiology ordered 80 mg Lasix 3 days and increase his maintenance dose from 20 to 40 mg and also ordered Dopplers and Keflex for possible cellulitis. Dopplers came back with right lower extremity DVT from the common femoral to the popliteal vein. Cardiology advised patient to come to the hospital and also advised for IV diuresis. Currently resting comfortably and hemodynamically stable. Denies any chest pain. Denies shortness of breath. Denies cough. No fevers. No headache. No runny nose or sore throat. No nausea. Normal bowel and bladder movements. Acute right lower extremity DVT CT chest no PE Placed on IV heparin Acute diastolic CHF Seems noncompliant with salt Placed on IV Lasix 40 mg daily Daily weights and I's and O's Follow echo Telemetry Cardiology consult for further recommendation Cellulitis of right lower extremity Was placed on Keflex yesterday by cardiology Will place on IV Rocephin while in the hospital Monitor response Hyperlipidemia On statin Hypothyroidism On Synthyroid Follow TSH Depression On sertraline DVT prophylaxis IV heparin Disposition Telemetry Full code. Admission and Anticipated Discharge Date Admission Date: April 29, 2024 Results & Data Results & Data Vital Signs (Past 12 Hours) Vital Signs Temp Pulse Pulse Resp BP Pulse Ox O2 Del Method 04/30/24 15:03 36.7 C 75 18 135/73 95 Room Air 04/30/24 14:18 83 04/30/24 10:52 36.5 C 81 18 130/77 96 Room Air 04/30/24 09:30 Room Air 04/30/24 07:31 36.9 C 91 H 18 120/70 97 Room Air 04/30/24 07:19 80
[2024-05-01 06:00] LABS: Basophils # (auto) 0.03 K/uL (0.00-0.20); Basophils % (auto) 0.5 %; Eosinophils # (auto) 0.12 K/uL (0.00-0.50); Eosinophils % (auto) 1.8 %; Hemoglobin 13.5 g/dl (14.0-18.0); Immature Granulocytes # (auto) 0.02 K/uL (0.01-0.20); Immature Granulocytes % (auto) 0.3 %; Lymphocytes # (auto) 3.15 K/uL (1.20-3.40); Lymphocytes % (auto) 48.3 %; Mean Corpuscular Hemoglobin 30.7 pg (25.0-34.0); Mean Corpuscular Hgb Conc 33.8 g/dL (32.0-36.0); Mean Corpuscular Volume 90.9 fL (80.0-100.0); Mean Platelet Volume 11.9 fL (9.4-12.4); Monocytes # (auto) 0.69 K/uL (0.11-0.59); Monocytes % (auto) 10.6 %; Neutrophils # (auto) 2.51 K/uL (1.40-6.50); Neutrophils % (auto) 38.5 %; Platelet Count 144 K/uL (130-400); RDW Coefficient of Variation 12.7 % (11.5-14.5); White Blood Count 6.52 K/ul (4.8-10.8)
[2024-05-01 06:10] LABS: Calcium 8.3 mg/dl (8.6-10.3); Creatinine Clr Calc Pharmacy 65.9 ml/min; Magnesium 1.8 mg/dl (1.7-2.4); Potassium 3.5 mmol/L (3.5-5.1)
[2024-05-01 06:17] LABS: ANTI-Xa, UFH(UnfractionatedHep 0.36 IU/ml (0.3-0.7)
--- NOTE | 2024-05-01 08:49 | Electrocardiogram Report ---
Test Reason : Blood Pressure : */* mmHG Vent. Rate : 70 BPM Atrial Rate : 70 BPM P-R Int : 154 ms QRS Dur : 112 ms QT Int : 430 ms P-R-T Axes : 60 93 35 degrees QTcB Int : 464 ms Normal sinus rhythm Right bundle branch block Abnormal ECG When compared with ECG of 30-Apr-2024 05:08, No significant change was found Confirmed by Jarrod Alex ([id number]) on 05/01/2024 8:49:27 AM Referred By: REFERRED SELF Confirmed By: Jarrod Alex
[2024-05-01] MEDS: APIXABAN 5 MG TABLET PO SCH (10:56)
--- NOTE | 2024-05-01 12:02 | Cardiology Progress Note ---
Date of Service May 01, 2024 Assessment & Plan (1) DVT (deep venous thrombosis): (2) Cellulitis: (3) Venous insufficiency: (4) Edema: Plan 04/30/24: Patient admitted with right LE DVT and worsening edema. concerns for CHF. Echo ordered and pending. Clinically, patient has no significant symptoms of HF. No hypoxia. No SOB. Chest CT without PE and no pleural effusion/pulm edema. Chronic venous stasis noted with acute Right LE cellulitis. Continue antibiotics per hospitalist. Recommend IV heparin for DVT and transition to possible DOAC if affordable. Defer to hospitalist. Hem work up for hypercoagulable state also recommended. Continue furosemide 40 mg IV for now. Monitor I+O's Monitor electrolytes Anticipate resuming oral furosemide 40 mg daily in 1-2 days. 05/01/24: Volume status improved after several doses of IV Lasix. Echo with normal LVEF, grade I diastolic dysfunction. Transition from IV Lasix to oral furosemide 40 mg daily Transition from IV heparin to possible DOAC (if affordable) for DVT. Defer to hospitalist. Stable cardiac symptoms. No further cardiac testing warranted. Will sign off. Please notify software integration developer cardiology provider with additional questions or concerns. Case discussed with Dr. Broussard I spent a total of 30 minutes on the date of service in preparation, delivery, and documentation of the care provided to this patient, excluding any time spent in the performance of separately billed services. Amanda Finnegan PA-C Department of Cardiology, [facility] This chart was completed in part utilizing Speech Voice Recognition Software. Grammatical errors, random word insertions, pronoun errors, and incomplete se ntences are an occasional consequence of this system due to software limitations, ambient noise, and hardware issues. Any formal questions or concerns about the content, text, or information contained within the body of this dictation should be directly addressed to the provider for clarification. Admission and Anticipated Discharge Date Admission Date: April 29, 2024 Supervising Physician Co-Signing Physician Notes I have personally performed a history and physical examination on the patient. I have reviewed the advance practitioner's documentation, and I agree with, and take responsibility for the plan of care. 84-year-old male admitted with lower extremity deep venous thrombosis and evidence of mild volume overload. Recommend IV heparin for treatment of deep venous thrombosis and transition to possible DOAC if affordable. Hyper coagulable workup recommended. Discontinue IV furosemide at this time. Resume oral furosemide 40mg daily. Cardiology will sign off. Please call with further concerns/questions. Chtao Broussard DO, [facility] Subjective Patient resting in bed comfortably. Anxious for discharge. SOB improved. Still mild LE edema R>L with mild erythema of the right leg. Denies chest pain or SOB. No dizziness Review of Systems Review of Systems: All systems reviewed & are unremarkable except as noted in HPI & below Physical Exam Constitutional: WD/WN, vitals as above well developed; no acute distress Neck: trachea midline, no thyromegaly Respiratory: normal respiratory effort; no labored breathing Auscultation: + diminished lung sounds; no crackles, no rales and no rhonchi Cardiovascular: Rate/Rhythm: regular rate and regular rhythm Heart Sounds: normal S1 and normal S2; no murmur Vessels: no JVD Extremities: + edema (1+ b/l Edema with erythema of the right LE) Gastrointestinal (Abdomen): normal bowel sounds, soft, nontender, no hepatosplenomegaly Neurologic: PERRL, EOMI, accommodation nl, no face palsy, no dysarthria Results & Data Vital Signs (Past 12 Hours) Vital Signs Temp Pulse Pulse Pulse Resp BP Pulse Ox 05/01/24 11:00 36.5 C 87 87 18 128/72 97 05/01/24 07:42 36.3 C L 77 16 134/69 93 05/01/24 07:42 70 05/01/24 03:05 36.7 C 78 16 134/73 94 O2 Del Method 05/01/24 11:00 Room Air 05/01/24 07:42 Room Air 05/01/24 07:42 05/01/24 03:05 Room Air Laboratory Results CBC 05/01/24 Range/Units 05:29 WBC 6.52 (4.8-10.8) K/ul RBC 4.40 L (4.70-6.10) M/uL Hgb 13.5 L (14.0-18.0) g/dl Hct 40.0 L (42.0-52.0) % Plt Count 144 (130-400) K/uL Neut # (Auto) 2.51 (1.40-6.50) K/uL Lymph # (Auto) 3.15 (1.20-3.40) K/uL [place] # (Auto) 0.69 H (0.11-0.59) K/uL Eos # (Auto) 0.12 (0.00-0.50) K/uL Baso # (Auto) 0.03 (0.00-0.20) K/uL Comprehensive Metabolic Panel 05/01/24 Range/Units 05:29 Sodium 139 (136-145) mmol/L Potassium 3.5 (3.5-5.1) mmol/L Chloride 107 (98-107) mmol/L Carbon Dioxide 24 (21-32) mmol/L BUN 11 (6-23) mg/dl Creatinine 0.92 (0.6-1.4) mg/dl Glucose 90 (70-99(Fasting)) mg/dl Calcium 8.3 L (8.6-10.3) mg/dl Intake and Output 04/30/24 05/01/24 05/01/24 22:59 06:59 14:59 Intake Total 413.549 / 1365.582 100 / 1365.582 274.200 / 274.200 Balance 413.549 / 1365.582 100 / 1365.582 274.200 / 274.200 Intake: IV 293.549 / 545.582 274.200 / 274.200 Heparin Sodium/Dextrose 25,000 293.549 / 495.582 224.200 / 224.200 units In 500 ml @ 950 UNITS/HR 19 mls/hr IV .Q24H [facility] Rx#: [id number] cefTRIAXone SODIUM 2,000 mg In 50 / 50 50 ml @ 100 mls/hr IV Q24H [facility] Rx#:[id number] Oral 120 / 820 100 / 820 Other: # Unmeasured Voids 1 Weight 86.4 kg Weight Measurement Method Built in [facility] Diagnostic Findings Telemetry reviewed: Sinus and sinus tach. Short runs of PAT noted. Non sustained. No symptoms. Echo report reviewed from 04/30/24: Normal LVEF at 55-60% Mild concentric LVH Grade I diastolic dysfunction No significant valvular pathology Medications Administered Current Inpatient Medications Acetaminophen (Acetaminophen 325 Mg Tab) 650 mg PO Q4H PRN PRN Reason: Pain or Fever Stop: 05/30/24 00:58 Apixaban (Apixaban 5 Mg Tablet) 10 mg PO BID [facility] Stop: 05/07/24 21:01 Last Admin: 05/01/24 10:56 Dose: 10 mg Furosemide (Furosemide 40 Mg/4 Ml Vial) 40 mg IV DAILY [facility] Stop: 05/30/24 08:59 Last Admin: 05/01/24 08:16 Dose: 40 mg Ceftriaxone Sodium (Rocephin) 2,000 mg in 50 mls @ 100 mls/hr IV Q24H [facility] Stop: 05/07/24 07:59 Last Infusion: 05/01/24 08:07 Dose: Infused Levothyroxine Sodium (Levothyroxine Sodium 50 Mcg Tablet) 50 mcg PO DAILYBB [facility] Stop: 05/30/24 06:29 Last Admin: 05/01/24 05:32 Dose: 50 mcg Nitroglycerin (Nitroglycerin Sl 0.4 Mg/Tab Tab) 0.4 mg SL Q5M PRN PRN Reason: Chest Pain Stop: 05/30/24 00:58 Polyethylene Glycol (Polyethylene (Miralax) 17 Gm Pack) 17 gm PO DAILY PRN PRN Reason: Constipation Stop: 05/30/24 00:58 Potassium Chloride (Potassium Chloride Crtab 20 Meq Tabcr) 20 meq PO DAILY [facility] Stop: 05/30/24 08:59 Last Admin: 05/01/24 08:15 Dose: 20 meq Sertraline HCl (Sertraline Hcl 50 Mg Tablet) 50 mg PO DAILY [facility] Stop: 05/30/24 08:59 Last Admin: 05/01/24 08:16 Dose: 50 mg Simvastatin (Simvastatin 20 Mg Tab) 20 mg PO DAILY [facility] Stop: 05/30/24 08:59 Last Admin: 05/01/24 08:16 Dose: 20 mg
--- NOTE | 2024-05-01 16:40 | Hospitalist Progress Note ---
Date of Service May 01, 2024 Assessment & Plan (1) DVT (deep venous thrombosis): Plan: per previous hospitalist notes with addendum: 84-year-old male with past medical history significant for hyperlipidemia, hypothyroidism, mild intermittent asthma, right bundle branch block, B12 deficiency, GERD, chronic back pain, restless leg syndrome, history of depression comes because of right lower extremity DVT and also CHF. Patient had routine cardiology visit yesterday. He was found to have swelling in the lower extremity right greater than left. Right lower extremity also somewhat warm and erythematous. He is having this edema for several weeks now. Seems he is noncompliant with salt. Cardiology ordered 80 mg Lasix 3 days and increase his maintenance dose from 20 to 40 mg and also ordered Dopplers and Keflex for possible cellulitis. Dopplers came back with right lower extremity DVT from the common femoral to the popliteal vein. Cardiology advised patient to come to the hospital and also advised for IV diuresis. Currently resting comfortably and hemodynamically stable. Denies any chest pain. Denies shortness of breath. Denies cough. No fevers. No headache. No runny nose or sore throat. No nausea. Normal bowel and bladder movements. Acute right lower extremity DVT CT chest no PE Placed on IV heparin 05/01 R LE edema improving transitioned from Heparin to Eliquis hypercoagulable work up pending: follow up will need referral to binder caser Acute diastolic CHF Seems noncompliant with salt Placed on IV Lasix 40 mg daily Daily weights and I's and O's Echo: EF 55-60%, mild concentric LVH, grade 1 diastolic dysfunction, no significant valvular pathology Telemetry Cardiology consult for further recommendation 05/01 diuresed well continue Lasix Cellulitis of right lower extremity Was placed on Keflex yesterday by cardiology Will place on IV Rocephin while in the hospital Monitor response 05/01 improving Hyperlipidemia On statin Hypothyroidism On Synthyroid Follow TSH Depression On sertraline DVT - already on Eliquis per above Disposition anticipate d/c home tomorrow when medically stable Admission and Anticipated Discharge Date Admission Date: April 29, 2024 Subjective ff up for R LE DVT, CHF exacerbation, RLE cellulitis, etc seen resting in bed, comfortable states he only has mild "tingling" of the RLE ambulates to the bathroom with no problems no chest pain, dyspnea, palpitations, dizziness no other sympstom Review of Systems Review of Systems: all noted and negative except for above Physical Exam Physical Exam: General- oriented x 3, not in distress, speaks in sentences with no effort or accessory muscle use Eyes- anicteric Neck- no JVD Lungs- clear breath sounds bilaterally, no crackles or wheezing Heart- normal rate, regular rhythm; no murmurs Abdomen- normal bowel sounds, nondistended, soft, nontender Extremities-RLE: mild edema, mild erythema and warmth, no tenderness LLE: no pretibial edema, no calf tenderness Neuro- alert, oriented x 3; no gross focal neurologic deficits Skin- warm & dry Results & Data Results & Data Vital Signs (Past 12 Hours) Vital Signs Temp Pulse Pulse Pulse Resp BP Pulse Ox 05/01/24 16:29 74 05/01/24 15:00 36.6 C 98 H 98 H 16 135/68 98 05/01/24 11:00 36.5 C 87 87 18 128/72 97 05/01/24 07:42 36.3 C L 77 16 134/69 93 05/01/24 07:42 70 O2 Del Method 05/01/24 16:29 05/01/24 15:00 Room Air 05/01/24 11:00 Room Air 05/01/24 07:42 Room Air 05/01/24 07:42 all noted and reviewed including below
[2024-05-02 05:37] LABS: Basophils # (auto) 0.04 K/uL (0.00-0.20); Basophils % (auto) 0.6 %; Eosinophils # (auto) 0.16 K/uL (0.00-0.50); Eosinophils % (auto) 2.6 %; Hematocrit (blood only) 39.3 % (42.0-52.0); Hemoglobin 13.5 g/dl (14.0-18.0); Immature Granulocytes # (auto) 0.01 K/uL (0.01-0.20); Immature Granulocytes % (auto) 0.2 %; Lymphocytes # (auto) 2.82 K/uL (1.20-3.40); Mean Corpuscular Hemoglobin 30.5 pg (25.0-34.0); Mean Corpuscular Hgb Conc 34.4 g/dL (32.0-36.0); Mean Corpuscular Volume 88.9 fL (80.0-100.0); Mean Platelet Volume 11.6 fL (9.4-12.4); Monocytes # (auto) 0.74 K/uL (0.11-0.59); Monocytes % (auto) 11.8 %; Neutrophils % (auto) 39.8 %; Platelet Count 154 K/uL (130-400); RDW Coefficient of Variation 12.6 % (11.5-14.5); RDW Standard Deviation 41.4 fL (36.4-46.3); Red Blood Count 4.42 M/uL (4.70-6.10); White Blood Count 6.27 K/ul (4.8-10.8)
[2024-05-02 07:19] LABS: ANTI-Xa, UFH(UnfractionatedHep > 1.50 IU/ml (0.3-0.7)
[2024-05-02 08:12] LABS: BUN Creatinine Ratio 10.8 (10-20); Calcium 8.6 mg/dl (8.6-10.3); Creatinine Clr Calc Pharmacy 65.2 ml/min; Potassium 3.5 mmol/L (3.5-5.1)
[2024-05-02] MEDS: FUROSEMIDE 40 MG TAB PO SCH (08:15)
[2024-05-02 11:01] VITALS: BP 112/69; RESP 17; TEMP 97.7; O2SAT 96
--- NOTE | 2024-05-02 11:15 | Hospitalist Progress Note ---
Date of Service May 02, 2024 Assessment & Plan (1) DVT (deep venous thrombosis): Plan: per previous hospitalist notes with addendum: 84-year-old male with past medical history significant for hyperlipidemia, hypothyroidism, mild intermittent asthma, right bundle branch block, B12 deficiency, GERD, chronic back pain, restless leg syndrome, history of depression comes because of right lower extremity DVT and also CHF. Patient had routine cardiology visit yesterday. He was found to have swelling in the lower extremity right greater than left. Right lower extremity also somewhat warm and erythematous. He is having this edema for several weeks now. Seems he is noncompliant with salt. Cardiology ordered 80 mg Lasix 3 days and increase his maintenance dose from 20 to 40 mg and also ordered Dopplers and Keflex for possible cellulitis. Dopplers came back with right lower extremity DVT from the common femoral to the popliteal vein. Cardiology advised patient to come to the hospital and also advised for IV diuresis. Currently resting comfortably and hemodynamically stable. Denies any chest pain. Denies shortness of breath. Denies cough. No fevers. No headache. No runny nose or sore throat. No nausea. Normal bowel and bladder movements. Acute right lower extremity DVT CT chest no PE Placed on IV heparin 05/01 R LE edema improving transitioned from Heparin to Eliquis hypercoagulable work up pending: follow up will need referral to senior painter 05/02 Right lower extremity edema mostly improved now Tolerating Eliquis well Discharge plan: Eliquis 10 mg twice a day for 9 more days, then 5 mg twice a day DVT seems to be unprovoked, please refer to hematology service for further workup and determination of duration of anticoagulation Acute diastolic CHF Seems noncompliant with salt Placed on IV Lasix 40 mg daily Daily weights and I's and O's Echo: EF 55-60%, mild concentric LVH, grade 1 diastolic dysfunction, no significant valvular pathology Telemetry Cardiology consult for further recommendation 05/01 diuresed well continue Lasix 05/02 Leg edema mostly resolved Discharged on Lasix 40 mg p.o. daily Cellulitis of right lower extremity Was placed on Keflex yesterday by cardiology Will place on IV Rocephin while in the hospital Monitor response 05/01 improving 05/02 Cellulitis also resolving steadily Has received 3 days of IV ceftriaxone Discharged on cephalexin 500 mg 4 times daily x 5 more days Hyperlipidemia On statin Hypothyroidism On Synthyroid TSH 3.8 Depression On sertraline DVT - already on Eliquis per above Disposition Discharge to home Follow-up with PCP in 1 week Please refer to hematology service Admission and Anticipated Discharge Date Admission Date: April 29, 2024 Subjective Follow-up for acute DVT, right lower extremity cellulitis, etc. Seen sitting up in bedside chair, comfortable, not in distress, in good spirits States he feels much better overall No right lower extremity pain No shortness of breath, chest pain, dizziness, bleeding No other new symptoms States he is ready for discharge today Review of Systems Review of Systems: all noted and negative except for above Physical Exam Physical Exam: General- oriented x 3, not in distress, speaks in sentences with no effort or accessory muscle use Eyes- anicteric Neck- no JVD Lungs- clear breath sounds bilaterally, no rales/wheezes Heart- normal rate, regular rhythm; no murmurs Abdomen- normal bowel sounds, nondistended, soft, nontender Extremities- Right lower extremity: Mild edema, very mild erythema, small area of hyperpigmentation and distal aspect of the medial lower leg, no open wounds No warmth, no tenderness Left lower extremity: Essentially normal Neuro- alert, oriented x 3; no gross focal neurologic deficits Skin- warm & dry Results & Data Results & Data Vital Signs (Past 12 Hours) Vital Signs Temp Pulse Pulse Resp BP Pulse Ox O2 Del Method 05/02/24 11:00 36.5 C 86 17 112/69 96 Room Air 05/02/24 07:57 36.4 C L 75 20 121/69 94 Room Air 05/02/24 07:00 68 05/02/24 03:03 36.8 C 65 16 108/62 94 Room Air 05/01/24 23:15 36.7 C 84 18 137/66 91 Room Air all noted and reviewed including below
--- NOTE | 2024-05-02 11:26 | Discharge Summary ---
Discharge Summary Date of Service May 02, 2024 Principal Dx & Hospital Course #1 = Principal Diagnosis (1) DVT (deep venous thrombosis): per previous hospitalist notes with addendum: 84-year-old male with past medical history significant for hyperlipidemia, hypothyroidism, mild intermittent asthma, right bundle branch block, B12 deficiency, GERD, chronic back pain, restless leg syndrome, history of depression comes because of right lower extremity DVT and also CHF. Patient had routine cardiology visit yesterday. He was found to have swelling in the lower extremity right greater than left. Right lower extremity also somewhat warm and erythematous. He is having this edema for several weeks now. Seems he is noncompliant with salt. Cardiology ordered 80 mg Lasix 3 days and increase his maintenance dose from 20 to 40 mg and also ordered Dopplers and Keflex for possible cellulitis. Dopplers came back with right lower extremity DVT from the common femoral to the popliteal vein. Cardiology advised patient to come to the hospital and also advised for IV diuresis. Currently resting comfortably and hemodynamically stable. Denies any chest pain. Denies shortness of breath. Denies cough. No fevers. No headache. No runny nose or sore throat. No nausea. Normal bowel and bladder movements. Acute right lower extremity DVT CT chest no PE Placed on IV heparin 05/01 R LE edema improving transitioned from Heparin to Eliquis hypercoagulable work up pending: follow up will need referral to combination building inspector 05/02 Right lower extremity edema mostly improved now Tolerating Eliquis well Discharge plan: Eliquis 10 mg twice a day for 9 more days, then 5 mg twice a day DVT seems to be unprovoked, please refer to hematology service for further workup and determination of duration of anticoagulation Acute diastolic CHF Seems noncompliant with salt Placed on IV Lasix 40 mg daily Daily weights and I's and O's Echo: EF 55-60%, mild concentric LVH, grade 1 diastolic dysfunction, no significant valvular pathology Telemetry Cardiology consult for further recommendation 05/01 diuresed well continue Lasix 05/02 Leg edema mostly resolved Discharged on Lasix 40 mg p.o. daily Cellulitis of right lower extremity Was placed on Keflex yesterday by cardiology Will place on IV Rocephin while in the hospital Monitor response 05/01 improving 05/02 Cellulitis also resolving steadily Has received 3 days of IV ceftriaxone Discharged on cephalexin 500 mg 4 times daily x 5 more days Moderate coronary artery calcifications seen on CT chest further work up and follow up as outpatient Hyperlipidemia On statin Hypothyroidism On Synthyroid TSH 3.8 Depression On sertraline Disposition Discharge to home Follow-up with PCP in 1 week Please refer to hematology service Notes For Next Care Provider Medication Changes From Visit New medications: Eliquis Cephalexin Lasix Admission HPI Per Admitting Provider 84-year-old male with past medical history significant for hyperlipidemia, hypothyroidism, mild intermittent asthma, right bundle branch block, B12 deficiency, GERD, chronic back pain, restless leg syndrome, history of depression comes because of right lower extremity DVT and also CHF. Patient had routine cardiology visit yesterday. He was found to have swelling in the lower extremity right greater than left. Right lower extremity also somewhat warm and erythematous. He is having this edema for several weeks now. Seems he is noncompliant with salt. Cardiology ordered 80 mg Lasix 3 days and increase his maintenance dose from 20 to 40 mg and also ordered Dopplers and Keflex for possible cellulitis. Dopplers came back with right lower extremity DVT from the common femoral to the popliteal vein. Cardiology advised patient to come to the hospital and also advised for IV diuresis. Currently resting comfortably and hemodynamically stable. Denies any chest pain. Denies shortness of breath. Denies cough. No fevers. No headache. No runny nose or sore throat. No nausea. Normal bowel and bladder movements. Past medical history. As mentioned above Past surgical history. Cystoscopy. Cystoscopy with insertion of stent. Cystourethroscopy with lithotripsy. Laparoscopic assisted tongue. Left cataracts. Social history. . No smoking. No alcohol. No drug use Family history. Sister has lung cancer. Brother has AL. Sister has AL. Mother had AL. Admission Exam Per Admitting Provider General- Not in distress Head- atraumatic Eyes- PERRL. ENT- oropharynx clear Neck- supple, no JVD. Lungs- clear to auscultation no wheezing or crackles Heart- regular rhythm; no murmur, no gallop. Abdomen- normal bowel sounds, soft, nontender, no distension Extremities- b/l lower extremity edema right leg erythematous Neuro- alert, oriented ; PERRL, no facial palsy; no dysarthria; moves etxremities Discharge Exam General- oriented x 3, not in distress, speaks in sentences with no effort or accessory muscle use Eyes- anicteric Neck- no JVD Lungs- clear breath sounds bilaterally, no rales/wheezes Heart- normal rate, regular rhythm; no murmurs Abdomen- normal bowel sounds, nondistended, soft, nontender Extremities- Right lower extremity: Mild edema, very mild erythema, small area of hyperpigmentation and distal aspect of the medial lower leg, no open wounds No warmth, no tenderness Left lower extremity: Essentially normal Neuro- alert, oriented x 3; no gross focal neurologic deficits Skin- warm & dry Updated Medication List Medication Instructions Recorded Confirmed Type furosemide 40 mg tablet 40 mg PO DAILY 04/29/24 04/29/24 History levothyroxine 50 mcg tablet 50 mcg PO DAILY 04/29/24 04/29/24 History potassium chloride 20 mEq 20 meq PO DAILY 04/29/24 04/29/24 History tablet,extended release(part/cryst) sertraline 50 mg tablet 50 mg PO DAILY 04/29/24 04/29/24 History simvastatin 20 mg tablet 20 mg PO DAILY 04/29/24 04/29/24 History apixaban 5 mg (74 tabs) tablets in 5 mg PO Q12H #74 ea 05/02/24 Rx a dose pack (Eliquis) cephalexin 500 mg capsule 500 mg PO QID 5 days #20 caps 05/02/24 Rx Hospital Stay Data Consultations 04/29/24 20:37 ED Decision to Admit Stat 04/30/24 08:00 Consult Cardiology Routine Diagnostic Imagining Performed 04/29/24 16:39 CT angio chest PE protocol Stat EXAM: CT Angiography Chest With Intravenous Contrast CLINICAL HISTORY: Reason for exam: tachy, outpt us with DVT, eval for PE. TECHNIQUE: Axial computed tomographic angiography images of the chest with intravenous contrast. CTDI is 38 mGy and DLP is 888.27 mGy-cm. Automated exposure control was utilized for the study. A dose lowering technique was utilized adhering to the principles of ALARA. MIP reconstructed images were created and reviewed. COMPARISON: No relevant prior studies available. FINDINGS: Pulmonary arteries: No pulmonary embolism. Aorta: No acute findings. Normal caliber. No dissection. Lungs: Unremarkable. Pleural space: Unremarkable. Heart: Heart size is normal. Moderate coronary artery calcifications. Mediastinum: Small hiatal hernia. Bones/joints: No acute fracture. Soft tissues: Unremarkable. Lymph nodes: Unremarkable. IMPRESSION: No pulmonary embolism. No acute abnormality within the chest. Electronically signed by: David Mchugh MD 04/29/24 19:32 PM Pending Results Patient Have Any Pending Studies at Discharge: Yes Discharge Instructions Given to Patient (Per Discharging Provider) PLEASE REFER TO YOUR NEW MEDICATION LIST AND FOLLOW INSTRUCTIONS CAREFULLY. YOUR NEW MEDICATIONS INCLUDE: Eliquis-blood thinner for treatment of blood clots of the lower extremity -Take 10 mg twice a day for 9 days, then take 5 mg twice a day Cephalexin-antibiotic for lower extremity cellulitis -Please take a probiotic daily for 1 month to prevent diarrhea (Bling [employer] recommended) Lasix- diuretic/water pill to prevent fluid accumulation in the legs PLEASE CALL YOUR PRIMARY CARE PHYSICIAN OR RETURN TO THE ER IF WITH WORSENING OF SYMPTOMS, INCLUDING Leg swelling, pain, redness, fevers or chills, diarrhea, dizziness, weakness, etc. FOLLOW UP WITH PRIMARY CARE PHYSICIAN OUTLINED ABOVE. Total Time Total Time Spent Total Time Spent (In Minutes): 45 minutes
[2024-05-02 11:30] VITALS: PULSE 98
[2024-05-03 22:32] LABS: Anti Cardiolipin Ab IgG <2.0 GPL-U/mL; Anti Cardiolipin Ab IgM <2.0 MPL-U/mL; B2 Glycoprotein IgG <2.0 U/mL (<20.0); B2 Glycoprotein IgM <2.0 U/mL (<20.0)
== END 2024-05-02 12:06 | disposition home or self-care (01) | DRG 299 ==
LOC: ED 15:41 → 2S 23:05 → SUATTDRO 23:05 → 2S 04-30 00:21
DX: Z79.890 Hormone replacement therapy; K21.9 Gastro-esophageal reflux disease without esophagitis; I87.2 Venous insufficiency (chronic) (peripheral); G89.29 Other chronic pain; E03.9 Hypothyroidism, unspecified; I82.411 Acute embolism and thrombosis of right femoral vein; M54.9 Dorsalgia, unspecified; Z91.199 Patient's noncompliance with other medical treatment and regimen due to unspecified reason; Z79.899 Other long term (current) drug therapy; F32.A Depression, unspecified; L03.115 Cellulitis of right lower limb; I82.431 Acute embolism and thrombosis of right popliteal vein; E78.5 Hyperlipidemia, unspecified; I50.31 Acute diastolic (congestive) heart failure; I45.10 Unspecified right bundle-branch block; J45.20 Mild intermittent asthma, uncomplicated; G25.81 Restless legs syndrome

== ENCOUNTER 2024-06-20 18:36 | Inpatient (IN) ==
[2024-06-20 19:17] LABS: Hematocrit (blood only) 46.1 % (42.0-52.0); Hemoglobin 15.8 g/dl (14.0-18.0); Mean Corpuscular Hemoglobin 31.2 pg (25.0-34.0); Mean Corpuscular Hgb Conc 34.3 g/dL (32.0-36.0); Mean Corpuscular Volume 91.1 fL (80.0-100.0); Platelet Count 142 K/uL (130-400); RDW Coefficient of Variation 12.8 % (11.5-14.5); RDW Standard Deviation 42.5 fL (36.4-46.3); Red Blood Count 5.06 M/uL (4.70-6.10); White Blood Count 9.24 K/ul (4.8-10.8)
[2024-06-20 20:00] LABS: Partial Thromboplastin Ratio 0.8; Partial Thromboplastin Time 21 Seconds (21-31); Prothrombin Time 10.8 Seconds (9.0-12.0)
[2024-06-20 20:05] LABS: Alanine Aminotransferase 13 U/L (7-52); Albumin Globulin Ratio 1.4 (0.9-2); Albumin Level 4.6 gm/dl (3.4-5.0); Alkaline Phosphatase 86 U/L (34-104); Anion Gap 9 (3-11); BUN Creatinine Ratio 19.3 (10-20); Bilirubin,Total 1.3 mg/dl (0.2-1.0); Blood Urea Nitrogen 21 mg/dl (6-23); Calcium 9.9 mg/dl (8.6-10.3); Carbon Dioxide 26 mmol/L (21-32); Chloride 104 mmol/L (98-107); Creatinine Clr Calc Pharmacy 55.6 ml/min; Globulin 3.3 gm/dl (2.5-4.0); Glucose 120 mg/dl (70-99(Fasting)); Sodium 139 mmol/L (136-145); Total Protein 7.9 gm/dl (6.0-8.3); Troponin I High Sensitivity 8.3 pg/ml (0-20)
[2024-06-20] MEDS: PANTOprazole 80 MG in DEXTROSE 5% 100 ML IV ONE (20:14)
[2024-06-20] MEDS: PANTOPRAZOLE BOLUS/DRIP IV STA (20:14)
[2024-06-20] MEDS: PANTOprazole 40 MG in DEXTROSE 5% MINI-B 100 ML IV SCH (20:35)
[2024-06-20 20:42] LABS: Potassium 3.6 mmol/L (3.5-5.1)
[2024-06-20] MEDS: OPTIRAY 320 100ml IV ONE (21:05)
--- NOTE | 2024-06-20 21:59 | Emergency Department Note ---
History of Present Illness General Chief complaint: GI Bleed Stated complaint: VOMIT, DIARRHEA, CHILLS Time Seen by Provider: 06/20/24 19:11 History of Present Illness Provider Complaint: + coffee ground emesis and + melena Onset (ago): 2 day(s) Pain Consistency: + constant Relieved By: + none Exacerbated By: + eating and + bowel movement Context: + anticoagulant use (Eliquis); no rectal trauma Associated symptoms: no abdominal pain, no epistaxis or no fever Home Medications Medication Instructions Recorded Confirmed Type furosemide 40 mg tablet 40 mg PO DAILY 04/29/24 06/20/24 History levothyroxine 50 mcg tablet 50 mcg PO DAILY 04/29/24 06/20/24 History potassium chloride 20 mEq 20 meq PO DAILY 04/29/24 06/20/24 History tablet,extended release(part/cryst) sertraline 50 mg tablet 50 mg PO DAILY 04/29/24 06/20/24 History simvastatin 20 mg tablet 20 mg PO DAILY 04/29/24 06/20/24 History apixaban 5 mg (74 tabs) tablets in 5 mg PO Q12H #74 ea 05/02/24 06/20/24 Rx a dose pack (Eliquis) Allergies Allergy/AdvReac Type Severity Reaction Status Date / Time No Known Allergies Allergy Unverified 08/24/09 14:15 Past Med/Surg History Problem List (Updated 06/20/24 @ 23:29 by Brian Menjivar MD) GIB (gastrointestinal bleeding) (Acute) Edema Venous insufficiency Cellulitis DVT (deep venous thrombosis) (Acute) Pleuritic chest pain (Acute) Right leg swelling (Acute) Bronchitis (Acute) Pleuritic chest pain (Acute) Bronchitis (Acute) Acute cholecystitis (Acute) Dyslipidemia (Chronic) History of renal calculi (Chronic) Asthma (Chronic) Social History Smoking Status: Never smoker Hx Alcohol Use: No Hx Substance Use: No Preferred Language: Divehi Communication Ability: Effective 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 Metal 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: No Beliefs That Will Affect Care: None Current Living Situation: Alone Feels Safe at Home: Yes Assistive Devices: Cane Physical Exam 2 Vital Signs: Vital Signs - 24 hr 06/20/24 18:48 06/20/24 19:06 06/20/24 19:07 Temperature 36.8 C Temperature Source Temporal Artery Sc an Pulse Rate - Lying Pulse Rate - Sitti ng Pulse Rate - Stand ing Pulse Rate 108 H 76 74 Pulse Rate [Finger ] Pulse Rate from Sp O2 Sensor 74 Pulse Rhythm Regular Pulse Rhythm [Fing er] Pulse Strength [Fi nger] Respiratory Rate 18 18 16 Respiratory Effort / Characteristics Non-Labored Sponta neous Respiratory Depth Normal Blood Pressure - L jose Blood Pressure - S itting Blood Pressure- St anding Blood Pressure 119/77 130/76 Blood Pressure [Ri ght Arm] Blood Pressure Terra n 91 94 Blood Pressure Terra n [Right Arm] Blood Pressure Pos ition Sitting Blood Pressure Pos ition [Right Arm] Pulse Oximetry 98 98 98 Oxygen Delivery Me thod Room Air Room Air Sepsis Recent Feve r Within 48 Hours No Sepsis New/Unexpla ined Change in Men kim Status N/A Sepsis Action Take n by Nursing No Action Required 06/20/24 21:09 06/20/24 22:00 06/20/24 22:37 Temperature Temperature Source Pulse Rate - Lying 63 Pulse Rate - Sitti ng 75 Pulse Rate - Stand ing 88 Pulse Rate Pulse Rate [Finger ] 69 62 Pulse Rate from Sp O2 Sensor Pulse Rhythm Pulse Rhythm [Fing er] Regular Regular Pulse Strength [Fi nger] Normal Normal Respiratory Rate 18 18 Respiratory Effort / Characteristics Non-Labored Sponta neous Non-Labored Sponta neous Respiratory Depth Normal Normal Blood Pressure - L jose 119/68 Blood Pressure - S itting 116/70 Blood Pressure- St anding 121/94 Blood Pressure Blood Pressure [Ri ght Arm] 135/68 96/71 L Blood Pressure Terra n Blood Pressure Terra n [Right Arm] 90 79 Blood Pressure Pos ition Blood Pressure Pos ition [Right Arm] Lying Lying Pulse Oximetry 98 100 Oxygen Delivery Me thod Room Air Room Air Sepsis Recent Feve r Within 48 Hours Sepsis New/Unexpla ined Change in Men kim Status Sepsis Action Take n by Nursing 06/20/24 22:51 Temperature Temperature Source Pulse Rate - Lying Pulse Rate - Sitti ng Pulse Rate - Stand ing Pulse Rate 68 Pulse Rate [Finger ] Pulse Rate from Sp O2 Sensor Pulse Rhythm Pulse Rhythm [Fing er] Pulse Strength [Fi nger] Respiratory Rate Respiratory Effort / Characteristics Respiratory Depth Blood Pressure - L jose Blood Pressure - S itting Blood Pressure- St anding Blood Pressure Blood Pressure [Ri ght Arm] Blood Pressure Terra n Blood Pressure Terra n [Right Arm] Blood Pressure Pos ition Blood Pressure Pos ition [Right Arm] Pulse Oximetry Oxygen Delivery Me thod Sepsis Recent Feve r Within 48 Hours Sepsis New/Unexpla ined Change in Men kim Status Sepsis Action Take n by Nursing Physical Exam: Physical Exam GENERAL: oriented to person, place, and time. appears well-developed and well- nourished. She does not appear distressed. HENT: Exam performed. -Head: Normocephalic and atraumatic. -Right Ear: External ear normal. No mastoid erythema -Left Ear: External ear normal. No mastoid erythema -Mouth/Throat: The oropharynx is clear and moist. No trismus in the jaw. No dental abscesses or uvula swelling. No oropharyngeal exudate or tonsillar abscesses. EYES: Conjunctivae and EOM are normal.Right eye exhibits no discharge. Left eye exhibits no discharge. No scleral icterus. NECK: Normal range of motion. Neck supple. No JVD present. No tracheal deviation and normal range of motion present. CV: Normal rate, regular rhythm, normal heart sounds and intact distal pulses. There is no peripheral edema. Palpable radial pulses bue. PULM/CHEST: Effort normal and breath sounds normal. No respiratory distress. No stridor. no wheezes.no rales. -Chest Wall: no tenderness to palpation ABD: The abdomen is soft. Bowel sounds are normal. no distension. No mass is present. There is tenderness to palpation left lower quadrant. There is no rebound, no guarding, no Fernandez's sign and no tenderness at McBurney's point. Rovsig negative Rectal: Melanotic stool. Hemoccult positive. MUSC/SKEL: Normal range of motion. There is no peripheral edema, tenderness or deformity. NEURO: Motor and sensation grossly intact. SKIN: Skin is warm and dry. not diaphoretic. PSYCH: normal mood and affect. Behavior is normal. Judgment and thought content normal. Course Course 1910: The patient was evaluated in room A10. A complete history and physical exam was performed Cardiac monitoring: An order was placed for continuous cardiac monitoring. The monitor shows a rate of 70 with sinus rhythm interpreted by me 2327: Vital signs stable. Labs are unremarkable. Imaging shows a dilated appendix tip but no inflammatory changes. Thickening of the rectal wall. Small hiatal hernia. [facility] Patient reports he has never had a colonoscopy. Administered Medications Pantoprazole Sodium 40 mg/ (Dextrose) 100 mls @ 20 mls/hr IV Q5H LY Stop: 07/20/24 19:44 Last Admin: 06/20/24 20:35 Dose: 8 mg/hr, 20 mls/hr Documented By: JAY Discontinued Medications Pantoprazole Sodium 80 mg/ (Dextrose) 120 mls @ 480 mls/hr IV NOW ONE Stop: 06/20/24 19:37 Last Infusion: 06/20/24 20:35 Dose: Infused Documented By: Admin: 06/20/24 20:14 Dose: 480 mls/hr Documented By: JAY Ioversol (Optiray 320 100ml) 93 ml IV ONCE ONE Stop: 06/20/24 21:06 Last Admin: 06/20/24 21:05 Dose: 93 ml Documented By: KENNEDY Pantoprazole Sodium (Pantoprazole Bolus/Drip) 1 each IV NOW STA Stop: 06/20/24 19:24 Last Admin: 06/20/24 20:14 Dose: Not Given Documented By: JAY Medical Decision Making Laboratory Data Attestation: I reviewed the patient's lab results. 06/20/24 19:05 06/20/24 20:14 Lab Results 06/20/24 06/20/24 Range/Units 19:05 20:14 WBC 9.24 (4.8-10.8) K/ul RBC 5.06 (4.70-6.10) M/uL Hgb 15.8 (14.0-18.0) g/dl Hct 46.1 (42.0-52.0) % MCV 91.1 (80.0-100.0) fL MCH 31.2 (25.0-34.0) pg MCHC 34.3 (32.0-36.0) g/dL RDW Std Deviation 42.5 (36.4-46.3) fL RDW Coeff of Vicki 12.8 (11.5-14.5) % Plt Count 142 (130-400) K/uL MPV 12.0 (9.4-12.4) fL PT 10.8 (9.0-12.0) Seconds INR 1.0 (0.9-1.1) APTT 21 (21-31) Seconds PTT Ratio 0.8 Sodium 139 (136-145) mmol/L Potassium TNP 3.6 Chloride 104 (98-107) mmol/L Carbon Dioxide 26 (21-32) mmol/L Anion Gap 9 (3-11) BUN 21 (6-23) mg/dl Creatinine 1.09 (0.6-1.4) mg/dl Est Cr Clr Drug Dosing 55.6 ml/min eGFR 67.76 BUN/Creatinine Ratio 19.3 (10-20) Glucose 120 H (70-99(Fasting)) mg/dl Calcium 9.9 (8.6-10.3) mg/dl Magnesium 2.0 (1.7-2.4) mg/dl Total Bilirubin 1.3 H (0.2-1.0) mg/dl AST TNP 15 ALT 13 (7-52) U/L Alkaline Phosphatase 86 (34-104) U/L Troponin I High Sens 8.3 (0-20) pg/ml Total Protein 7.9 (6.0-8.3) gm/dl Albumin 4.6 (3.4-5.0) gm/dl Globulin 3.3 (2.5-4.0) gm/dl Albumin/Globulin Ratio 1.4 (0.9-2) Blood Type A Negative Antibody Screen NEGATIVE Imaging Data Radiologist's Impression: Abdomen/Pelvis CT 06/20/24 19:23 Exam(s): CT ABDOMEN + PELVIS With Contrast IV Amt: 93ml optiray 320 EXAM: CT Abdomen and Pelvis With Intravenous Contrast CLINICAL HISTORY: Reason for exam: LLQ pain. TECHNIQUE: Axial computed tomography images of the abdomen and pelvis with intravenous contrast. CTDI is 26 mGy and DLP is 1367.19 mGy-cm. Automated exposure control was utilized for the study. A dose lowering technique was utilized adhering to the principles of ALARA. CONTRAST: Patient received 93ml optiray 320 of IV contrast COMPARISON: 03/07/2015. FINDINGS: Lung bases: No consolidation. ABDOMEN: Liver: There are 2 rounded lucencies within the left lobe of the liver measuring 0.6 and 1.1 cm in size. Gallbladder and bile ducts: . The patient is status post cholecystectomy.. No ductal dilation. Pancreas: No mass. No ductal dilation. Spleen: No splenomegaly. Adrenals: The left adrenal gland is unremarkable. There is a 1 cm nodule in the right adrenal gland. Kidneys and ureters: No evidence of right renal calculi or hydronephrosis. There are multiple left renal calculi. There is some dilatation of the left renal pelvis. No hydroureter is noted.. Stomach and bowel: There is a small hiatal hernia. The stomach is relatively decompressed. There is air and stool noted in the colon. There are diverticula present on the colon. No significant inflammatory changes are seen. There may be thickening of the wall of the rectum.. PELVIS: Appendix: There is some dilatation of the appendiceal tip with a 6 mm low-density structure (series 2, image 65). No inflammatory changes are seen. Bladder: No calculi are noted within the bladder.. Reproductive: Unremarkable as visualized. ABDOMEN and PELVIS: Intraperitoneal space: No free air. No significant fluid collection. Bones/joints: There is a scoliosis of the spine with degenerative changes.. Soft tissues: Unremarkable. Vasculature: No abdominal aortic aneurysm. Lymph nodes: No enlarged lymph nodes. IMPRESSION: Diverticulosis. There may be thickening of the wall of the rectum. This may be due to under distention. Cannot exclude proctitis. There is a small hiatal hernia. There are multiple left renal calculi. There are some dilatation of the left renal pelvis. No obstructing calculus is noted. This may represent a partial UPJ obstruction. Small rounded lucencies within the liver may represent cysts. A 1 cm nodule in the right adrenal gland may represent an adenoma There is a possible 6 mm mucocele within the appendiceal tip. Electronically signed by: Willam Chapa MD 06/20/24 23:22 PM ECG Data Attestation: I personally reviewed and interpreted this ECG as follows: Rate (beats per minute): 76 Rhythm: normal sinus Findings: + RBBB; no ST depression, no ST elevation or no prolonged QT MDM Narrative 1911: The patient was evaluated in room A10. A complete history and physical exam was performed Cardiac monitoring: An order was placed for continuous cardiac monitoring. The monitor shows a rate of 70 with sinus rhythm interpreted by me 2327: Vital signs stable. Labs are unremarkable. Imaging shows a dilated appendix tip but no inflammatory changes. Thickening of the rectal wall. Small hiatal hernia. [facility] Patient reports he has never had a colonoscopy. Impression & Plan GIB (gastrointestinal bleeding) Discharge Plan Visit Data Chief Complaint: GI Bleed Stated Complaint: VOMIT, DIARRHEA, CHILLS ED Provider: Brian Menjivar Discharge Problem: GIB (gastrointestinal bleeding) Patient Disposition: Admitted As Inpatient Forms Stand Alone Forms: My [facility] Prescriptions Prescriptions: No Action furosemide 40 mg tablet 40 mg PO DAILY potassium chloride 20 mEq tablet,ER particles/crystals 20 meq PO DAILY levothyroxine 50 mcg tablet 50 mcg PO DAILY simvastatin 20 mg tablet 20 mg PO DAILY sertraline 50 mg tablet 50 mg PO DAILY Eliquis 5 mg (74 tabs) tablets,dose pack 5 mg PO Q12H Qty: 74 0RF Rx Instructions: 10 mg twice a day for 9 days, then 5 mg twice a day Referrals Referrals: Adán Fink MD [Primary Care Provider] -
--- NOTE | 2024-06-20 23:23 | CT Scan Report ---
Exam(s): CT ABDOMEN + PELVIS With Contrast IV Amt: 93ml optiray 320 EXAM: CT Abdomen and Pelvis With Intravenous Contrast CLINICAL HISTORY: Reason for exam: LLQ pain. TECHNIQUE: Axial computed tomography images of the abdomen and pelvis with intravenous contrast. CTDI is 26 mGy and DLP is 1367.19 mGy-cm. Automated exposure control was utilized for the study. A dose lowering technique was utilized adhering to the principles of ALARA. CONTRAST: Patient received 93ml optiray 320 of IV contrast COMPARISON: 03/07/2015. FINDINGS: Lung bases: No consolidation. ABDOMEN: Liver: There are 2 rounded lucencies within the left lobe of the liver measuring 0.6 and 1.1 cm in size. Gallbladder and bile ducts: . The patient is status post cholecystectomy.. No ductal dilation. Pancreas: No mass. No ductal dilation. Spleen: No splenomegaly. Adrenals: The left adrenal gland is unremarkable. There is a 1 cm nodule in the right adrenal gland. Kidneys and ureters: No evidence of right renal calculi or hydronephrosis. There are multiple left renal calculi. There is some dilatation of the left renal pelvis. No hydroureter is noted.. Stomach and bowel: There is a small hiatal hernia. The stomach is relatively decompressed. There is air and stool noted in the colon. There are diverticula present on the colon. No significant inflammatory changes are seen. There may be thickening of the wall of the rectum.. PELVIS: Appendix: There is some dilatation of the appendiceal tip with a 6 mm low-density structure (series 2, image 65). No inflammatory changes are seen. Bladder: No calculi are noted within the bladder.. Reproductive: Unremarkable as visualized. ABDOMEN and PELVIS: Intraperitoneal space: No free air. No significant fluid collection. Bones/joints: There is a scoliosis of the spine with degenerative changes.. Soft tissues: Unremarkable. Vasculature: No abdominal aortic aneurysm. Lymph nodes: No enlarged lymph nodes. IMPRESSION: Diverticulosis. There may be thickening of the wall of the rectum. This may be due to under distention. Cannot exclude proctitis. There is a small hiatal hernia. There are multiple left renal calculi. There are some dilatation of the left renal pelvis. No obstructing calculus is noted. This may represent a partial UPJ obstruction. Small rounded lucencies within the liver may represent cysts. A 1 cm nodule in the right adrenal gland may represent an adenoma There is a possible 6 mm mucocele within the appendiceal tip. Electronically signed by: Willam Chapa MD 06/20/24 23:22 PM
[2024-06-21] MEDS ORDERED: ACETAMINOPHEN 325 MG TAB PO PRN (04:58)
[2024-06-21] MEDS ORDERED: NITROGLYCERIN SL 0.4 MG/TAB TAB SL PRN (04:58)
[2024-06-21] MEDS: SODIUM CHLORIDE 0.9% 1,000 ML IV SCH (05:57)
[2024-06-21] MEDS: LEVOTHYROXINE SODIUM 50 MCG TABLET PO SCH (06:13)
[2024-06-21 07:23] LABS: Basophils # (auto) 0.05 K/uL (0.00-0.20); Basophils % (auto) 0.6 %; Eosinophils # (auto) 0.09 K/uL (0.00-0.50); Eosinophils % (auto) 1.1 %; Hematocrit (blood only) 38.1 % (42.0-52.0); Hemoglobin 12.9 g/dl (14.0-18.0); Immature Granulocytes # (auto) 0.03 K/uL (0.01-0.20); Immature Granulocytes % (auto) 0.4 %; Mean Corpuscular Hemoglobin 30.8 pg (25.0-34.0); Mean Corpuscular Hgb Conc 33.9 g/dL (32.0-36.0); Mean Corpuscular Volume 90.9 fL (80.0-100.0); Mean Platelet Volume 12.1 fL (9.4-12.4); Monocytes # (auto) 0.77 K/uL (0.11-0.59); Monocytes % (auto) 9.6 %; Neutrophils # (auto) 4.67 K/uL (1.40-6.50); Neutrophils % (auto) 58.3 %; Platelet Count 154 K/uL (130-400); RDW Standard Deviation 42.8 fL (36.4-46.3); Red Blood Count 4.19 M/uL (4.70-6.10); White Blood Count 8.01 K/ul (4.8-10.8)
[2024-06-21 07:32] LABS: BUN Creatinine Ratio 16.3 (10-20); Calcium 8.8 mg/dl (8.6-10.3); Creatinine Clr Calc Pharmacy 58.3 ml/min; Magnesium 1.9 mg/dl (1.7-2.4); Potassium 3.5 mmol/L (3.5-5.1)
--- NOTE | 2024-06-21 08:19 | History & Physical Report ---
Date of Service June 21, 2024 Assessment & Plan (1) GIB (gastrointestinal bleeding): Plan: 84-year-old male with past medical history significant for hyperlipidemia, hypothyroidism, mild intermittent asthma, right bundle branch block, B12 deficiency, GERD, chronic back pain, restless leg syndrome, history of depression who recently in April was admitted for acute right lower extremity DVT, acute diastolic CHF and right lower extremity cellulitis and was treated with IV Lasix and IV Rocephin and was discharged on Keflex and Eliquis comes because of 2 days of black stools. Denies any abdominal pain. Denies any fevers. Micturating okay. Denies any chest pain or shortness of breath. No cough. No fevers. No headache. Current resting comfortably and hemodynamically stable. Gastrointestinal bleeding Melena for 2 days Hemoglobin stable at 15.8 Will hold Eliquis H&H every 6 hours Blood consent obtained N.p.o. Gentle fluids Telemetry GI consult Recent right lower extremity DVT Holding Eliquis for GI bleed Vascular surgery consult for a possible IVC filter Chronic diastolic CHF Continue home Lasix Monitor for volume overload Hypothyroidism On Synthyroid Depression On Zoloft DVT prophylaxis SCDs Disposition Telemetry Full code. Admission and Anticipated Discharge Date Admission Date: June 21, 2024 History of Present Illness Chief Complaint: Melena Primary Care Provider: Adán Fink MD 84-year-old male with past medical history significant for hyperlipidemia, hypothyroidism, mild intermittent asthma, right bundle branch block, B12 deficiency, GERD, chronic back pain, restless leg syndrome, history of depression who recently in April was admitted for acute right lower extremity DVT, acute diastolic CHF and right lower extremity cellulitis and was treated with IV Lasix and IV Rocephin and was discharged on Keflex and Eliquis comes because of 2 days of black stools. Denies any abdominal pain. Denies any fevers. Micturating okay. Denies any chest pain or shortness of breath. No cough. No fevers. No headache. Current resting comfortably and hemodynamically stable. Past medical history. As mentioned above Past surgical history. Cystoscopy. Cystoscopy with insertion of stent. Cystourethroscopy with lithotripsy. Laparoscopic assisted tongue. Left cataracts. Social history. . No smoking. No alcohol. No drug use Family history. Sister has lung cancer. Brother has MS. Sister has MS. Mother had MS. Allergies Allergy/AdvReac Type Severity Reaction Status Date / Time No Known Allergies Allergy Unverified 08/24/09 14:15 Home Medications Medication Instructions Recorded Confirmed Type furosemide 40 mg tablet 40 mg PO DAILY 04/29/24 06/20/24 History levothyroxine 50 mcg tablet 50 mcg PO DAILY 04/29/24 06/20/24 History potassium chloride 20 mEq 20 meq PO DAILY 04/29/24 06/20/24 History tablet,extended release(part/cryst) sertraline 50 mg tablet 50 mg PO DAILY 04/29/24 06/20/24 History simvastatin 20 mg tablet 20 mg PO DAILY 04/29/24 06/20/24 History apixaban 5 mg (74 tabs) tablets in 5 mg PO Q12H #74 ea 05/02/24 06/20/24 Rx a dose pack (Eliquis) Past Med/Surg History Problem List (Updated 06/20/24 @ 23:29 by Brian Menjivar MD) GIB (gastrointestinal bleeding) (Acute) Edema Venous insufficiency Cellulitis DVT (deep venous thrombosis) (Acute) Pleuritic chest pain (Acute) Right leg swelling (Acute) Bronchitis (Acute) Pleuritic chest pain (Acute) Bronchitis (Acute) Acute cholecystitis (Acute) Dyslipidemia (Chronic) History of renal calculi (Chronic) Asthma (Chronic) Social History Smoking Status: Never smoker Hx Alcohol Use: No Hx Substance Use: No Preferred Language: Japanese Communication Ability: Effective Special Education Director Required: No Beliefs That Will Affect Care: None Current Living Situation: Alone Other Information That Helps Us Care for You: No Feels Safe at Home: Yes Safety Concerns: Feels Safe At This Time Assistive Devices: Denture - Upper and Glasses Review of Systems Review of Systems: All systems reviewed & are unremarkable except as noted in HPI & below Physical Exam Physical Exam: General- Not in distress Head- atraumatic Eyes- PERRL. ENT- oropharynx clear Neck- supple, no JVD. Lungs- clear to auscultation no wheezing or crackles Heart- regular rate and rhythm; no murmur, no gallop. Abdomen- normal bowel sounds, soft, nontender, no distension Extremities- no pretibial edema, no erythema seen Neuro- alert, oriented PERRL,no facial palsy; no dysarthria; moves extremities Results & Data Results & Data Vital Signs (Past 12 Hours) Vital Signs Temp Pulse Pulse Resp BP BP Pulse Ox 06/21/24 07:17 36.3 C L 74 17 127/77 96 06/21/24 05:27 70 06/21/24 04:58 36.8 C 70 20 127/77 96 06/21/24 04:25 36.7 C 62 17 126/65 98 06/21/24 04:22 17 126/65 98 06/21/24 03:00 67 18 114/71 98 06/21/24 01:20 70 16 111/64 98 06/21/24 01:00 71 18 119/64 99 06/20/24 23:00 61 20 118/64 99 06/20/24 22:51 68 06/20/24 22:00 62 18 96/71 L 100 06/20/24 21:09 69 18 135/68 98 O2 Del Method O2 Flow Rate 06/21/24 07:17 Room Air 06/21/24 05:27 06/21/24 04:58 Room Air 06/21/24 04:25 Nasal Cannula 2 06/21/24 04:22 Nasal Cannula 2 06/21/24 03:00 Nasal Cannula 2 06/21/24 01:20 Room Air 06/21/24 01:00 Nasal Cannula 2 06/20/24 23:00 Room Air 06/20/24 22:51 06/20/24 22:00 Room Air 06/20/24 21:09 Room Air Diagnostic Findings Laboratory Results WBC 8.01 K/ul (4.8-10.8) 06/21/24 06:39 RBC 4.19 M/uL (4.70-6.10) L 06/21/24 06:39 Hgb 12.9 g/dl (14.0-18.0) L D 06/21/24 06:39 Hct 38.1 % (42.0-52.0) L 06/21/24 06:39 MCV 90.9 fL (80.0-100.0) 06/21/24 06:39 MCH 30.8 pg (25.0-34.0) 06/21/24 06:39 MCHC 33.9 g/dL (32.0-36.0) 06/21/24 06:39 RDW Std Deviation 42.8 fL (36.4-46.3) 06/21/24 06:39 RDW Coeff of Vicki 13.0 % (11.5-14.5) 06/21/24 06:39 Plt Count 154 K/uL (130-400) 06/21/24 06:39 MPV 12.1 fL (9.4-12.4) 06/21/24 06:39 Immature Gran % (Auto) 0.4 % 06/21/24 06:39 Neut % (Auto) 58.3 % 06/21/24 06:39 Lymph % (Auto) 30.0 % 06/21/24 06:39 Bowman % (Auto) 9.6 % 06/21/24 06:39 Eos % (Auto) 1.1 % 06/21/24 06:39 Baso % (Auto) 0.6 % 06/21/24 06:39 Neut # (Auto) 4.67 K/uL (1.40-6.50) 06/21/24 06:39 Lymph # (Auto) 2.40 K/uL (1.20-3.40) 06/21/24 06:39 Bowman # (Auto) 0.77 K/uL (0.11-0.59) H 06/21/24 06:39 Eos # (Auto) 0.09 K/uL (0.00-0.50) 06/21/24 06:39 Baso # (Auto) 0.05 K/uL (0.00-0.20) 06/21/24 06:39 Immature Gran # (Auto) 0.03 K/uL (0.01-0.20) 06/21/24 06:39 PT 10.8 Seconds (9.0-12.0) 06/20/24 19:05 INR 1.0 (0.9-1.1) 06/20/24 19:05 APTT 21 Seconds (21-31) 06/20/24 19:05 PTT Ratio 0.8 06/20/24 19:05 Sodium 141 mmol/L (136-145) 06/21/24 06:39 Potassium 3.5 mmol/L (3.5-5.1) 06/21/24 06:39 Chloride 107 mmol/L (98-107) 06/21/24 06:39 Carbon Dioxide 27 mmol/L (21-32) 06/21/24 06:39 Anion Gap 7 (3-11) 06/21/24 06:39 BUN 17 mg/dl (6-23) 06/21/24 06:39 Creatinine 1.04 mg/dl (0.6-1.4) 06/21/24 06:39 Est Cr Clr Drug Dosing 58.3 ml/min 06/21/24 06:39 eGFR 71.69 06/21/24 06:39 BUN/Creatinine Ratio 16.3 (10-20) 06/21/24 06:39 Glucose 96 mg/dl (70-99(Fasting)) 06/21/24 06:39 Calcium 8.8 mg/dl (8.6-10.3) 06/21/24 06:39 Magnesium 1.9 mg/dl (1.7-2.4) 06/21/24 06:39 Total Bilirubin 1.3 mg/dl (0.2-1.0) H 06/20/24 19:05 AST 15 U/L (13-39) 06/20/24 20:14 ALT 13 U/L (7-52) 06/20/24 19:05 Alkaline Phosphatase 86 U/L (34-104) 06/20/24 19:05 Troponin I High Sens 8.3 pg/ml (0-20) 06/20/24 19:05 Total Protein 7.9 gm/dl (6.0-8.3) 06/20/24 19:05 Albumin 4.6 gm/dl (3.4-5.0) 06/20/24 19:05 Globulin 3.3 gm/dl (2.5-4.0) 06/20/24 19:05 Albumin/Globulin Ratio 1.4 (0.9-2) 06/20/24 19:05 Blood Type A Negative 06/20/24 19:05 Antibody Screen NEGATIVE 06/20/24 19:05 Impressions Abdomen/Pelvis CT 06/20/24 19:23 Exam(s): CT ABDOMEN + PELVIS With Contrast IV Amt: 93ml optiray 320 EXAM: CT Abdomen and Pelvis With Intravenous Contrast CLINICAL HISTORY: Reason for exam: LLQ pain. TECHNIQUE: Axial computed tomography images of the abdomen and pelvis with intravenous contrast. CTDI is 26 mGy and DLP is 1367.19 mGy-cm. Automated exposure control was utilized for the study. A dose lowering technique was utilized adhering to the principles of ALARA. CONTRAST: Patient received 93ml optiray 320 of IV contrast COMPARISON: 03/07/2015. FINDINGS: Lung bases: No consolidation. ABDOMEN: Liver: There are 2 rounded lucencies within the left lobe of the liver measuring 0.6 and 1.1 cm in size. Gallbladder and bile ducts: . The patient is status post cholecystectomy.. No ductal dilation. Pancreas: No mass. No ductal dilation. Spleen: No splenomegaly. Adrenals: The left adrenal gland is unremarkable. There is a 1 cm nodule in the right adrenal gland. Kidneys and ureters: No evidence of right renal calculi or hydronephrosis. There are multiple left renal calculi. There is some dilatation of the left renal pelvis. No hydroureter is noted.. Stomach and bowel: There is a small hiatal hernia. The stomach is relatively decompressed. There is air and stool noted in the colon. There are diverticula present on the colon. No significant inflammatory changes are seen. There may be thickening of the wall of the rectum.. PELVIS: Appendix: There is some dilatation of the appendiceal tip with a 6 mm low-density structure (series 2, image 65). No inflammatory changes are seen. Bladder: No calculi are noted within the bladder.. Reproductive: Unremarkable as visualized. ABDOMEN and PELVIS: Intraperitoneal space: No free air. No significant fluid collection. Bones/joints: There is a scoliosis of the spine with degenerative changes.. Soft tissues: Unremarkable. Vasculature: No abdominal aortic aneurysm. Lymph nodes: No enlarged lymph nodes. IMPRESSION: Diverticulosis. There may be thickening of the wall of the rectum. This may be due to under distention. Cannot exclude proctitis. There is a small hiatal hernia. There are multiple left renal calculi. There are some dilatation of the left renal pelvis. No obstructing calculus is noted. This may represent a partial UPJ obstruction. Small rounded lucencies within the liver may represent cysts. A 1 cm nodule in the right adrenal gland may represent an adenoma There is a possible 6 mm mucocele within the appendiceal tip. Electronically signed by: Willam Chapa MD 06/20/24 23:22 PM ECG Additional Comments: EG. Normal sinus rhythm rate 76. Right bundle branch block. No significant change was found. Code Status & VTE Plan VTE Prophylaxis Plan VTE Prophylaxis will be ordered: Yes
--- NOTE | 2024-06-21 08:51 | Electrocardiogram Report ---
Test Reason : Blood Pressure : */* mmHG Vent. Rate : 76 BPM Atrial Rate : 76 BPM P-R Int : 144 ms QRS Dur : 124 ms QT Int : 406 ms P-R-T Axes : 59 98 19 degrees QTcB Int : 456 ms Normal sinus rhythm Right bundle branch block Abnormal ECG When compared with ECG of 01-May-2024 06:28, No significant change was found Confirmed by Jarrod Alex ([id number]) on 06/21/2024 8:51:16 AM Referred By: Confirmed By: Jarrod Alex
[2024-06-21] MEDS: SIMVASTATIN 20 MG TAB PO SCH (08:59)
[2024-06-21] MEDS: FUROSEMIDE 40 MG TAB PO SCH (08:59)
[2024-06-21] MEDS: SERTRALINE HCL 50 MG TABLET PO SCH (08:59)
[2024-06-21] MEDS: POTASSIUM CHLORIDE CRTAB 20 MEQ TABCR PO SCH (08:59)
--- NOTE | 2024-06-21 09:09 | Urology Consultation ---
Date of Consultation June 21, 2024 Assessment & Plan (1) Renal stone: (2) Obstruction of left ureteropelvic junction (UPJ): (3) Adrenal nodule: Plan 84-year-old male admitted for a GI bleed due to 2 days of black stools. Labs showed a hemoglobin of 15.8 on admission, creatinine of 1.09. He is currently afebrile with stable vitals. A CT scan of the abdomen pelvis was performed which showed a normal right kidney without hydronephrosis. The left kidney has a fairly significant stone burden in the renal pelvis and collecting systems with what appears to be a transition point that may indicate a UPJ obstruction. 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 Recommended that I see patient in outpatient follow-up to discuss stone treatment versus observation but it sounds like he would like to watch these at this point. Can also discuss whether he wants an adrenal workup at that time No urologic intervention necessary at this time Urology to sign off. A message has been sent to schedule outpatient follow-up History of Present Illness Attending Physician: Leesa Sam MD History of Present Illness 84-year-old male admitted for a GI bleed due to 2 days of black stools. Labs showed a hemoglobin of 15.8 on admission, creatinine of 1.09. He is currently afebrile with stable vitals. A CT scan of the abdomen pelvis was performed w hich showed a normal right kidney without hydronephrosis. The left kidney has a fairly significant stone burden in the renal pelvis and collecting systems with what appears to be a transition point that may indicate a UPJ obstruction. There is a small 1 cm right adrenal nodule that may represent an adenoma Patient denies any flank pain. He does report a history of kidney stones but cannot remember who his urologist was as it was numerous years ago. Denies any urinary symptoms. Allergies Allergy/AdvReac Type Severity Reaction Status Date / Time No Known Allergies Allergy Unverified 08/24/09 14:15 Home Medications Medication Instructions Recorded Confirmed Type furosemide 40 mg tablet 40 mg PO DAILY 04/29/24 06/20/24 History levothyroxine 50 mcg tablet 50 mcg PO DAILY 04/29/24 06/20/24 History potassium chloride 20 mEq 20 meq PO DAILY 04/29/24 06/20/24 History tablet,extended release(part/cryst) sertraline 50 mg tablet 50 mg PO DAILY 04/29/24 06/20/24 History simvastatin 20 mg tablet 20 mg PO DAILY 04/29/24 06/20/24 History apixaban 5 mg (74 tabs) tablets in 5 mg PO Q12H #74 ea 05/02/24 06/20/24 Rx a dose pack (Eliquis) Patient History Social History Smoking Status: Never smoker Hx Alcohol Use: No Hx Substance Use: No Preferred Language: Yi Communication Ability: Effective Sander Machine Required: No Beliefs That Will Affect Care: None Current Living Situation: Alone Other Information That Helps Us Care for You: No Feels Safe at Home: Yes Safety Concerns: Feels Safe At This Time Assistive Devices: Denture - Upper and Glasses Physical Exam Physical Exam: General: Alert and oriented, no acute distress HEENT: Normocephalic, mucous membranes moist Pulmonary: Nonlabored respirations Abdomen: Nondistended Extremities: Moves all 4 spontaneously Neuro: No gross deficits Skin: Warm, dry, no rashes noted Results & Data Vital Signs (Past 12 Hours) Vital Signs Temp Pulse Pulse Resp BP BP Pulse Ox 06/21/24 07:17 36.3 C L 74 17 127/77 96 06/21/24 05:27 70 06/21/24 04:58 36.8 C 70 20 127/77 96 06/21/24 04:25 36.7 C 62 17 126/65 98 06/21/24 04:22 17 126/65 98 06/21/24 03:00 67 18 114/71 98 06/21/24 01:20 70 16 111/64 98 06/21/24 01:00 71 18 119/64 99 06/20/24 23:00 61 20 118/64 99 06/20/24 22:51 68 06/20/24 22:00 62 18 96/71 L 100 06/20/24 21:09 69 18 135/68 98 O2 Del Method O2 Flow Rate 06/21/24 07:17 Room Air 06/21/24 05:27 06/21/24 04:58 Room Air 12/07/24 04:25 Nasal Cannula 2 06/21/24 04:22 Nasal Cannula 2 06/21/24 03:00 Nasal Cannula 2 06/21/24 01:20 Room Air 06/21/24 01:00 Nasal Cannula 2 06/20/24 23:00 Room Air 06/20/24 22:51 06/20/24 22:00 Room Air 06/20/24 21:09 Room Air PG Care Time/CCT Total # of Minutes Spent Total Time Spent with Patient: Total time spent is greater than 50% in coordination of care (as documented) at patient's floor/unit and/or counseling patient: Coding Level of Care Code 72532 INT INP/OBS CARE MIN Diagnoses Renal stone N20.0 Obstruction of left ureteropelvic junction (UPJ) N13.5 Adrenal nodule E27.9
--- NOTE | 2024-06-21 09:22 | Hospitalist Progress Note ---
Date of Service June 21, 2024 Assessment & Plan (1) Acute upper GI bleed: Plan: Patient has remained clinically and hemodynamically stable, H&H showed very minimal drop only, currently on Protonix infusion, await input by gastroenterology, monitor H&H and transfuse as needed. This could be due to anticoagulation itself although we do not know if he had any prior upper GI pathologies so this warrants EGD. Continue keeping him NPO. (2) Hypothyroidism, acquired: Plan: May resume Synthroid 50 mcg daily after patient is allowed to take p.o., unclear if EGD can be arranged over the weekend. (3) Hyperlipidemia: Plan: Continue with simvastatin 20 mg daily once patient is allowed to take p.o., again I am unaware if EGD is arranged over the weekend. (4) Renal stone: Plan: Patient on CT of the abdomen was found to have multiple left renal calculi with some dilation of the left renal pelvis, there was no actual obstruction and no reported hydronephrosis however there was a suggestion of partial UPJ obstruction, urology is on consult, await recommendation, kidney function is normal and urine output is adequate. Plan Continue with heparin infusion, monitor H&H closely and transfuse as needed, await input by gastroenterology for EGD. Await input by urology as well. Admission and Anticipated Discharge Date Admission Date: June 21, 2024 Subjective Patient is an 84-year-old gentleman with history of hyperlipidemia, hypothyroidism, right bundle branch block, restless leg syndrome who developed extensive right lower extremity DVT back in April 2024, patient was then started on Eliquis. Patient comes in with 3 days of melanotic stool. Patient was started on Protonix infusion and gastroenterology was consulted. He has a hemoglobin and hematocrit remained stable overnight with very minimal drop. Patient was seen and examined, clinically stable. Possible differential diagnosis of his condition was explained. Physical Exam Physical Exam: VITALS: Reviewed. WEIGHT/BMI reviewed. GEN: Healthy appearing, well-developed, NAD. NECK: Supple, with no masses. CV: RRR, no m/r/g. LUNGS: CTAB, no w/r/c. ABD: Soft, NT/ND, NBS, no masses or organomegaly. : N/A Results & Data Results & Data Vital Signs (Past 12 Hours) Vital Signs Temp Pulse Pulse Resp BP BP Pulse Ox 06/21/24 07:17 36.3 C L 74 17 127/77 96 06/21/24 05:27 70 06/21/24 04:58 36.8 C 70 20 127/77 96 06/21/24 04:25 36.7 C 62 17 126/65 98 06/21/24 04:22 17 126/65 98 06/21/24 03:00 67 18 114/71 98 06/21/24 01:20 70 16 111/64 98 06/21/24 01:00 71 18 119/64 99 06/20/24 23:00 61 20 118/64 99 06/20/24 22:51 68 06/20/24 22:00 62 18 96/71 L 100 O2 Del Method O2 Flow Rate 06/21/24 07:17 Room Air 06/21/24 05:27 06/21/24 04:58 Room Air 06/21/24 04:25 Nasal Cannula 2 06/21/24 04:22 Nasal Cannula 2 06/21/24 03:00 Nasal Cannula 2 06/21/24 01:20 Room Air 06/21/24 01:00 Nasal Cannula 2 06/20/24 23:00 Room Air 06/20/24 22:51 06/20/24 22:00 Room Air Laboratory Results Laboratory Results - last 24 hr 06/20/24 06/20/24 06/21/24 19:05 20:14 06:39 WBC 9.24 8.01 RBC 5.06 4.19 L Hgb 15.8 12.9 L D Hct 46.1 38.1 L MCV 91.1 90.9 MCH 31.2 30.8 MCHC 34.3 33.9 RDW Std Deviation 42.5 42.8 RDW Coeff of Vicki 12.8 13.0 Plt Count 142 154 MPV 12.0 12.1 Immature Gran % (Auto) 0.4 Neut % (Auto) 58.3 Lymph % (Auto) 30.0 Summers % (Auto) 9.6 Eos % (Auto) 1.1 Baso % (Auto) 0.6 Neut # (Auto) 4.67 Lymph # (Auto) 2.40 Summers # (Auto) 0.77 H Eos # (Auto) 0.09 Baso # (Auto) 0.05 Immature Gran # (Auto) 0.03 PT 10.8 INR 1.0 APTT 21 PTT Ratio 0.8 Sodium 139 141 Potassium TNP 3.6 3.5 Chloride 104 107 Carbon Dioxide 26 27 Anion Gap 9 7 BUN 21 17 Creatinine 1.09 1.04 Est Cr Clr Drug Dosing 55.6 58.3 eGFR 67.76 71.69 BUN/Creatinine Ratio 19.3 16.3 Glucose 120 H 96 Calcium 9.9 8.8 Magnesium 2.0 1.9 Total Bilirubin 1.3 H AST TNP 15 ALT 13 Alkaline Phosphatase 86 Troponin I High Sens 8.3 Total Protein 7.9 Albumin 4.6 Globulin 3.3 Albumin/Globulin Ratio 1.4 Blood Type A Negative Antibody Screen NEGATIVE Diagnostic Findings Abdomen/Pelvis CT 06/20/24 19:23 Exam(s): CT ABDOMEN + PELVIS With Contrast IV Amt: 93ml optiray 320 EXAM: CT Abdomen and Pelvis With Intravenous Contrast CLINICAL HISTORY: Reason for exam: LLQ pain. TECHNIQUE: Axial computed tomography images of the abdomen and pelvis with intravenous contrast. CTDI is 26 mGy and DLP is 1367.19 mGy-cm. Automated exposure control was utilized for the study. A dose lowering technique was utilized adhering to the principles of ALARA. CONTRAST: Patient received 93ml optiray 320 of IV contrast COMPARISON: 03/07/2015. FINDINGS: Lung bases: No consolidation. ABDOMEN: Liver: There are 2 rounded lucencies within the left lobe of the liver measuring 0.6 and 1.1 cm in size. Gallbladder and bile ducts: . The patient is status post cholecystectomy.. No ductal dilation. Pancreas: No mass. No ductal dilation. Spleen: No splenomegaly. Adrenals: The left adrenal gland is unremarkable. There is a 1 cm nodule in the right adrenal gland. Kidneys and ureters: No evidence of right renal calculi or hydronephrosis. There are multiple left renal calculi. There is some dilatation of the left renal pelvis. No hydroureter is noted.. Stomach and bowel: There is a small hiatal hernia. The stomach is relatively decompressed. There is air and stool noted in the colon. There are diverticula present on the colon. No significant inflammatory changes are seen. There may be thickening of the wall of the rectum.. PELVIS: Appendix: There is some dilatation of the appendiceal tip with a 6 mm low-density structure (series 2, image 65). No inflammatory changes are seen. Bladder: No calculi are noted within the bladder.. Reproductive: Unremarkable as visualized. ABDOMEN and PELVIS: Intraperitoneal space: No free air. No significant fluid collection. Bones/joints: There is a scoliosis of the spine with degenerative changes.. Soft tissues: Unremarkable. Vasculature: No abdominal aortic aneurysm. Lymph nodes: No enlarged lymph nodes. IMPRESSION: Diverticulosis. There may be thickening of the wall of the rectum. This may be due to under distention. Cannot exclude proctitis. There is a small hiatal hernia. There are multiple left renal calculi. There are some dilatation of the left renal pelvis. No obstructing calculus is noted. This may represent a partial UPJ obstruction. Small rounded lucencies within the liver may represent cysts. A 1 cm nodule in the right adrenal gland may represent an adenoma There is a possible 6 mm mucocele within the appendiceal tip. Electronically signed by: Willam Chapa MD 06/20/24 23:22 PM Medications Administered Current Inpatient Medications Acetaminophen (Acetaminophen 325 Mg Tab) 650 mg PO Q4H PRN PRN Reason: Pain or Fever Stop: 07/21/24 04:57 Furosemide (Furosemide 40 Mg Tab) 40 mg PO DAILY [facility] Stop: 07/21/24 08:59 Last Admin: 06/21/24 08:59 Dose: 40 mg Pantoprazole Sodium 40 mg/ (Dextrose) 100 mls @ 20 mls/hr IV Q5H LY Stop: 07/20/24 19:44 Last Admin: 06/21/24 06:13 Dose: 8 mg/hr, 20 mls/hr Sodium Chloride (Nss) 1,000 mls @ 80 mls/hr IV .[id number] LY Stop: 06/22/24 04:57 Last Admin: 06/21/24 05:57 Dose: 80 mls/hr Levothyroxine Sodium (Levothyroxine Sodium 50 Mcg Tablet) 50 mcg PO DAILYBB [facility] Stop: 07/21/24 06:29 Last Admin: 06/21/24 06:13 Dose: 50 mcg Nitroglycerin (Nitroglycerin Sl 0.4 Mg/Tab Tab) 0.4 mg SL Q5M PRN PRN Reason: Chest Pain Stop: 07/21/24 04:57 Potassium Chloride (Potassium Chloride Crtab 20 Meq Tabcr) 20 meq PO DAILY LY Stop: 07/21/24 08:59 Last Admin: 06/21/24 08:59 Dose: 20 meq Sertraline HCl (Sertraline Hcl 50 Mg Tablet) 50 mg PO DAILY LY Stop: 07/21/24 08:59 Last Admin: 06/21/24 08:59 Dose: 50 mg Simvastatin (Simvastatin 20 Mg Tab) 20 mg PO DAILY LY Stop: 07/21/24 08:59 Last Admin: 06/21/24 08:59 Dose: 20 mg (3) Hyperlipidemia Hyperlipidemia type: mixed hyperlipidemia Qualified Code(s): E78.2 - Mixed hyperlipidemia
--- NOTE | 2024-06-21 10:34 | Gastrointestinal Consultation ---
Date of Consultation June 21, 2024 Assessment & Plan (1) GIB (gastrointestinal bleeding): Pleasant man with hematemesis and black stools. The fact that he took peptobismol will cloud the picture as far as the significance of the black stools but his stools are occult blood positive. His hemoglobin does show a drop from admit but admit hemoglobin was a lot higher than in the past so may have been from dehydration. His hemoglobin today is about where it usually is. I do think he needs EGD and even colonoscopy but would prefer to let the eliquis wear off since he is stable both symptomatically and from his hemoglobin status. Will watch over night. Will consider EGD and colonoscopy on Sunday but he seems a little hesitant about the procedures. CT shows "thickened rectum" but may be related to underdistension History of Present Illness Reason for Consultation: melena Attending Physician: Leesa Sam MD History of Present Illness 84 year old man who says on Sunday his stomach started feeling funny. He took some peptobismol then but then started vomiting. He says he vomited "a little red stuff" and some black liquid. He vomited a few times and then the vomiting stopped. He also developed diarrhea with black stools. He would go two to three times per day. He denies pain. He denies fever or chills. He does not think he has ever had an EGD or a colonoscopy but he is not certain. His bowel movements have slowed down and he only had a small black one today. Stool is heme (+) though. He is on eliquis for clots Allergies Allergy/AdvReac Type Severity Reaction Status Date / Time No Known Allergies Allergy Unverified 08/24/09 14:15 Home Medications Medication Instructions Recorded Confirmed Type furosemide 40 mg tablet 40 mg PO DAILY 04/29/24 06/20/24 History levothyroxine 50 mcg tablet 50 mcg PO DAILY 04/29/24 06/20/24 History potassium chloride 20 mEq 20 meq PO DAILY 04/29/24 06/20/24 History tablet,extended release(part/cryst) sertraline 50 mg tablet 50 mg PO DAILY 04/29/24 06/20/24 History simvastatin 20 mg tablet 20 mg PO DAILY 04/29/24 06/20/24 History apixaban 5 mg (74 tabs) tablets in 5 mg PO Q12H #74 ea 05/02/24 06/20/24 Rx a dose pack (Eliquis) Patient History Social History Smoking Status: Never smoker Hx Alcohol Use: No Hx Substance Use: No Preferred Language: Burkinan Communication Ability: Effective Pharmaceutical Service Representative Required: No Beliefs That Will Affect Care: None Current Living Situation: Alone Other Information That Helps Us Care for You: No Feels Safe at Home: Yes Safety Concerns: Feels Safe At This Time Assistive Devices: Denture - Upper and Glasses Review of Systems Review of Systems: All systems reviewed & are unremarkable except as noted in HPI & below Physical Exam Physical Exam: Pleasant man who looks well Constitutional: WD/WN, vitals as above Neck: trachea midline, no thyromegaly Respiratory: normal respiratory effort, lungs clear to auscultation Cardiovascular: RRR, no murmur, no edema Gastrointestinal (Abdomen): normal bowel sounds, soft, nontender, no hepatosplenomegaly Results & Data Vital Signs (Past 12 Hours) Vital Signs Temp Pulse Pulse Resp BP BP Pulse Ox 06/21/24 07:17 36.3 C L 74 17 127/77 96 06/21/24 05:27 70 06/21/24 04:58 36.8 C 70 20 127/77 96 06/21/24 04:25 36.7 C 62 17 126/65 98 06/21/24 04:22 17 126/65 98 06/21/24 03:00 67 18 114/71 98 06/21/24 01:20 70 16 111/64 98 06/21/24 01:00 71 18 119/64 99 06/20/24 23:00 61 20 118/64 99 06/20/24 22:51 68 O2 Del Method O2 Flow Rate 06/21/24 07:17 Room Air 06/21/24 05:27 06/21/24 04:58 Room Air 06/21/24 04:25 Nasal Cannula 2 06/21/24 04:22 Nasal Cannula 2 06/21/24 03:00 Nasal Cannula 2 06/21/24 01:20 Room Air 06/21/24 01:00 Nasal Cannula 2 06/20/24 23:00 Room Air 06/20/24 22:51 Laboratory Results 06/21/24 06/21/24 06/21/24 Range/Units 09:31 09:21 06:39 WBC 8.01 (4.8-10.8) K/ul RBC 4.19 L (4.70-6.10) M/uL Hgb 12.9 L D (14.0-18.0) g/dl Hct 38.1 L (42.0-52.0) % MCV 90.9 (80.0-100.0) fL MCH 30.8 (25.0-34.0) pg MCHC 33.9 (32.0-36.0) g/dL RDW Std Deviation 42.8 (36.4-46.3) fL RDW Coeff of Vicki 13.0 (11.5-14.5) % Plt Count 154 (130-400) K/uL MPV 12.1 (9.4-12.4) fL Immature Gran % (Auto) 0.4 % Neut % (Auto) 58.3 % Lymph % (Auto) 30.0 % Taylor % (Auto) 9.6 % Eos % (Auto) 1.1 % Baso % (Auto) 0.6 % Neut # (Auto) 4.67 (1.40-6.50) K/uL Lymph # (Auto) 2.40 (1.20-3.40) K/uL Taylor # (Auto) 0.77 H (0.11-0.59) K/uL Eos # (Auto) 0.09 (0.00-0.50) K/uL Baso # (Auto) 0.05 (0.00-0.20) K/uL Immature Gran # (Auto) 0.03 (0.01-0.20) K/uL PT (9.0-12.0) Seconds INR (0.9-1.1) APTT (21-31) Seconds PTT Ratio Sodium 141 (136-145) mmol/L Potassium 3.5 Chloride 107 (98-107) mmol/L Carbon Dioxide 27 (21-32) mmol/L Anion Gap 7 (3-11) BUN 17 (6-23) mg/dl Creatinine 1.04 (0.6-1.4) mg/dl Est Cr Clr Drug Dosing 58.3 ml/min eGFR 71.69 BUN/Creatinine Ratio 16.3 (10-20) Glucose 96 (70-99(Fasting)) mg/dl Calcium 8.8 (8.6-10.3) mg/dl Magnesium 1.9 (1.7-2.4) mg/dl Total Bilirubin (0.2-1.0) mg/dl AST ALT (7-52) U/L Alkaline Phosphatase (34-104) U/L Troponin I High Sens (0-20) pg/ml Total Protein (6.0-8.3) gm/dl Albumin (3.4-5.0) gm/dl Globulin (2.5-4.0) gm/dl Albumin/Globulin Ratio (0.9-2) Stool Occult Bld Scrn Positive A (Negative) POC Stool Occult Blood Pending Blood Type Antibody Screen 06/20/24 06/20/24 Range/Units 20:14 19:05 WBC 9.24 (4.8-10.8) K/ul RBC 5.06 (4.70-6.10) M/uL Hgb 15.8 (14.0-18.0) g/dl Hct 46.1 (42.0-52.0) % MCV 91.1 (80.0-100.0) fL MCH 31.2 (25.0-34.0) pg MCHC 34.3 (32.0-36.0) g/dL RDW Std Deviation 42.5 (36.4-46.3) fL RDW Coeff of Vicki 12.8 (11.5-14.5) % Plt Count 142 (130-400) K/uL MPV 12.0 (9.4-12.4) fL Immature Gran % (Auto) % Neut % (Auto) % Lymph % (Auto) % Taylor % (Auto) % Eos % (Auto) % Baso % (Auto) % Neut # (Auto) (1.40-6.50) K/uL Lymph # (Auto) (1.20-3.40) K/uL Taylor # (Auto) (0.11-0.59) K/uL Eos # (Auto) (0.00-0.50) K/uL Baso # (Auto) (0.00-0.20) K/uL Immature Gran # (Auto) (0.01-0.20) K/uL PT 10.8 (9.0-12.0) Seconds INR 1.0 (0.9-1.1) APTT 21 (21-31) Seconds PTT Ratio 0.8 Sodium 139 (136-145) mmol/L Potassium 3.6 TNP Chloride 104 (98-107) mmol/L Carbon Dioxide 26 (21-32) mmol/L Anion Gap 9 (3-11) BUN 21 (6-23) mg/dl Creatinine 1.09 (0.6-1.4) mg/dl Est Cr Clr Drug Dosing 55.6 ml/min eGFR 67.76 BUN/Creatinine Ratio 19.3 (10-20) Glucose 120 H (70-99(Fasting)) mg/dl Calcium 9.9 (8.6-10.3) mg/dl Magnesium 2.0 (1.7-2.4) mg/dl Total Bilirubin 1.3 H (0.2-1.0) mg/dl AST 15 TNP ALT 13 (7-52) U/L Alkaline Phosphatase 86 (34-104) U/L Troponin I High Sens 8.3 (0-20) pg/ml Total Protein 7.9 (6.0-8.3) gm/dl Albumin 4.6 (3.4-5.0) gm/dl Globulin 3.3 (2.5-4.0) gm/dl Albumin/Globulin Ratio 1.4 (0.9-2) Stool Occult Bld Scrn (Negative) POC Stool Occult Blood Blood Type A Negative Antibody Screen NEGATIVE Diagnostic Findings Abdomen/Pelvis CT 06/20/24 19:23 Exam(s): CT ABDOMEN + PELVIS With Contrast IV Amt: 93ml optiray 320 EXAM: CT Abdomen and Pelvis With Intravenous Contrast CLINICAL HISTORY: Reason for exam: LLQ pain. TECHNIQUE: Axial computed tomography images of the abdomen and pelvis with intravenous contrast. CTDI is 26 mGy and DLP is 1367.19 mGy-cm. Automated exposure control was utilized for the study. A dose lowering technique was utilized adhering to the principles of ALARA. CONTRAST: Patient received 93ml optiray 320 of IV contrast COMPARISON: 03/07/2015. FINDINGS: Lung bases: No consolidation. ABDOMEN: Liver: There are 2 rounded lucencies within the left lobe of the liver measuring 0.6 and 1.1 cm in size. Gallbladder and bile ducts: . The patient is status post cholecystectomy.. No ductal dilation. Pancreas: No mass. No ductal dilation. Spleen: No splenomegaly. Adrenals: The left adrenal gland is unremarkable. There is a 1 cm nodule in the right adrenal gland. Kidneys and ureters: No evidence of right renal calculi or hydronephrosis. There are multiple left renal calculi. There is some dilatation of the left renal pelvis. No hydroureter is noted.. Stomach and bowel: There is a small hiatal hernia. The stomach is relatively decompressed. There is air and stool noted in the colon. There are diverticula present on the colon. No significant inflammatory changes are seen. There may be thickening of the wall of the rectum.. PELVIS: Appendix: There is some dilatation of the appendiceal tip with a 6 mm low-density structure (series 2, image 65). No inflammatory changes are seen. Bladder: No calculi are noted within the bladder.. Reproductive: Unremarkable as visualized. ABDOMEN and PELVIS: Intraperitoneal space: No free air. No significant fluid collection. Bones/joints: There is a scoliosis of the spine with degenerative changes.. Soft tissues: Unremarkable. Vasculature: No abdominal aortic aneurysm. Lymph nodes: No enlarged lymph nodes. IMPRESSION: Diverticulosis. There may be thickening of the wall of the rectum. This may be due to under distention. Cannot exclude proctitis. There is a small hiatal hernia. There are multiple left renal calculi. There are some dilatation of the left renal pelvis. No obstructing calculus is noted. This may represent a partial UPJ obstruction. Small rounded lucencies within the liver may represent cysts. A 1 cm nodule in the right adrenal gland may represent an adenoma There is a possible 6 mm mucocele within the appendiceal tip. Electronically signed by: Willam Chapa MD 06/20/24 23:22 PM
[2024-06-21 13:23] LABS: Hematocrit (blood only) 37.1 % (42.0-52.0); Hemoglobin 12.7 g/dl (14.0-18.0)
[2024-06-21 18:57] LABS: Hematocrit (blood only) 39.3 % (42.0-52.0); Hemoglobin 13.6 g/dl (14.0-18.0)
[2024-06-21] MEDS: MELATONIN 3 MG TAB PO PRN (20:24)
[2024-06-22 07:38] LABS: Hematocrit (blood only) 34.9 % (42.0-52.0); Mean Corpuscular Hgb Conc 34.4 g/dL (32.0-36.0); Mean Corpuscular Volume 90.2 fL (80.0-100.0); Mean Platelet Volume 12.3 fL (9.4-12.4); Platelet Count 135 K/uL (130-400); RDW Coefficient of Variation 13.1 % (11.5-14.5); RDW Standard Deviation 42.6 fL (36.4-46.3); Red Blood Count 3.87 M/uL (4.70-6.10); White Blood Count 9.27 K/ul (4.8-10.8)
--- NOTE | 2024-06-22 09:00 | Hospitalist Progress Note ---
Date of Service June 22, 2024 Assessment & Plan (1) Acute upper GI bleed: Plan: Patient did have a 1 still melanotic small amount of stool last night but overall clinically stable, last hemoglobin was 12 down from 13.6 yesterday. Continue with Protonix infusion, recommendation by gastroenterology was seen, continue monitoring H&H, for EGD tomorrow, n.p.o. at midnight. (2) Hypothyroidism, acquired: Plan: Continue Synthroid 50 mcg daily. (3) Hyperlipidemia: Plan: Continue with simvastatin 20 mg daily. (4) Renal stone: Plan: Patient on CT of the abdomen was found to have multiple left renal calculi with some dilation of the left renal pelvis, there was no actual obstruction and no reported hydronephrosis however there was a suggestion of partial UPJ obstruction, patient was seen by urology and no further intervention at this time was recommended. Plan Continue with Protonix infusion, monitor H&H closely and transfuse as needed, n.p.o. at midnight for EGD tomorrow. Admission and Anticipated Discharge Date Admission Date: June 21, 2024 Subjective Patient is an 84-year-old gentleman with history of hyperlipidemia, hypothyroidism, right bundle branch block, restless leg syndrome who developed extensive right lower extremity DVT back in April 2024, patient was then started on Eliquis. Patient comes in with 3 days of melanotic stool. Patient was started on Protonix infusion and gastroenterology was consulted. He has a hemoglobin and hematocrit remained stable overnight with very minimal drop. Patient was seen and examined, he overall remained stable without any issue overnight. Patient was seen by gastroenterology and plan for EGD with or without colonoscopy on Sunday. Home medications were reconciled. Physical Exam Physical Exam: VITALS: Reviewed. GEN: Healthy appearing, well-developed, NAD. NECK: Supple, with no masses. CV: RRR, no m/r/g. LUNGS: CTAB, no w/r/c. ABD: Soft, NT/ND, NBS, no masses or organomegaly. Results & Data Results & Data Vital Signs (Past 12 Hours) Vital Signs Temp Pulse Pulse Resp BP Pulse Ox O2 Del Method 06/22/24 08:21 36.5 C 76 16 102/60 96 Room Air 06/22/24 07:10 69 06/22/24 02:48 36.6 C 70 16 93/57 L 98 Room Air 06/21/24 23:09 72 06/21/24 22:58 Room Air 06/21/24 22:23 37.0 C 65 19 142/68 H 96 Room Air Laboratory Results Laboratory Results - last 24 hr 06/21/24 06/21/24 06/21/24 09:21 09:31 13:02 WBC RBC Hgb 12.7 L Hct 37.1 L MCV MCH MCHC RDW Std Deviation RDW Coeff of Vicki Plt Count MPV Stool Occult Bld Scrn Positive A POC Stool Occult Blood Pending 06/21/24 06/22/24 18:44 07:15 WBC 9.27 RBC 3.87 L Hgb 13.6 L 12.0 L Hct 39.3 L 34.9 L MCV 90.2 MCH 31.0 MCHC 34.4 RDW Std Deviation 42.6 RDW Coeff of Vicki 13.1 Plt Count 135 MPV 12.3 Stool Occult Bld Scrn POC Stool Occult Blood Medications Administered Current Inpatient Medications Acetaminophen (Acetaminophen 325 Mg Tab) 650 mg PO Q4H PRN PRN Reason: Pain or Fever Stop: 07/21/24 04:57 Furosemide (Furosemide 40 Mg Tab) 40 mg PO DAILY LY Stop: 07/21/24 08:59 Last Admin: 06/22/24 08:16 Dose: 40 mg Pantoprazole Sodium 40 mg/ (Dextrose) 100 mls @ 20 mls/hr IV Q5H LY Stop: 07/20/24 19:44 Last Admin: 06/22/24 07:12 Dose: 8 mg/hr, 20 mls/hr Levothyroxine Sodium (Levothyroxine Sodium 50 Mcg Tablet) 50 mcg PO DAILYBB LY Stop: 07/21/24 06:29 Last Admin: 06/22/24 06:08 Dose: 50 mcg Melatonin (Melatonin 3 Mg Tab) 3 mg PO HS PRN PRN Reason: Sleep Stop: 07/21/24 19:21 Last Admin: 06/21/24 20:24 Dose: 3 mg Nitroglycerin (Nitroglycerin Sl 0.4 Mg/Tab Tab) 0.4 mg SL Q5M PRN PRN Reason: Chest Pain Stop: 07/21/24 04:57 Potassium Chloride (Potassium Chloride Crtab 20 Meq Tabcr) 20 meq PO DAILY LY Stop: 07/21/24 08:59 Last Admin: 06/22/24 08:16 Dose: 20 meq Sertraline HCl (Sertraline Hcl 50 Mg Tablet) 50 mg PO DAILY LY Stop: 07/21/24 08:59 Last Admin: 06/22/24 08:16 Dose: 50 mg Simvastatin (Simvastatin 20 Mg Tab) 20 mg PO DAILY LY Stop: 07/21/24 08:59 Last Admin: 06/22/24 08:16 Dose: 20 mg (3) Hyperlipidemia Hyperlipidemia type: mixed hyperlipidemia Qualified Code(s): E78.2 - Mixed hyperlipidemia
--- NOTE | 2024-06-22 10:22 | Gastroenterology Progress Note ---
Date of Service June 22, 2024 Assessment & Plan (1) GIB (gastrointestinal bleeding): Plan: Discussed with him and his family member. Will proceed with EGD and colonoscopy tomorrow as Teresa has had two days to wear off. Admission and Anticipated Discharge Date Admission Date: June 21, 2024 Subjective Feels good. Still passing "dark stools". H/H are still relatively stable. Wants to proceed with both EGD (for bleeding) and colonoscopy (both for bleeding and the fact that he has never had one) Physical Exam Physical Exam: He looks well Constitutional: WD/WN, vitals as above Results & Data Vital Signs (Past 12 Hours) Vital Signs Temp Pulse Pulse Resp BP Pulse Ox O2 Del Method 06/22/24 08:21 36.5 C 76 16 102/60 96 Room Air 06/22/24 07:10 69 06/22/24 02:48 36.6 C 70 16 93/57 L 98 Room Air 06/21/24 23:09 72 06/21/24 22:58 Room Air 06/21/24 22:23 37.0 C 65 19 142/68 H 96 Room Air
[2024-06-22] MEDS: LAVAGE SOLUTION 4000ML PO SCH (18:18)
--- OUTSIDE RECORDS SUMMARY | 2024-06-22 22:24 | External Medical Summary | Summary of Care ---
Author Name Unknown Organization [facility] Address [address] [place] [address] Phone [phone] Care Team Providers Care Steamship Agent Name Role Phone Adán Fink MD Primary Care Provider + Reason for Visit * Reason Comments Medication Administration Encounter Details Date Type Department Care Team (Late st Contact Info) Description 06/04/2024 4:30 PM EST Immunization[facility] [address] [place] [address] [facility] Nurse [facility] [address] [place] [address] B12 deficiency* Allergies No known active allergiesdocumented as of this encounter (statuses as of 06/04/2024) Medications Multiple Vitamins-Minerals (ONE DAILY MENS 50+ MULTIVIT) TABS A ctive Levothyroxine Sodium 50 MCG Oral Tablet (Levoxyl)Indicatio ns:Acquired hypothyroidism Take 1 Tablet by mouth daily first thing in the morning. 100 Tablet 3 05/19/2024 5:27 PM EST 10/15/19 24 Active Sertraline HCl 50 MG Oral Tablet (Zoloft) Take 1 Tablet by mouth in the morning. 100 Tablet 3 05/19/2024 5:27 PM EST 10/15/19 24 Active Simvastatin 20 MG Oral Tablet (Zocor)Indications :Dyslipidemia, goal LDL below 100 Take 1 Tablet by mouth every evening. 100 Tablet 3 05/19/2024 5:27 PM EST 10/15/19 24 Active Cephalexin 500 MG Oral CapsuleIndications :Leg swelling,Celluliti s of right lower extremity,Pain of right lower leg Take 1 Capsule by mouth in the morning and 1 Capsule at noon and 1 Capsule before bedtime. 21 Capsule 04/28/20 Active Additional Information Patient not taking.Reported on 05/09/2024 Furosemide 40 MG Oral Tablet (Lasix)Indications :Leg swelling,Acute diastolic heart failure (HCC) Take 1 Tablet by mouth in the morning. 90 Tablet 3 04/28/20 Active Apixaban Starter Pack 5 MG Oral Tablet Therapy Pack (Eliquis) Take 5 mg by mouth in the morning and 5 mg before bedtime. 10MG TWICE DAILY for 9 days then 5mg TWICE DAILY. 05/02/20 Active Apixaban 5 MG Oral Tablet (Eliquis)Indicatio ns:Acute deep vein thrombosis (DVT) of femoral vein of right lower extremity (HCC) Take 1 Tablet by mouth in the morning and 1 Tablet before bedtime. 120 Tablet 05/30/2024 7:49 AM EST 05/06/20 Active Cephalexin 250 MG Oral Capsule Take 2 Capsules by mouth in the morning and 2 Capsules at noon and 2 Capsules in the evening and 2 Capsules before bedtime. Active Melatonin 10 MG Oral Tablet Chewable Take by mouth. Activ e Potassium Chloride Amy ER 20 MEQ Oral Tablet Extended ReleaseIndications :Bilateral leg edema Take 1 Tablet by mouth in the morning. 30 Tablet 05/19/20 Active Potassium Chloride Amy ER 20 MEQ Oral Tablet Extended ReleaseIndications :Bilateral leg edema Take 1 Tablet by mouth in the morning. 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 10/03 start IM Routine medical exam 09/08/2009 Overview (05/13/2024): Needs yearly CBC monitor lymphocytes. Declines shingrix 05/08 [facility]TE [facility]--noraml EF mild LVH, Gr I mercado dys Dyslipidemia, goal LDL below 100 Mild intermittent asthma without complication Overview (05/28/2019): Cold induced documented as of this encounter (statuses as of 06/04/2024) Resolved Problems Problem Noted Date Diagnosed Date Resolved Date Inflammation of sacroiliac joint 09/15/2020 05/06/2024 History of kidney stones 05/15/2019 Overview (02/26/2020): Historical. Pain of both sacroiliac joints 02/28/2017 [...] as of this encounter (statuses as of 06/04/2024) Immunizations Name Administration Dates Next Due COVID-19 mRNA, LNP-s, No Pre serve, 2-Dose Series (LUBB-TEX) 04/29/2021,09/14/2020 Covid-19, Mrna, Lnp-s, Pf, B ivalent, 30 Mcg, IM, 12 yrs and above (LUBB-TEX) 06/12/2022 Pneumococcal Conjugate Vacc, 13 Valent (Prevnar) [...] Answer Date Recorded PHQ Adult Total Score 1 05/09/2024 Hunger Vital Sign Answer Date Recorded Within the past 12 months, y ou worried that your food would run out before you got the money to buy more. Never true 05/09/20 24 Within the past 12 months, t he food you bought just didn't last and you didn't have money to get more. Never true 05/09/2024 Childcare Answer Date Recorded Do you feel overwhelmed with taking care of a child, family member or friend? No 05/09/2024 Does your family need help f inding childcare? (Household - for ages 0-17 years) Not on file 05/09/2024 Clothing Answer Date Recorded Have you been unable to get clothing when it was really needed? No 05/09/2024 Is your family able to get c lothes or diapers when needed? (Household - for ages 0-17 years) Not on file 05/09/2024 Personal Safety Answer Date Recorded Do you feel unsafe or have concerns for your saf ety? No 05/09/2024 Do you have concerns for you r family's safety? (Household - for ages 0-17 years) Not on file 05/09/2024 Utilities Answer Date Recorded Do you have trouble paying y our heating, water, or electric bill? No 05/09/2024 Is your family able to pay t he heat, water, or electric bill? (Household - for ages 0-17 years) Not on file 05/09/2024 Does your family have access to good internet? (Household - for ages 0-17 years) Not on file 05/09/2024 Employment Status Answer Date Recorded Are you unemployed or without regular income? No 05/09/2024 Does the household have a re gular source of income? (Household - for ages 0-17 years) Not on file 05/09/2024 Social Connections Answer Date Recorded How often do you feel lonely or isolated from th ose around you? Never 05/09/2024 Financial Resource Strain Answer Date R ecorded Do you have any trouble payi ng for your medications, or do you think you might in the future? No 05/09/2024 Does your family have troubl e paying for medicine? (Household - for ages 0-17 years) Not on file 05/09/2024 Transportation Needs Answer Date Record ed READ ONLY Do you have troubl e getting a ride to medical visits or work? Never True 05/09/2024 Does your family have a hard time getting a ride to doctors visits? (Household - for ages 0-17 years) Not on file 05/09/2024 Has lack of transportation k ept you from medical appointments, meetings, work, or from getting things needed for daily living? Check all that apply. No 05/09/2024 Do you (or your family) have trouble finding or paying for a ride (transportation)? (Household - for ages 0-17 years) Not on file 05/09/2024 Housing Stability Answer Date Recorded Do you currently live in a s helter or have no steady place to sleep at night? No 05/09/2024 READ ONLY Do you think you a re at risk of becoming homeless? No 05/09/2024 Does your family worry about paying for your home or becoming homeless? (Household - for ages 0-17 years) Not on file 1 Are you homeless or worried that you might be in the future? No 05/09/2024 Are you (or your family) jesus eless or worried that you might be in the future? (Household - for ages 0-17 years) Not on file Food Insecurity Answer Date Recorded Do you need food for this week? No 05/09/2024 Are you able to get enough f ood for your family? (Household - for ages 0-17 years) Not on file 05/09/2024 Does your family need food t his week? (Household - for ages 0-17 years) Not on file 05/09/2024 Do you always have enough fo od for your family? (Household - for ages 0-17 years) Not on file 05/09/2024 Sex and Gender Information Value Date Recorded Sex Assigned at Male 08/11/2022 12:50 PM EST Legal Sex Male 6:00 AM EST Gender Identity Male 08/11/2022 12:50 PM EST Sexual Orientation Straight 08/11/2022 12 :50 PM EST Occupation Industry Job Start Date Job End Date Not on file Not on file Not on file Not on file documented as of this encounter Plan of Treatment Upcoming Encounters Date Type Department Care Team (Late st Contact Info) Description 06/23/2024 8:00 AM EST Office Visit Cardiology, [facility] [address] [place] [address] Ludmila Jha CRNP [address] [place] [address] 06/23/2024 10:30 AM EST Nurse Only Ancillary [facility] [address] [facility] [place] [address] [facility], Nurse [facility] [address] [facility] [place] [address] 07/28/2024 1:20 PM EST Office Visit Family Practice [facility] [address] [place] [address] Kristin Miramontes CRNP [address] [place] [address] 08/13/2024 10:15 AM EST Office Visit Orthopaedics [facility] [address] [place] [address] Lewis Almaraz, [address] [place] [address] 10/14/2024 9:30 AM EDT Cardiac Studies Cardiac Studies, [facility] [address] [facility] [place] [address] 10/16/2024 10:00 AM EDT Office Visit [facility] Practice [facility] [address] [place] [address] Adán Fink MD [address] [place] [address] Health Maintenance Due Date Last Done Comments Zoster Vaccines (1 of 2) 1990 Adult Wellness Visit 08/11/2023 08/11/2022 COVID-19 Vaccine ( - 2023- season) 2024 06/12/2022, 04/29/2021, 10/05/2020, Additional history exists TSH 04/16/2025 04/16/2024, 05/17, 10/06/2022, Additional history exists Depression Monitoring 05/09/2025 05/09/2024, 024 DTap/Tdap Vaccines (2 - Td or Tdap) [...] this encounter Medical Devices Implanted Type Area Manager Poker Device Identifier Shelf Expiration Date Model / Serial / Lot Lens Li61ao 13.00mm 16.50 - [id number] - [id number] Implanted:Qty: 1 on 01/29/2024 by Dany Thomas MD at OR [facility] Left: Eye [employer] 09/12/2028 [id number] / [id number] / [id number] documented as of this encounter Visit Diagnoses Diagnosis B12 deficiency- Primary Other B-complex deficiencies documented in this encounter Administered Medications Active Administered Medications - up to 3 most recent administrations Medication Order MAR Action Action Date Dose Rate Site Vitamin B-12 (Cyanocobalamin) inj 1,000 mcg 1,000 mcg, Intramuscular, [id number], First dose on Sun04/23/24 at 1430, Last dose on Sun02/25/25 at 1430, For 12 dosesIndications:B12 deficiency Given 06/04/2024 4:20 PM EST 1,000 mcg Deltoid Left Upper Given 05/07/2024 10:54 AM EDT 1,000 mcg D eltoid Left Upper documented in this encounter Advance Directives * [...] Power of Attor deanna? No Care Teams Steamship Agent Relationship Specialty Start Date End Date Adán Fink MD [address] [place] [address] PCP - General Family Medicine 08/31/16 documented as of this encounter
--- OUTSIDE RECORDS SUMMARY | 2024-06-22 22:25 | External Medical Summary | Summary of Care ---
Author Name Unknown Organization [facility] Address [address] [place] [address] Phone [phone] Care Team Providers Care Commercial Credit Lead Name Role Phone Adán Arevalo MD Primary Care Provider + Reason for Visit * Reason Onset Date Comments Medication Refill 05/19/2024 Encounter Details Date Type Department Care Team (Late st Contact Info) Description 05/19/2024 Refill Family Practice [facility] [address] [facility] [place] [address] Yvonne Maher RN [address] [place] [address] Bilateral leg edema Allergies No known active allergiesdocumented as of this encounter (statuses as of 05/21/2024) Medications Medication Sig Dispensed Refills Start Date [...] 10/15/2023 Active Simvastatin 20 MG Oral Tablet (Zocor)Indications: Dyslipidemia, goal LDL below 100 Take 1 Tablet by mouth every evening. 100 Tablet 3 10/15/2023 Active Cephalexin 500 MG Oral CapsuleIndications: Leg swelling,Cellulitis of right lower extremity,Pain of right lower leg Take 1 Capsule by mouth in the morning and 1 Capsule at noon and 1 Capsule before bedtime. 21 Capsule 04/28/2024 Active Additional Information Patient not taking.Reported on 05/09/2024 Furosemide 40 MG Oral Tablet (Lasix)Indications: Leg swelling,Acute diastolic heart failure (HCC) Take 1 Tablet by mouth in the morning. 90 Tablet 3 04/28/2024 Active Apixaban Starter Pack 5 MG Oral Tablet Therapy Pack (Eliquis) Take 5 mg by mouth in the morning and 5 mg before bedtime. 10MG TWICE DAILY for 9 days then 5mg TWICE DAILY. 05/02/2024 Active Apixaban 5 MG Oral Tablet (Eliquis)Indication s:Acute deep vein thrombosis (DVT) of femoral vein of right lower extremity (HCC) Take 1 Tablet by mouth in the morning and 1 Tablet before bedtime. 120 Tablet 05/06/2024 Active Cephalexin 250 MG Oral Capsule Take 2 Capsules by mouth in the morning and 2 Capsules at noon and 2 Capsules in the evening and 2 Capsules before bedtime. Active Melatonin 10 MG Oral Tablet Chewable Take by mouth. Active Potassium Chloride Amy ER 20 MEQ Oral Tablet Extended ReleaseIndications: Bilateral leg edema Take 1 Tablet by mouth in the morning. 30 Tablet 05/19/2024 Active Potassium Chloride Amy ER 20 MEQ Oral Tablet Extended ReleaseIndications: Bilateral leg edema Take 1 Tablet by mouth in the morning. 100 Tablet 3 05/19/2024 Active Potassium Chloride Amy ER 20 MEQ Oral Tablet Extended ReleaseIndications: Bilateral leg edema Take 1 Tablet by mouth in the morning. 30 Tablet 04/16/2024 Discontinu ed(Refill) Hospital, Clinic, or Other Facility Administered Medication Ordered Dose Route Frequency Start Date End Date Status Vitamin B-12 (Cyanocobalamin) inj 1,000 mcgIndications:B12 deficiency 1000 mcg IM [id number] 04/23/2024 03/25/2025 Active documented as of this encounter (statuses as of 05/21/2024) Active Problems Problem Noted Date Diagnosed Date [...] CBC monitor lymphocytes. Declines shingrix 05/08 [facility]--noraml EF mild LVH, Gr I mercado dys Dyslipidemia, goal LDL below 100 Mild intermittent asthma without complication Overview: Cold induced documented as of this encounter (statuses as of 05/21/2024) Resolved Problems Problem Noted Date Diagnosed Date Resolved Date Inflammation of sacroiliac joint 09/15/2020 05/06/2024 History of kidney stones 05/15/2019 Overview: Historical. [...] as of this encounter (statuses as of 05/21/2024) Immunizations Name Administration Dates Next Due COVID-19 mRNA, LNP-s, No Pre serve, 2-Dose Series (MolecuLight) 04/29/2021,09/14/2020 Covid-19, Mrna, Lnp-s, Pf, B ivalent, [...] encounter Miscellaneous Notes * Telephone Encounter - Yvonne Maher RN - 05/21/2024 2:38 PM ESTSigned Prescriptions: Disp Refills Potassium Chloride Amy ER 20 MEQ Oral Tab*30 Tab*0 Sig: Take 1 Tablet by mouth in the morning.Authorizing Provider: ADÁN AREVALO Potassium Chloride Amy ER 20 MEQ Oral Tab*100 Ta*3 Sig: Take 1 Tablet by mouth in the morning.Authorizing Provider: ADÁN AREVALO * Telephone Encounter - Yvonne Maher RN - 05/21/2024 2:33 PM EST Patient made aware * Telephone Encounter - Adán Arevalo MD - 05/19/2024 10:49 PM EST Sure--Rx both sent. For the future--you can pend both separate orders and add both pharmacies using the multiple pharmacy tab (I can show you how!) thank you. * Telephone Encounter - Yvonne Maher RN - 05/19/2024 12:19 PM EST Patient has 3 days left of his potassium so he needs refill sent to local pharmacy. He would like to then convert this to mail order. Dr Arevalo, can you send small potassium Rx to [facility] in [place], and then a 3 month supply to [facility] Mail order? documented in this encounter Plan of Treatment Upcoming Encounters Date Type Department Care Team (Late st Contact Info) Description 06/04/2024 4:30 PM EST Immunization/Injec tion Ancillary [facility] [address], [place] [address] [place], Nurse Josue Webber [address] [place] [address] 06/23/2024 8:00 AM EST Office Visit Cardiology, [facility] [address] [place] [address] Ludmila Jha CRNP [address] [place] [address] 07/28/2024 1:20 PM EST Office [facility] [place] [address] Kristin Miramontes CRNP [address] [place] [address] 08/11/2024 1:30 PM EST Office Visit Orthopaedics [facility] [address] [place] [address] Lewis Almaraz, [address] [place] [address] 10/14/2024 9:30 AM EDT Cardiac Studies Cardiac Studies, [facility] [address] [facility] [place] [address] 10/16/2024 10:00 AM EDT Office Visit [facility] [address] [facility] [place] [address] Adán Arevalo MD [address] [place] [address] Health Maintenance Due Date Last Done Comments Zoster Vaccines (1 of 2) 1990 Adult Wellness Visit 08/11/2023 08/11/2022 COVID-19 Vaccine ( season) 2024 06/12/2022, 04/29/2021, 10/05/2020, Additional history [...] this encounter Medical Devices Implanted Type Area Shipping Packer Device Identifier Shelf Expiration Date Model / Serial / Lot Lens Li61ao 13.00mm 16.50 - [id number] - [id number] Implanted:Qty: 1 on 01/29/2024 by Dany Thomas MD at OR [facility] Left: Eye [employer] 09/12/2028 [id number] / [id number] / [id number] documented as of this encounter Visit Diagnoses Diagnosis Bilateral leg edema Edema documented in this [...] Power of Attor deanna? No Care Teams Commercial Credit Lead Relationship Specialty Start Date End Date Adán Arevalo MD [address] [place] [address] PCP - General Family Medicine 08/31/16 documented as of this encounter
--- OUTSIDE RECORDS SUMMARY | 2024-06-22 22:25 | External Medical Summary | Summary of Care ---
Author Name Unknown Organization [facility] Address [address] [place] [address] Phone [phone] Care Team Providers Care Cattle Dipper Name Role Phone Adán Fink MD Primary Care Provider + Reason for Referral * Evaluate & Treat - Unlimited Visits (Within 10 days (routine)) - Authorized Specialty Diagnoses / Procedures Referred By Contwilliam austin Referred To Contact Podiatry Diagnoses Nail thickening Adán Fink MD [address] [employer] [facility] [place] [address] Referral ID Status Reason Start Date Expiration Date Visits Requested Visits Authorized [id number] Authorized Specialty Services Required 4 [phone] Question Answer Referral Priority Within 10 days (routine) Where should this appointment be scheduled? External - [facility] Which condition are you referring this patient for? Nail trimming Medicare Patient? Yes Can Patient perform routine footcare without assistance? No Does patient have a chronic condition? Yes Has patient been seen in the past 6 months? Yes Date last seen for chronic condition: 05/06/2024 Who saw patient for chronic condition? dR. Fink Reason for Visit * Reason Comments Hospital Follow-Up [facility] 04/29-05/02: DV T Encounter Details Date Type Department Care Team (Late st Contact Info) Description 05/06/2024 2:40 PM EDT Office Visit [facility] [address] [place] [address] Adán Fink MD [address] [place] [address] Acute deep vein thrombosis (DVT) of femoral vein of right lower extremity (HCC)*; Nail thickening; Acute on chronic congestive heart failure, unspecified heart failure type (HCC) Allergies No known active allergiesdocumented as of this encounter (statuses as of 05/06/2024) Medications Medication Sig Dispensed Refills Start Date [...] Tablet 04/16/2024 Active Cephalexin 500 MG Oral CapsuleIndications:L eg swelling,Cellulitis of right lower extremity,Pain of right lower leg Take 1 Capsule by mouth in the morning and 1 Capsule at noon and 1 Capsule before bedtime. 21 Capsule 04/28/2024 Active Furosemide 40 MG Oral Tablet (Lasix)Indications:L eg swelling,Acute diastolic heart failure (HCC) Take 1 Tablet by mouth in the morning. 90 Tablet 3 04/28/2024 Active Apixaban Starter Pack 5 MG Oral Tablet Therapy Pack (Eliquis) Take 5 mg by mouth in the morning and 5 mg before bedtime. 10MG TWICE DAILY for 9 days then 5mg TWICE DAILY. 05/02/2024 Active Apixaban 5 MG Oral Tablet (Eliquis)Indications :Acute deep vein thrombosis (DVT) of femoral vein of right lower extremity (HCC) Take 1 Tablet by mouth in the morning and 1 Tablet before bedtime. 120 Tablet 05/06/2024 Active Apixaban 5 MG Oral Tablet (Eliquis)Indications :Acute deep vein thrombosis (DVT) of femoral vein of right lower extremity (HCC) Take 1 Tablet by mouth in the morning and 1 Tablet before bedtime. 60 Tablet 2 05/06/2024 Discontinue d(Refill) Hospital, Clinic, or Other Facility Administered Medication Ordered Dose Route Frequency Start Date End Date Status Vitamin B-12 (Cyanocobalamin) inj 1,000 mcgIndications:B12 deficiency 1000 mcg IM [id number] 04/23/2024 03/25/2025 Active documented as of this encounter (statuses as of 05/06/2024) Active Problems Problem Noted Date Diagnosed Date [...] as of this encounter (statuses as of 05/06/2024) Resolved Problems Problem Noted Date Diagnosed Date [...] as of this encounter (statuses as of 05/06/2024) Immunizations Name Administration Dates Next Due COVID-19 mRNA, LNP-s, No Pre serve, 2-Dose Series (Run2Sport) 04/29/2021,09/14/2020 Covid-19, Mrna, Lnp-s, Pf, B ivalent, [...] Sign Reading Time Taken Comments Blood Pressure 118/62 05/06/2024 2:59 PM EDT Pulse 76 05/06/2024 2:59 PM EDT Temperature - - Respiratory Rate 16 05/06/2024 2:59 PM EDT Oxygen Saturation 99% 05/06/2024 2:59 PM EDT Inhaled Oxygen Concentration - - Weight 86.8 kg (191 lb 4.8 oz) 05/06/2024 2:59 P M EDT Height - - Body Mass Index 26.78 04/16/2024 10:59 AM EDT documented in this encounter Progress Notes * Adán Fink MD - 05/06/2024 3:46 PM EDT Images from the original note were not included. Subjective Kleber Darden is a 84 year old male presenting for Hospital Follow-Up ([facility] 04/29- 05/02: DVT ) Here w/son Jeremiah Darden History of Present Illness Ed, a patient with a history of CHF, was recently hospitalized due to a blood clot in his right legand bilateral leg swelling. The swelling had been present for a couple of months before the hospitalization. Saw cardiology, who ordered Duplex. An ultrasound confirmed the presence of a DVT in his right leg. CTA chest was neg for PE The patient was treated with IV diuretics to reduce the fluid accumulation, resulting in a significant weight loss of 10 pounds. Continues on 40mg lasix daily. The patient reports a decrease in leg swelling since the hospitalization. However, he has noticed bruising on his right leg, which was not present before starting anticoagulation therapy. He also experiences occasional tingling in his right leg but denies any pain. The patient has never had a blood clot before and does not have a family history of blood clots. He has not had any recent surgeries or long car rides that could have contributed to the development of the DVT. The patient's toenails are thi ckened, and he has difficulty reaching down to file them. Objective Blood pressure 118/62, pulse 76, resp. rate 16, weight 86.8 kg (191 lb 4.8 oz), SpO2 99%. Physical Exam MEASUREMENTS: WT- 191 pounds HEENT: Head and neck normal. CHEST: Lungs clear to auscultation, no crackles bilaterally. CARDIOVASCULAR: Heart sounds regular, no murmurs. ABDOMEN: Abdomen non-tender on palpation. EXTREMITIES: Non-pitting edema on left leg, minimal edema in left ankle and lower leg. Right leg with significant bruising, faint pink discoloration on right james, +ecchymoses on inner right ankle/calf, pitting edema in right foot. Skin-elongated toenails b/l Results RADIOLOGY Right leg ultrasound: Deep vein thrombosis in the right leg (04/29/2024) Assessment and Plan Assessment & Plan Right Lower Extremity Deep Vein Thrombosis (DVT) First occurrence of DVT with no known family history of clotting disorders. No recent surgeries, long car rides, or periods of immobility. Currently on Eliquis 10mg for the first 10 days, then will decrease to 5mg twice daily. -Continue Eliquis until July 30, 2024. (3mos as 1st event) -ok to defer hematology consult. Deneen 3mo plan to stop eliquis 07/30/24 if doing ok clinically. Congestive Heart Failure (CHF) Recent hospitalization due to fluid overload with significant weight loss after diuresis. Currentlyon 40mg Lasix daily. -Continue Lasix 40mg daily as per cardiology -Check renal function and electrolytes today. General Health Maintenance -Referral to podiatry for nail care. -Follow-up appointment in July 2024 to assess DVT resolution and overall health status. Acute deep vein thrombosis (DVT) of femoral vein of right lower extremity (HCC) (Primary) - Apixaban 5 MG Oral Tablet (Eliquis); Take 1 Tablet by mouth in the morning and 1 Tablet before bedtime. Nail thickening - PODIATRY REFERRAL OP Acute on chronic congestive heart failure, unspecified heart failure type (HCC) Wrap-Up Follow Up: Return in about 12 weeks (around 07/29/2024) for Return with AP. | For: Return with AP | Check-out note: FOR DVT F/U. Time: I spent a total of 30-39 minutes (exact time 35 mins) on the date of service in preparation, delivery, and documentation of the care provided to Kleber Darden excluding any time spent in the performance of separately billed services. Text in this note was generated using an [employer] documentation service. I discussed the use of a device to record and summarize our discussion today. All persons present during the encounter consented to its use. documented in this encounter Nursing Notes * Mallorie Cavanaugh LPN - 05/06/2024 2:58 PM EDT The patient has been properly identified by confirmation of name and date of . Chief Complaint Patient presents with Hospital Follow-Up [facility] 04/29-05/02: DVT documented in this encounter Plan of Treatment Upcoming Encounters Date Type Department Care Team (Late st Contact Info) Description 05/07/2024 10:30 AM EDT Office Visit Orthopaedics [address] [place] [address] Lewis Almaraz DO [address] [facility] [place] [address] 05/07/2024 11:00 AM EDT Nurse Only Ancillary [place] [address] [place] [address] Brayan, Nurse Josue Webber [address] [place] [address] [place] [address] 06/23/2024 8:00 AM EST Office Visit Cardiology, [place] [address] [place] [address] Ludmila Jha CRNP [address] [place] [address] 07/29/2024 2:40 PM EST Office Visit [facility] [address] [facility] [place] [address] Lauren Gonzalez CRNP [address] [place] [address] 10/14/2024 9:30 AM EDT Cardiac Studies [facility] [place] [address] 10/16/2024 10:00 AM EDT Office Visit [facility] [address] [facility] [place] [address] Adán Fink MD [address] [place] [address] Scheduled Referrals Name Type Priority Associated Diagnoses Orde r Schedule PODIATRY REFERRAL OP Referral Within 10 days (routine) Nail thickening Ordered: 05/06/2024 Health Maintenance Due Date Last Done Comments Zoster Vaccines (1 of 2) 1992 Adult Wellness Visit 08/11/2023 08/11/2022 COVID-19 Vaccine ( season) 2024 06/12/2022, 04/29/2021, 10/05/2020, Additional history exists Depression Monitoring 10/14/2024 10/15/2023 TSH 04/16/2025 04/16/2024, [...] this encounter Medical Devices Implanted Type Area Cashier Self Service Gasoline Device Identifier Shelf Expiration Date Model / Serial / Lot Lens Li61ao 13.00mm 16.50 - [id number] - [id number] Implanted:Qty: 1 on 01/29/2024 by Dany Thomas MD at [facility] Left: Eye [employer] 09/12/2028 [id number] / [id number] / [id number] documented as of this encounter Visit Diagnoses Diagnosis Acute deep vein thrombosis (DVT) of femoral vein of right lower extremity (HCC)- Primary Nail thickening Other specified disease of nail Acute on chronic congestive heart failure, unspecified heart failure type (HCC) documented in this encounter Advance Directives * [...] Power of Attor deanna? No Care Teams Cattle Dipper Relationship Specialty Start Date End Date Adán Fink MD [address] [place] [address] PCP - General Family Medicine 08/31/16 documented as of this encounter"
--- OUTSIDE RECORDS SUMMARY | 2024-06-22 22:25 | External Medical Summary | Summary of Care ---
Author Name Unknown Organization [facility] Address [address] [place] [address] Phone [phone] Care Team Providers Care Asbestos Wire Finisher Name Role Phone Adán Fink MD Primary Care Provider + Reason for Visit * Reason Comments Medication Administration Encounter Details Date Type Department Care Team (Late st Contact Info) Description 05/07/2024 11:00 AM EDT Nurse Only Ancillary [facility] [address] [place] [address] Schmidt, Nurse [facility] [address] [place] [address] Medication Administration Allergies No known active allergiesdocumented as of this encounter (statuses as of 05/07/2024) Medications Medication Sig Dispensed Refills Start Date [...] 05/02/2024 Active Apixaban 5 MG Oral Tablet (Eliquis)Indications:A cute deep vein thrombosis (DVT) of femoral vein of right lower extremity (HCC) Take 1 Tablet by mouth in the morning and 1 Tablet before bedtime. 120 Tablet 05/06/2024 Active Hospital, Clinic, or Other Facility Administered Medication Ordered Dose Route Frequency Start Date End Date Status Vitamin B-12 (Cyanocobalamin) inj 1,000 mcgIndications:B12 deficiency 1000 mcg IM [id number] 04/23/2024 03/25/2025 Active documented as of this encounter (statuses as of 05/07/2024) Active Problems Problem Noted Date Diagnosed Date [...] as of this encounter (statuses as of 05/07/2024) Resolved Problems Problem Noted Date Diagnosed Date [...] as of this encounter (statuses as of 05/07/2024) Immunizations Name Administration Dates Next Due COVID-19 mRNA, LNP-s, No Pre serve, 2-Dose Series (ZhongSou) 04/29/2021,09/14/2020 Covid-19, Mrna, Lnp-s, Pf, B ivalent, 30 Mcg, IM, 12 yrs and above (ZhongSou) 06/12/2022 Pneumococcal Conjugate Vacc, 13 Valent (Prevnar) [...] Department Care Team (Latest Contact Info) Description 05/07/2024 11:40 AM EDT Laboratory Laboratory, [facility] [address] [place] [id number] Rizwan Schmidt [address] [place] [address] Leg swelling; Acute diastolic heart failure (HCC) 06/04/2024 4:30 PM EST Immunization/Inject ion Ancillary [facility] [address] [place] [address] Nurse Josue Schmidt [address] [place] [address] 06/23/2024 8:00 AM EST Office Visit Cardiology, [facility] [address] [place] [address] Ludmila Jha CRNP [address] [place] [address] 07/29/2024 2:40 PM EST Office Visit Family [facility] [address] [place] [address] Lauren Gonzalez CRNP [address] [place] [address] 08/11/2024 1:30 PM EST Office Visit Orthopaedics [facility] [address] [place] [address] Lewis Almaraz DO [address] [place] [address] 10/14/2024 9:30 AM EDT Cardiac Studies Cardiac Studies, [facility] [address] [place] [address] 10/16/2024 10:00 AM EDT Office Visit [facility] [address] [place] [address] Adán Fink MD [address] [place] [address] Health Maintenance Due Date Last Done Comments [...] this encounter Medical Devices Implanted Type Area Nuisance Wildlife Trapper Device Identifier Shelf Expiration Date Model / Serial / Lot Lens Li61ao 13.00mm 16.50 - [id number] - [id number] Implanted:Qty: 1 on 01/29/2024 by Dany Thomas MD at OR [facility] Left: Eye [employer] 09/12/2028 [id number] / [id number] / [id number] documented as of this encounter Visit Diagnoses Diagnosis B12 deficiency- Primary Other B-complex deficiencies Leg swelling Swelling of limb Acute diastolic heart failure (HCC) Acute diastolic heart failure documented in this encounter Administered Medications Active Administered Medications - up to 3 most recent administrations Medication Order MAR Action Action Date Dose Rate Site Vitamin B-12 (Cyanocobalamin) inj 1,000 mcg 1,000 mcg, Intramuscular, Q2GHONT, First dose on Sun04/23/24 at 1430, Last dose on Sun02/25/25 at 1430, For 12 doses Given 05/07/2024 10:54 AM EDT 1,000 mcg Deltoid Left Upper documented in this encounter Advance [...] Power of Attor deanna? No Care Teams Asbestos Wire Finisher Relationship Specialty Start Date End Date Adán Fink MD [address] [place] [address] PCP - General Family Medicine 08/31/16 documented as of this encounter
--- OUTSIDE RECORDS SUMMARY | 2024-06-22 22:25 | External Medical Summary | Summary of Care ---
Author Name Unknown Organization [facility] Address [address] [place] [address] Phone [phone] Care Team Providers Care Life Underwriter Name Role Phone Adán Fink MD Primary Care Provider + Reason for Referral * Precert (Within 10 days (routine)) - Authorized Specialty Diagnoses / Procedures Referred By Dianne austin Referred To Contact Pain Medicine Diagnoses Primary osteoarthritis of both knees Procedures INJECT MAJOR JX/BURSA W/O US GUIDE Lewis Almaraz DO [address] [place] [address] Referral ID Status Reason Start Date Expiration Date V isits Requested Visits Authorized [id number] Authorized 05/07/[phone] Reason for Visit * Reason Comments Follow Up Bilateral knee Encounter Details Date Type Department Care Team (Latest Contact Info) Description 05/07/2024 10:30 AM EDT Office Visit Orthopaedics [facility] [address] [place] [address] Lewis Almaraz DO [address] [place] [address] Primary osteoarthritis of both knees* Allergies No [...] inj 1,000 mcgIndications:B12 deficiency 1000 mcg IM [id number] 04/23/2024 03/25/2025 Active lidocaine 1% 1 mL - triamcinolone acetonide 40 mg/mL 1 mL inj 2 mLIndications:Primary osteoarthritis of both knees 2 mL IJ ONCE 05/07/2024 05/07/2024 Ended lidocaine 1% 1 mL - triamcinolone acetonide 40 mg/mL 1 mL inj 2 mLIndications:Primary osteoarthritis of both knees 2 mL IJ ONCE 05/07/2024 05/07/2024 Ended documented as of this encounter (statuses [...] mRNA, LNP-s, No Pre serve, 2-Dose Series (Earnest) 04/29/2021,09/14/2020 Covid-19, Mrna, Lnp-s, Pf, B ivalent, 30 Mcg, IM, 12 yrs and above (Earnest) 06/12/2022 Pneumococcal Conjugate Vacc, 13 Valent (Prevnar) [...] Progress Notes * Lewis Almaraz, DO - 05/07/2024 10:30 AM EDT Kleber Darden [id number] Kleber Darden is a 84 year old male who presents for follow up for bilateral knee pain to [facility]. Kleber Darden is here unaccompanied Last injected 02/04/24 Today: he would like repeat injections Past Medical History: Diagnosis Date Asthma, [...] 1,000 mcg 1,000 mcg Intramuscular Q4 Weeks Physical Exam Gait and Station: slightly antalgic Knee exam, bilateral Effusion: negative on Bilateral Palpation: tenderness to palpation at medial joint line on the Bilateral Assessment and Plan: see procedure note, follow up 3 months Primary osteoarthritis of both knees (Primary) - lidocaine 1% 1 mL - triamcinolone acetonide 40 mg/mL 1 mL inj 2 mL - lidocaine 1% 1 mL - triamcinolone acetonide 40 mg/mL 1 mL inj 2 mL - INJECT MAJOR JX/BURSA W/O US RILEY Almaraz DO Primary Care Sports Medicine Orthopaedics [place] [address] [place] [address] This chart was completed in part utilizing [employer] Voice Recognition Software. Grammatical errors, random word [...] Notes * Cassi Hamm MED ASSIST - 05/07/2024 10:22 AM EDT Repeat bilateral knee injections. documented in this encounter Plan of Treatment Upcoming Encounters Date Type Department Care Team (Late st Contact Info) Description 05/07/2024 11:00 AM EDT Nurse Only Ancillary [facility] [address] [place] [address] [facility], Nurse [facility] [address] [place] [address] Arrived 06/23/2024 8:00 AM EST Office Visit Cardiology, [facility] [address] [place] [address] Ludmila Jha CRNP [address] [place] [address] 07/29/2024 2:40 PM EST Office Visit [facility] [address] [place] [address] Lauren Gonzalez CRNP [address] [place] [address] 08/11/2024 1:30 PM EST Office Visit Orthopaedics [facility] [address] [place] [address] Lewis Almaraz, [address] [place] [address] 10/14/2024 9:30 AM EDT Cardiac Studies Cardiac Studies, [facility] [address] [facility] [place] [address] 10/16/2024 10:00 AM EDT Office Visit [facility] [address] [facility] [place] [address] Adán Fink MD [address] [place] [address] Scheduled Orders Name Type Priority Associated Diagnoses Orde r Schedule INJECT MAJOR JX/BURSA W/O US GUIDE Procedures Routine Primary osteoarthritis of both knees Ordered: 05/07/2024 Health Maintenance Due Date Last Done Comments [...] this encounter Medical Devices Implanted Type Area Sales And Service Technician Device Identifier Shelf Expiration Date Model / Serial / Lot Lens Li61ao 13.00mm 16.50 - [id number] - [id number] Implanted:Qty: 1 on 01/29/2024 by Dany Thomas MD at OR [facility] Left: Eye [employer] 09/12/2028 [id number] / [id number] / [id number] documented as of this encounter Visit Diagnoses Diagnosis Primary osteoarthritis of both knees- Primary Primary localized osteoarthrosis, lower leg documented in this encounter Administered Medications Inactive Administered Medications - up to 3 most recent administrations Medication Order MAR Action Action Date Dose Rate Site lidocaine 1% 1 mL - triamcinolone acetonide 40 mg/mL 1 mL inj 2 mL 2 mL, Injection, ONCE, On Sun05/07/24 at 1100, For 1 dose, Lidocaine 1% 1mL Triamcinolone Acetonide 40 mg/mL 1 mL (Final concentration = 20 mg/mL) REFRIGERATE and SHAKE WELL Given 05/07/2024 10:37 AM EDT 2 mL Knee Right lidocaine 1% 1 mL - triamcinolone acetonide 40 mg/mL 1 mL inj 2 mL 2 mL, Injection, ONCE, On Sun05/07/24 at 1100, For 1 dose, Lidocaine 1% 1mL Triamcinolone Acetonide 40 mg/mL 1 mL (Final concentration = 20 mg/mL) REFRIGERATE and SHAKE WELL Given 05/07/2024 10:36 AM EDT 2 mL Knee Left documented [...] Power of Attor deanna? No Care Teams Life Underwriter Relationship Specialty Start Date End Date Adán Fink MD [address] [facility] [place] [address] PCP - General Family Medicine 08/31/16 documented as of this encounter
--- OUTSIDE RECORDS SUMMARY | 2024-06-22 22:25 | External Medical Summary | Summary of Care ---
Author Name Unknown Organization [facility] Address [address] [place] [address] Phone [phone] Care Team Providers Care Keg Washer Name Role Phone Adán Fink MD Primary Care Provider + Reason for Referral * Precert (Within 10 days (routine)) - Authorized Specialty Diagnoses / Procedures Referred By Dianne ausitn Referred To Contact Pain Medicine Diagnoses Primary osteoarthritis of both knees Procedures INJECT MAJOR JX/BURSA W/O US GUIDE Lewis Almaraz DO [address] [place] [address] Referral ID Status Reason Start Date Expiration Date V isits Requested Visits Authorized [id number] Authorized 05/07/2024 999 999 Reason for Visit * Reason Comments Follow Up Bilateral knee Encounter Details Date Type Department Care Team (Latest Contact Info) Description 05/07/2024 10:30 AM EDT Office Visit Orthopaedics [facility] [place] [address] [place] [address] Lewis Almaraz DO [address] [place] [address] Primary osteoarthritis of both knees* Allergies No [...] inj 1,000 mcgIndications:B12 deficiency 1000 mcg IM [id number] 04/23/2024 03/25/2025 Active lidocaine 1% 1 mL [...] mRNA, LNP-s, No Pre serve, 2-Dose Series (Played) 04/29/2021,09/14/2020 Covid-19, Mrna, Lnp-s, Pf, B ivalent, 30 Mcg, IM, 12 yrs and above (Played) 06/12/2022 Pneumococcal Conjugate Vacc, 13 Valent (Prevnar) [...] - 05/07/2024 10:30 AM EDT Kleber Darden [id number] Kleber Darden is a 84 year old male who presents for follow up for bilateral knee pain to [facility]. Kleber Darden is here unaccompanied [...] DO Primary Care Sports Medicine Orthopaedics Meliton Schmidt[address] [place] [address] This chart was completed in part utilizing [employer] Voice Recognition Software. Grammatical errors, random word [...] 05/07/2024 11:00 AM EDT Nurse Only Ancillary [facility] [place] [address] [place] [address] [facility], Nurse [facility] [address] [place] [address] 06/23/2024 8:00 AM EST Office Visit Cardiology, [facility] [place] [address] [place] [address] Ludmila Jha CRNP [address] [place] [address] 07/29/2024 2:40 PM EST Office Visit [facility] [address] [place] [address] Lauren Gonzalez CRNP [address] [place] [address] 08/11/2024 1:30 PM EST Office Visit Orthopaedics [facility] [place] [address] [place] [address] Lewis Almaraz, [address] [place] [address] 10/14/2024 9:30 AM EDT Cardiac Studies Cardiac Studies, [facility] [place] [address] [facility] [place] [address] 10/16/2024 10:00 AM EDT Office Visit [facility] [address] [facility] [place] [address] Adán Fink MD [address] [place] [address] Scheduled Orders Name Type Priority Associated Diagnoses [...] this encounter Medical Devices Implanted Type Area Automat Watcher Device Identifier Shelf Expiration Date Model / Serial / Lot Lens Li61ao 13.00mm 16.50 - [id number] - [id number] Implanted:Qty: 1 on 01/29/2024 by Dany Thomas MD at [facility] Left: Eye [employer] LOMB 09/12/2028 [id number] / [id number] / [id number] documented as of this encounter Visit Diagnoses [...] Power of Attor deanna? No Care Teams Keg Washer Relationship Specialty Start Date End Date Adán Fink MD 132 [facility] [place] [address] PCP - General Family Medicine 08/31/16 documented as of this encounter
--- OUTSIDE RECORDS SUMMARY | 2024-06-22 22:25 | External Medical Summary | Summary of Care ---
Author Name Unknown Organization [facility] Address [address] [place] [address] Phone [phone] Care Team Providers Care Hand Collator Name Role Phone Adán Fink MD Primary Care Provider + Reason for Referral * Precert (Within 10 days (routine)) - Authorized Specialty Diagnoses / Procedures Referred By Dianne austin Referred To Contact Pain Medicine Diagnoses Primary osteoarthritis of both knees Procedures INJECT MAJOR JX/BURSA W/O US GUIDE Lewis Almaraz DO [address] [place] [address] Referral ID Status Reason Start Date Expiration Date V isits Requested Visits Authorized [id number] Authorized 05/07/2024 999 999 Reason for Visit * Reason Comments Follow Up Bilateral knee Encounter Details Date Type Department Care Team (Latest Contact Info) Description 05/07/2024 10:30 AM EDT Office Visit Orthopaedics [facility] [address] [place] [address] Lewis Almaraz DO [address] [place] [address] Primary osteoarthritis of both knees* Allergies No [...] inj 1,000 mcgIndications:B12 deficiency 1000 mcg IM [id number] 04/23/2024 03/25/2025 Active lidocaine 1% 1 mL [...] mRNA, LNP-s, No Pre serve, 2-Dose Series (OrderWithMe) 04/29/2021,09/14/2020 Covid-19, Mrna, Lnp-s, Pf, B ivalent, 30 Mcg, IM, 12 yrs and above (OrderWithMe) 06/12/2022 Pneumococcal Conjugate Vacc, 13 Valent (Prevnar) [...] - 05/07/2024 10:30 AM EDT Kleber Darden [id number] Kleber Darden is a 84 year old male who presents for follow up for bilateral knee pain to [facility]. Kleber Darden is here [...] Primary Care Sports Medicine Orthopaedics Meliton Schmidt[address] [place] [address] This chart was completed in part utilizing [employer] Voice Recognition Software. Grammatical errors, random word [...] 05/07/2024 11:00 AM EDT Nurse Only Ancillary [facility] [address] [place] [address] [facility], Nurse [facility] [address] [place] [address] Arrived 06/23/2024 8:00 AM EST Office Visit Cardiology, [facility] [address] [place] [address] Ludmila Jha CRNP [address] [place] [address] 07/29/2024 2:40 PM EST Office Visit [facility] [address] [place] [address] Lauren Gonzalez CRNP [address] [place] [address] 08/11/2024 1:30 PM EST Office Visit Orthopaedics [facility] [address] [place] [address] Lewis Almaraz, [address] [place] [address] 10/14/2024 9:30 AM EDT Cardiac Studies Cardiac Studies, [facility] 132 [facility] [place] [address] 10/16/2024 10:00 AM EDT Office Visit [facility] [address] [facility] [place] [address] Adán Fink MD [address] [place] [address] Scheduled Orders Name Type Priority Associated Diagnoses [...] this encounter Medical Devices Implanted Type Area Electrical And Instrument Technician Device Identifier Shelf Expiration Date Model / Serial / Lot Lens Li61ao 13.00mm 16.50 - [id number] - [id number] Implanted:Qty: 1 on 01/29/2024 by Dany Thomas MD at OR [facility] Left: Eye [employer]CH [employer] LOMB 09/12/2028 [id number] / [id number] / [id number] documented as of this encounter Visit Diagnoses [...] Power of Attor deanna? No Care Teams Hand Collator Relationship Specialty Start Date End Date Adán Fink MD 132 [facility] [place] [address] PCP - General Family Medicine 08/31/16 documented as of this encounter
--- OUTSIDE RECORDS SUMMARY | 2024-06-22 22:25 | External Medical Summary | Summary of Care ---
Author Name Unknown Organization [facility] Address [address] [place] [address] Phone [phone] Care Team Providers Care Barrel Maker Name Role Phone Adán Fink MD Primary Care Provider + Encounter Details Date Type Department Care Team (Late st Contact Info) Description 04/30/2024 Result Scan Unspecified Department <No scans attached> Allergies No known active allergiesdocumented as of [...] 3 10/15/2023 Active Cephalexin 500 MG Oral CapsuleIndications:L eg swelling,Cellulitis of right lower extremity,Pain of right lower leg Take 1 Capsule by mouth in the morning and 1 Capsule at noon and 1 Capsule before bedtime. 21 Capsule 04/28/2024 Active Additional Information Patient not taking.Reported on 05/09/2024 Furosemide 40 MG Oral Tablet (Lasix)Indications:L eg swelling,Acute diastolic heart failure (HCC) Take 1 Tablet by mouth in the morning. 90 Tablet 3 04/28/2024 Active Hospital, Clinic, or Other Facility Administered Medication Ordered Dose Route Frequency Start Date End Date Status Vitamin B-12 (Cyanocobalamin) inj 1,000 mcgIndications:B12 deficiency 1000 mcg IM [id number] 04/23/2024 03/25/2025 Active documented as of this [...] CBC monitor lymphocytes. Declines shingrix 05/08 TTE [facility]--noraml EF mild LVH, Gr I mercado dys [...] mRNA, LNP-s, No Pre serve, 2-Dose Series ([employer]) 04/29/2021,09/14/2020 Covid-19, Mrna, Lnp-s, Pf, B ivalent, [...] money to buy more. Never true 05/09/20 Within the past 12 months, t he [...] 06/04/2024 4:30 PM EST Immunization/Injec tion Ancillary [facility] [address] [place] [address] Brayan Nurse [facility] [address] [place] [address] 06/23/2024 8:00 AM EST Office Visit Cardiology, [facility] [address] [place] [address] Ludmila Jha CRNP [address] [place] [address] 07/28/2024 1:20 PM EST Office Visit Family Practice [facility] [address] [place] [address] Kristin Miramontes CRNP [address] [place] [address] 08/11/2024 1:30 PM EST Office Visit Orthopaedics [facility] [address] [place] [address] Lewis Almaraz DO [address] [place] [address] 10/14/2024 9:30 AM EDT Cardiac Studies Cardiac Studies, [facility] [address] [place] [address] 10/16/2024 10:00 AM EDT Office Visit Family [facility] [address] [place] [address] Adán Fink MD [address] [place] [address] Health Maintenance Due Date Last Done Comments [...] this encounter Medical Devices Implanted Type Area Portfolio Management Marketing Device Identifier Shelf Expiration Date Model / Serial / Lot Lens Li61ao 13.00mm 16.50 - [id number] - [id number] Implanted:Qty: 1 on 01/29/2024 by Dayn Thomas MD at OR [facility] Left: Eye [employer]USCH [employer] LOMB 09/12/2028 [id number] / [id number] / [id number] documented as of this encounter Procedures Procedure Name Priority Date/Time Associated Diagnosis Comments ECHOCARDIOLOGY SCANNED RESULT 04/30/2024 OUTSIDE LAB RESULTS 04/29/2024 OUTSIDE LAB RESULTS 04/29/2024 documented in this encounter Results * ECHOCARDIOLOGY SCANNED RESULT (04/30/2024) 04/30/2024 No Physician Data Unknown ECHOCARDIOLOGY * OUTSIDE LAB RESULTS (04/29/2024) 04/29/2024 No Physician Data Unknown LABORATORY * OUTSIDE LAB RESULTS (04/29/2024) 04/29/2024 No Physician Data Unknown LABORATORY documented in this encounter Advance Directives * [...] Power of Attor deanna? No Care Teams Barrel Maker Relationship Specialty Start Date End Date Adán Fink MD 132 [facility] [place] [address] PCP - General Family Medicine 08/31/16 documented as of this encounter
--- OUTSIDE RECORDS SUMMARY | 2024-06-22 22:25 | External Medical Summary ---
Author Name Unknown Address Unknown Organization K0G:[facility] [place] [address] [place] [id number] Laboratory Report Ordering Provider Test Date Status ALEN JONES 05/07/2024 11:21:09 Final Observation Date Value Abnormality Reference (Units ) Status BUN 05/07/2024 11:21:09 16 6-20 (mg/dL) Final Creatinine 05/07/2024 11:21:09 1.2 0.6-1.2 (mg/dL) Final Glomerular filtration rate/1.73 sq M.predicted [Volume Rate/Area] in Serum, Plasma or Blood by Creatinine-based formula (CKD-EPI) 05/07/2024 11:21:09 62 >=60 (mL/min) Final eGFR is calculated based on the CKD-EPI 2020 equation. Sodium 05/07/2024 11:21:09 140 135-146 (m mol/L) Final Potassium 05/07/2024 11:21:09 3.8 3.5-5.1 (m mol/L) Final Cl 05/07/2024 11:21:09 102 98-107 (mm ol/L) Final CO2 05/07/2024 11:21:09 27 22-32 (mmo l/L) Final Anion gap 05/07/2024 11:21:09 11 7-15 (mmol /L) Final Glucose 05/07/2024 11:21:09 114 70-120 (mg /dL) Final Calcium 05/07/2024 11:21:09 9.1 8.4-10.2 ( mg/dL) Final Performing Location [facility] [place] [address] [place] [id number]
--- OUTSIDE RECORDS SUMMARY | 2024-06-22 22:25 | External Medical Summary | Summary of Care ---
Author Name Unknown Organization [facility] Address [address] [facility] [place] [address] Phone [phone] Care Team Providers Care State Editor Name Role Phone Adán Fink MD Primary Care Provider + Encounter Details Date Type Department Care Team (Late st Contact Info) Description 04/29/2024 Telephone Cardiology, [facility] [address] [place] [address] Ludmila Jha CRNP [address] [place] [address] Allergies No known active allergiesdocumented as of this encounter (statuses as of 05/16/2024) Medications Medication Sig Dispensed Refills Start Date [...] inj 1,000 mcgIndications:B12 deficiency 1000 mcg IM [id number] 04/23/2024 03/25/2025 Active documented as of this encounter (statuses as of 05/16/2024) Active Problems Problem Noted Date Diagnosed Date [...] CBC monitor lymphocytes. Declines shingrix 05/08 TTE [facility]--noraml EF mild LVH, Gr I mercado dys Dyslipidemia, goal LDL below 100 Mild intermittent asthma without complication Overview: Cold induced documented as of this encounter (statuses as of 05/16/2024) Resolved Problems Problem Noted Date Diagnosed Date [...] as of this encounter (statuses as of 05/16/2024) Immunizations Name Administration Dates Next Due COVID-19 mRNA, LNP-s, No Pre serve, 2-Dose Series ([employer]) 04/29/2021,09/14/2020 Covid-19, Mrna, Lnp-s, Pf, B ivalent, 30 Mcg, IM, 12 yrs and above ([employer]achi) 06/12/2022 Pneumococcal Conjugate Vacc, 13 Valent (Prevnar) [...] encounter Miscellaneous Notes * Telephone Encounter - Ronald Cardenas OSA - 05/06/2024 9:04 AM EDT Called patient, patient is aware of the date and time, and he asked if I could send a letter, I stated I will send him one today. * Telephone Encounter - Ronald Cardenas OSA - 05/06/2024 8:36 AM EDT Provider had an opening on, will also place patient on the wait list. RETURN CARDIOLOGY at 8:00 AM (30 min)Arrive by 7:45 AM Sunday June 23, 2024 Appointment Provider:Ludmila Jha CRNP in CARDIOLOGY [facility] * Telephone Encounter - Ronald Cardenas OSA - 05/01/2024 8:50 AM EDT Bettye, may I offer this patient a clos rel with Ludmila, in about a month? Thank you Ludmila. * Telephone Encounter - Ludmila Jha CRNP - 05/01/2024 5:31 AM EDT Yes, please try to keep a one month follow up for him. It will now be considered a "hospital discharge follow up" * Telephone Encounter - Ronald Cardenas OSA - 04/30/2024 10:20 AM EDT Ludmila, I was going to send a TE for this patient, because you had requested a one month FU. Withhis recent US, will he still need the one month FU, or a bit later? Please let me know, and if so, may we use one of your clos rel/ret slots for the appt. Thank you. * Telephone Encounter - Ludmila Jha CRNP - 04/29/2024 3:31 PM EDT Patient was seen in the office yesterday for routine cardiology follow up. Worsening lower extremity edema with Right worse than left. Also notation of increased erythema, increased warmth and tenderness to the RLE. Expressed concern over poor dietary compliance and obvious volume overload --Ordered labs and a DTPof Furosemide 80mg Daily x3 days (Was to start yesterday) with repeat BMP in one week. Keflex started for suspected cellulitis High suspicion for DVT of RLE. Again, was sent for labs following appt with +DDS > 5. Venous duplex done this afternoon which we do not have the official report back yet, but the preliminary showsan extensive DVT from CFV through Popliteal. Patient's son was contacted and was advised to take patient to [facility] immediately. Given concern of extensive nature of DVT, would also recommend that he undergo a CTA chest to exclude PE Would also likely benefit from IV diuresis My OV note has been faxed over to the ER. Nehal Aguila has addressed this and has already reached out to the ED Spoke with Amanda Finnegan PA-C via phone to make her aware that he will be arriving documented in this encounter Plan of Treatment Upcoming Encounters Date Type Department Care Team (Late st Contact Info) Description 06/04/2024 4:30 PM EST Immunization/Injec tion Ancillary [facility] [address] [place] [address] [place], Nurse [facility] [address] [place] [address] 06/23/2024 8:00 AM EST Office Visit Cardiology, [facility] [address] [place] [address] Ludmila Jha CRNP [address] [place] [address] 07/28/2024 1:20 PM EST Office Visit Family Practice [facility] [address] [place] [address] Kristin Miramontes CRNP [address] [place] [address] 08/11/2024 1:30 PM EST Office Visit Orthopaedics [facility] [address] [place] [address] Lewis Almaraz DO [address] [place] [address] 10/14/2024 9:30 AM EDT Cardiac Studies Cardiac Studies, [facility] [address] [place] [address] 10/16/2024 10:00 AM EDT Office Visit [facility] [address] [place] [address] Adán Fink MD [address] [place] [address] Health Maintenance Due Date Last Done Comments [...] this encounter Medical Devices Implanted Type Area Auxiliary Powerplant Operator Device Identifier Shelf Expiration Date Model / Serial / Lot Lens Li61ao 13.00mm 16.50 - [id number] - [id number] Implanted:Qty: 1 on 01/29/2024 by Dany Thomas MD at OR [facility] Left: Eye BAUSCH [employer] LOMB 09/12/2028 [id number] / [id number] / [id number] documented as of this encounter Advance Directives [...] Power of Attor deanna? No Care Teams State Editor Relationship Specialty Start Date End Date Adán Fink MD [address] [place] [address] PCP - General Family Medicine 08/31/16 documented as of this encounter
--- OUTSIDE RECORDS SUMMARY | 2024-06-22 22:25 | External Medical Summary | Summary of Care ---
Author Name Unknown Organization [facility] Address [address] [place] [facility] [place] [address] Phone [phone] Care Team Providers Care Fleet Administrator Name Role Phone Adán Fink MD Primary Care Provider + Encounter Details Date Type Department Care Team (Late st Contact Info) Description 04/30/2024 Orders Only PATIENT PORT[place] DO NOT DELETE THIS DEPT USED BY [place] [id number] Allergies No known active allergiesdocumented as of this encounter (statuses as of 04/30/2024) Medications Medication Sig Dispensed Refills Start Date [...] inj 1,000 mcgIndications:B12 deficiency 1000 mcg IM [id number] 04/23/2024 03/25/2025 Active documented as of this encounter (statuses as of 04/30/2024) Active Problems Problem Noted Date Diagnosed Date [...] as of this encounter (statuses as of 04/30/2024) Resolved Problems Problem Noted Date Diagnosed Date [...] as of this encounter (statuses as of 04/30/2024) Immunizations Name Administration Dates Next Due COVID-19 mRNA, LNP-s, No Pre serve, 2-Dose Series ([employer]) 04/29/2021,09/14/2020 Covid-19, Mrna, Lnp-s, Pf, B ivalent, 30 Mcg, IM, 12 yrs and above ([employer]) 06/12/2022 Pneumococcal Conjugate Vacc, 13 Valent (Prevnar) [...] 05/07/2024 10:30 AM EDT Office Visit Orthopaedics [facility] [address] [place] [address] Lewis Almaraz DO [address] [place] [address] 05/07/2024 11:00 AM EDT Nurse Only Ancillary [facility] [address] [place] [address] [facility], Nurse Fam Prac [facility] [address] [place] [address] 10/14/2024 9:30 AM EDT Cardiac Studies Cardiac Studies, [facility] [address] [place] [address] 10/16/2024 10:00 AM EDT Office Visit Family Practice [facility] [address] [place] [address] Adán Fink MD [address] [place] [address] Health Maintenance Due Date Last Done Comments [...] this encounter Medical Devices Implanted Type Area Spike Maker Device Identifier Shelf Expiration Date Model / Serial / Lot Lens Li61ao 13.00mm 16.50 - [id number] - [id number] Implanted:Qty: 1 on 01/29/2024 by Dany Thomas MD at OR [facility] Left: Eye [employer]USCH [employer] LOMB 09/12/2028 [id number] / [id number] / [id number] documented as of this encounter Advance Directives [...] Power of Attor deanna? No Care Teams Fleet Administrator Relationship Specialty Start Date End Date Adán Fink MD [address] [place] [address] PCP - General Family Medicine 08/31/16 documented as of this encounter
--- OUTSIDE RECORDS SUMMARY | 2024-06-22 22:25 | External Medical Summary | Summary of Care ---
Author Name Unknown Organization [facility] Address [address] [place] [address] Phone [phone] Care Team Providers Care Photoengraving Etcher Apprentice Name Role Phone Adán Fink MD Primary Care Provider + Encounter Details Date Type Department Care Team (Late st Contact Info) Description 05/02/2024 Population Health External Data Unspecified Department Allergies No known active allergiesdocumented as of this encounter (statuses as of 05/02/2024) Medications Medication Sig Dispensed Refills Start Date [...] inj 1,000 mcgIndications:B12 deficiency 1000 mcg IM [id number] 04/23/2024 03/25/2025 Active documented as of this encounter (statuses as of 05/02/2024) Active Problems Problem Noted Date Diagnosed Date [...] as of this encounter (statuses as of 05/02/2024) Resolved Problems Problem Noted Date Diagnosed Date [...] as of this encounter (statuses as of 05/02/2024) Immunizations Name Administration Dates Next Due COVID-19 mRNA, LNP-s, No Pre serve, 2-Dose Series ([employer]) 04/29/2021,09/14/2020 Covid-19, Mrna, Lnp-s, Pf, B ivalent, [...] 10:30 AM EDT Office Visit Orthopaedics [facility] [address] [place] [address] Lewis Almaraz DO [address] [place] [address] 05/07/2024 11:00 AM EDT Nurse Only Ancillary [facility] [address] [place] [address] [facility], Nurse Fam Prac [facility] [address] [place] [address] 10/14/2024 9:30 AM EDT Cardiac Studies Cardiac Studies, [facility] [address] [place] [address] 10/16/2024 10:00 AM EDT Office Visit Family Practice [facility] [address] [place] [address] Adán Fink MD [address] [place] [address] Health Maintenance Due Date Last Done Comments [...] this encounter Medical Devices Implanted Type Area Order Entry Clerk Device Identifier Shelf Expiration Date Model / Serial / Lot Lens Li61ao 13.00mm 16.50 - [id number] - [id number] Implanted:Qty: 1 on 01/29/2024 by Dany Thomas MD at OR [facility] Left: Eye BAUSCH [employer] LOMB 09/12/2028 [id number] / [id number] / [id number] documented as of this encounter Advance Directives [...] Power of Attor deanna? No Care Teams Photoengraving Etcher Apprentice Relationship Specialty Start Date End Date Adán Fink MD [address] [place] [address] PCP - General Family Medicine 08/31/16 documented as of this encounter
--- NOTE | 2024-06-23 06:45 | Hospitalist Progress Note ---
Date of Service June 23, 2024 Assessment & Plan (1) Acute upper GI bleed: Plan: Gastrointestinal bleeding Melena for 2 days Hemoglobin 15.8 on admission --> current Hgb 12.4 Will hold Eliquis H&H every 6 hours Blood consent obtained Gentle fluids Telemetry N.p.o. GI consulted - plan for EGD/ c-scope later today Recent right lower extremity DVT Holding Eliquis for GI bleed Vascular surgery consult for a possible IVC filter Chronic diastolic CHF Continue home Lasix Monitor for volume overload, hold lasix today (as he had bowel prep) (2) Hypothyroidism, acquired: Plan: Continue Synthroid 50 mcg daily. (3) Hyperlipidemia: Plan: Continue with simvastatin 20 mg daily. (4) Renal stone: Plan: Patient on CT of the abdomen was found to have multiple left renal calculi with some dilation of the left renal pelvis, there was no actual obstruction and no reported hydronephrosis however there was a suggestion of partial UPJ obstruction, patient was seen by urology and no further intervention at this time was recommended. Follow up w/ outpt urology Admission and Anticipated Discharge Date Admission Date: June 21, 2024 Subjective Pt seen in follow up of GI bleed Hx of DVT - was on Eliquis Plan for EGD/ c- scope later today Currently laying in bed in NAD, feeling fairly well. No fever, chills, chest pain, shortness of breath, no abd. pain. Hgb 12.4 this AM Review of Systems Review of Systems: All systems reviewed & are unremarkable except as noted in Subjective Physical Exam Physical Exam: General- WD/WN M in NAD Head- atraumatic Eyes- PERRL. Neck- supple Lungs- clear to auscultation no wheezing or crackles Heart- regular rate and rhythm; no murmur, no gallop. Abdomen- normal bowel sounds, soft, nontender, no distension Extremities- no pretibial edema, no erythema seen, moves extremities Neuro- alert, oriented PERRL,no facial palsy; no dysarthria; moves extremities Results & Data Results & Data Vital Signs (Past 12 Hours) Vital Signs Temp Pulse Pulse Resp BP Pulse Ox O2 Del Method 06/23/24 03:00 36.7 C 66 21 114/67 93 Room Air 06/22/24 23:30 72 06/22/24 22:50 37.1 C 71 19 110/62 97 Room Air 06/22/24 19:45 36.9 C 81 21 147/69 H 98 Room Air Laboratory Results 06/23/24 Range/Units 07:34 WBC 7.55 (4.8-10.8) K/ul RBC 4.03 L (4.70-6.10) M/uL Hgb 12.4 L (14.0-18.0) g/dl Hct 35.9 L (42.0-52.0) % MCV 89.1 (80.0-100.0) fL MCH 30.8 (25.0-34.0) pg MCHC 34.5 (32.0-36.0) g/dL RDW Std Deviation 42.1 (36.4-46.3) fL RDW Coeff of Vicki 13.0 (11.5-14.5) % Plt Count 128 L (130-400) K/uL MPV 12.6 H (9.4-12.4) fL Sodium 137 (136-145) mmol/L Potassium 2.9 L (3.5-5.1) mmol/L Chloride 105 (98-107) mmol/L Carbon Dioxide 23 (21-32) mmol/L Anion Gap 9 (3-11) BUN 9 (6-23) mg/dl Creatinine 0.92 (0.6-1.4) mg/dl Est Cr Clr Drug Dosing 65.9 ml/min eGFR 83.05 BUN/Creatinine Ratio 9.8 L (10-20) Glucose 93 (70-99(Fasting)) mg/dl Calcium 8.3 L (8.6-10.3) mg/dl Phosphorus 2.4 L (2.5-4.9) mg/dl Magnesium 1.7 (1.7-2.4) mg/dl Medications Administered Current Inpatient Medications Acetaminophen (Acetaminophen 325 Mg Tab) 650 mg PO Q4H PRN PRN Reason: Pain or Fever Stop: 07/21/24 04:57 Furosemide (Furosemide 40 Mg Tab) 40 mg PO DAILY [facility] Stop: 07/21/24 08:59 Last Admin: 06/22/24 08:16 Dose: 40 mg Pantoprazole Sodium 40 mg/ (Dextrose) 100 mls @ 20 mls/hr IV Q5H LY Stop: 07/20/24 19:44 Last Admin: 06/23/24 04:17 Dose: 8 mg/hr, 20 mls/hr Levothyroxine Sodium (Levothyroxine Sodium 50 Mcg Tablet) 50 mcg PO DAILYBB [facility] Stop: 07/21/24 06:29 Last Admin: 06/23/24 05:38 Dose: 50 mcg Melatonin (Melatonin 3 Mg Tab) 3 mg PO HS PRN PRN Reason: Sleep Stop: 07/21/24 19:21 Last Admin: 06/21/24 20:24 Dose: 3 mg Nitroglycerin (Nitroglycerin Sl 0.4 Mg/Tab Tab) 0.4 mg SL Q5M PRN PRN Reason: Chest Pain Stop: 07/21/24 04:57 Potassium Chloride (Potassium Chloride Crtab 20 Meq Tabcr) 20 meq PO DAILY LY Stop: 07/21/24 08:59 Last Admin: 06/22/24 08:16 Dose: 20 meq Sertraline HCl (Sertraline Hcl 50 Mg Tablet) 50 mg PO DAILY LY Stop: 07/21/24 08:59 Last Admin: 06/22/24 08:16 Dose: 50 mg Simvastatin (Simvastatin 20 Mg Tab) 20 mg PO DAILY LY Stop: 07/21/24 08:59 Last Admin: 06/22/24 08:16 Dose: 20 mg (3) Hyperlipidemia Hyperlipidemia type: mixed hyperlipidemia Qualified Code(s): E78.2 - Mixed hyperlipidemia
[2024-06-23 08:02] LABS: Hematocrit (blood only) 35.9 % (42.0-52.0); Hemoglobin 12.4 g/dl (14.0-18.0); Mean Corpuscular Hemoglobin 30.8 pg (25.0-34.0); Mean Corpuscular Hgb Conc 34.5 g/dL (32.0-36.0); Mean Corpuscular Volume 89.1 fL (80.0-100.0); Mean Platelet Volume 12.6 fL (9.4-12.4); Platelet Count 128 K/uL (130-400); RDW Standard Deviation 42.1 fL (36.4-46.3); Red Blood Count 4.03 M/uL (4.70-6.10); White Blood Count 7.55 K/ul (4.8-10.8)
[2024-06-23 08:15] LABS: Potassium 2.9 mmol/L (3.5-5.1)
[2024-06-23 08:16] LABS: BUN Creatinine Ratio 9.8 (10-20); Calcium 8.3 mg/dl (8.6-10.3); Creatinine Clr Calc Pharmacy 65.9 ml/min; Magnesium 1.7 mg/dl (1.7-2.4); Phosphorus 2.4 mg/dl (2.5-4.9)
[2024-06-23] MEDS: POTASSIUM CHLORIDE CRTAB 20 MEQ TABCR PO STA (09:21)
[2024-06-23] MEDS: POTASSIUM CHLORIDE / WTR 10 MEQ/100 ML PLCT IV ONE (09:55)
[2024-06-23] MEDS: SODIUM CHLORIDE 0.9% 500 ML IV ONE (09:55)
--- NOTE | 2024-06-23 10:44 | Gastroenterology Progress Note ---
Date of Service June 23, 2024 Assessment & Plan (1) GIB (gastrointestinal bleeding): Plan Patient was not able to get in all of his prep and stools have not been clear as of yet. I discussed the case with Dr. Palza who recommends in light of this, that we have the patient complete the rest of his prep today to ensure that we are able to successfully perform the colonoscopy tomorrow. - will reschedule EGD and colonoscopy for 06/24/24. - continue with prep today. - monitor hgb/hct. transfuse as needed. - continue with protonix drip for now. - further recommendations will follow. see MD jaquez. Admission and Anticipated Discharge Date Admission Date: June 21, 2024 Supervising Physician Co-Signing Physician Notes I examined the patient and reviewed patient's chart , laboratory data and imaging studies. I agree with with assessment and plan of care as suggested by advanced practice provider Subjective Patient with history of hematemesis and dark stools prior to admission. no hematemesis since admission. He was prepping yesterday for his colonoscopy, but he has only been able to get in about 50-60% of his prep. He is not sure if stools have been clear. I spoke with nursing and so far, he has not moved his bowels today, but stools have not reportedly been clear. patient denies further dark stools. no brbpr. 06/23/24 hgb 12.4. 06/22/24 hgb 12 Review of Systems Review of Systems: All systems reviewed & are unremarkable except as noted in HPI & below Physical Exam Constitutional: WD/WN, vitals as above Respiratory: normal respiratory effort, lungs clear to auscultation Cardiovascular: Rate/Rhythm: regular rate and regular rhythm Gastrointestinal (Abdomen): normal bowel sounds, soft, nontender, no hepatosplenomegaly Psychiatric: Orientation: alert and oriented x 3 Affect: euthymic affect Results & Data Results & Data Vital Signs (Past 12 Hours) Vital Signs Temp Pulse Pulse Resp BP Pulse Ox O2 Del Method 06/23/24 08:31 97.3 F L 63 17 101/59 L 96 Room Air 06/23/24 03:00 98.1 F 66 21 114/67 93 Room Air 06/22/24 23:30 72 06/22/24 22:50 98.8 F 71 19 110/62 97 Room Air Coding Level of Care Code 56506 SUB INP/OBS CARE 235MIN Diagnoses GIB (gastrointestinal bleeding) K92.2
[2024-06-23] MEDS ORDERED: POTASSIUM CHLORIDE CRTAB 20 MEQ TABCR PO ONE (12:00)
[2024-06-23] MEDS ORDERED: Nursing to Pharmacy Communication SCH (12:30)
[2024-06-23] MEDS: POTASSIUM CHLORIDE CRTAB 20 MEQ TABCR PO ONE (14:04)
--- NOTE | 2024-06-24 08:19 | Hospitalist Progress Note ---
Date of Service June 24, 2024 Assessment & Plan (1) Acute upper GI bleed: Plan: Gastrointestinal bleeding Melena for 2 days Hemoglobin 15.8 on admission --> current Hgb 13.2 Will hold Eliquis H&H every 6 hours Blood consent obtained Gentle fluids Telemetry N.p.o. GI consulted - plan for EGD/ c-scope later today Recent right lower extremity DVT Holding Eliquis for GI bleed Vascular surgery consult for a possible IVC filter Chronic diastolic CHF Continue home Lasix Monitor for volume overload, hold lasix today (as he had bowel prep) (2) Hypothyroidism, acquired: Plan: Continue Synthroid 50 mcg daily. (3) Hyperlipidemia: Plan: Continue with simvastatin 20 mg daily. (4) Renal stone: Plan: Patient on CT of the abdomen was found to have multiple left renal calculi with some dilation of the left renal pelvis, there was no actual obstruction and no reported hydronephrosis however there was a suggestion of partial UPJ obstruction, patient was seen by urology and no further intervention at this time was recommended. Follow up w/ outpt urology Admission and Anticipated Discharge Date Admission Date: June 21, 2024 Subjective Pt seen in follow up of GI bleed Hx of DVT - was on Eliquis Plan for EGD/ c- scope later today (was supposed to go for endoscopy yesterday but did not finish the prep) Currently sitting up in bed in NAD, feeling fairly well. No fever, chills, chest pain, shortness of breath, no abd. pain. Hgb 13.2 this AM, stable Review of Systems Review of Systems: All systems reviewed & are unremarkable except as noted in Subjective Physical Exam Physical Exam: General- WD/WN M in NAD Head- atraumatic Eyes- PERRL. Neck- supple Lungs- clear to auscultation no wheezing or crackles Heart- regular rate and rhythm; no murmur, no gallop. Abdomen- normal bowel sounds, soft, nontender, no distension Extremities- no pretibial edema, no erythema seen, moves extremities Neuro- alert, oriented PERRL,no facial palsy; no dysarthria; moves extremities Results & Data Results & Data Vital Signs (Past 12 Hours) Vital Signs Temp Pulse Pulse Resp BP Pulse Ox O2 Del Method 06/24/24 07:49 36.3 C L 70 18 118/75 95 Room Air 06/24/24 03:22 36.7 C 63 16 95/58 L 92 Room Air 06/24/24 00:07 86 06/23/24 22:25 36.7 C 72 22 140/64 97 Room Air Laboratory Results 06/24/24 Range/Units 08:42 WBC 7.23 (4.8-10.8) K/ul RBC 4.28 L (4.70-6.10) M/uL Hgb 13.2 L (14.0-18.0) g/dl Hct 38.7 L (42.0-52.0) % MCV 90.4 (80.0-100.0) fL MCH 30.8 (25.0-34.0) pg MCHC 34.1 (32.0-36.0) g/dL RDW Std Deviation 42.5 (36.4-46.3) fL RDW Coeff of Vicki 13.0 (11.5-14.5) % Plt Count 149 (130-400) K/uL MPV 12.5 H (9.4-12.4) fL Sodium 138 (136-145) mmol/L Potassium 3.6 D (3.5-5.1) mmol/L Chloride 105 (98-107) mmol/L Carbon Dioxide 24 (21-32) mmol/L Anion Gap 9 (3-11) BUN 7 (6-23) mg/dl Creatinine 0.92 (0.6-1.4) mg/dl Est Cr Clr Drug Dosing 65.9 ml/min eGFR 83.05 BUN/Creatinine Ratio 7.6 L (10-20) Glucose 89 (70-99(Fasting)) mg/dl Calcium 8.7 (8.6-10.3) mg/dl Phosphorus 2.3 L (2.5-4.9) mg/dl Magnesium 1.8 (1.7-2.4) mg/dl Medications Administered Current Inpatient Medications Acetaminophen (Acetaminophen 325 Mg Tab) 650 mg PO Q4H PRN PRN Reason: Pain or Fever Stop: 07/21/24 04:57 Furosemide (Furosemide 40 Mg Tab) 40 mg PO DAILY LY Stop: 07/21/24 08:59 Last Admin: 06/23/24 09:22 Dose: Not Given Pantoprazole Sodium 40 mg/ (Dextrose) 100 mls @ 20 mls/hr IV Q5H LY Stop: 07/20/24 19:44 Last Admin: 06/24/24 04:44 Dose: 8 mg/hr, 20 mls/hr Levothyroxine Sodium (Levothyroxine Sodium 50 Mcg Tablet) 50 mcg PO DAILYBB [facility] Stop: 07/21/24 06:29 Last Admin: 06/24/24 05:53 Dose: 50 mcg Melatonin (Melatonin 3 Mg Tab) 3 mg PO HS PRN PRN Reason: Sleep Stop: 07/21/24 19:21 Last Admin: 06/23/24 22:49 Dose: 3 mg Nitroglycerin (Nitroglycerin Sl 0.4 Mg/Tab Tab) 0.4 mg SL Q5M PRN PRN Reason: Chest Pain Stop: 07/21/24 04:57 Potassium Chloride (Potassium Chloride Crtab 20 Meq Tabcr) 20 meq PO DAILY [facility] Stop: 07/21/24 08:59 Last Admin: 06/23/24 09:21 Dose: 20 meq Sertraline HCl (Sertraline Hcl 50 Mg Tablet) 50 mg PO DAILY LY Stop: 07/21/24 08:59 Last Admin: 06/23/24 09:21 Dose: 50 mg Simvastatin (Simvastatin 20 Mg Tab) 20 mg PO DAILY LY Stop: 07/21/24 08:59 Last Admin: 06/23/24 09:21 Dose: 20 mg (3) Hyperlipidemia Hyperlipidemia type: mixed hyperlipidemia Qualified Code(s): E78.2 - Mixed hyperlipidemia
--- NOTE | 2024-06-24 08:34 | Consultation ---
Date of Consultation June 24, 2024 Assessment & Plan (1) DVT (deep venous thrombosis): Pt with DVT and started on eliquis in April 2024. No imaging available to review. Pt hgb has remained stable since admission, no transfusion required, despite possible GI bleeding. Currently no indications to place IVC filter. Pending abnormal findings on EGD/colonoscopy today, will be happy to reeval if needed. History of Present Illness Reason for Consultation: DVT, need ivc filter Attending Physician: Heron Gore MD History of Present Illness 84yo m with hx of HTN, hypothyroidism, dyslipidemia, kidney stones, and DVT, seen in consultation today for possible iVC filter placement. Pt states he developed a DVT in April and has been on eliquis since that time. No imaging of DVT is available to review. Came to [facility] with flank pain and found to have renal stone. Staff felt his stool appeared black, and testing positive for occult blood. Despite this, his hgb has remained stable and has not required transfusion. GI planning on egd/colonscopy today to better evaluate. Pt admits chronic BLE edema. Denies STEVENSON, fever, chest pain, SOB, abd pain, N/V, rest pain, claudication, other complaints. Allergies Allergy/AdvReac Type Severity Reaction Status Date / Time No Known Allergies Allergy Unverified 08/24/09 14:15 Home Medications Medication Instructions Recorded Confirmed Type furosemide 40 mg tablet 40 mg PO DAILY 04/29/24 06/20/24 History levothyroxine 50 mcg tablet 50 mcg PO DAILY 04/29/24 06/20/24 History potassium chloride 20 mEq 20 meq PO DAILY 04/29/24 06/20/24 History tablet,extended release(part/cryst) sertraline 50 mg tablet 50 mg PO DAILY 04/29/24 06/20/24 History simvastatin 20 mg tablet 20 mg PO DAILY 04/29/24 06/20/24 History apixaban 5 mg (74 tabs) tablets in 5 mg PO Q12H #74 ea 05/02/24 06/20/24 Rx a dose pack (Eliquis) Patient History Social History Smoking Status: Never smoker Hx Alcohol Use: No Hx Substance Use: No Preferred Language: Romanian Communication Ability: Effective Micropaleontologist Required: No Beliefs That Will Affect Care: None Current Living Situation: Alone Other Information That Helps Us Care for You: No Feels Safe at Home: Yes Safety Concerns: Feels Safe At This Time Assistive Devices: Cane Review of Systems Review of Systems: All systems reviewed & are unremarkable except as noted in HPI & below Physical Exam Constitutional: WD/WN, vitals as above cooperative and comfortable; not in distress Neck: trachea midline Respiratory: normal respiratory effort, lungs clear to auscultation Auscultation: + diminished lung sounds Cardiovascular: Rate/Rhythm: regular rate and regular rhythm Vessels: posterior tibial pulses present, dorsalis pedis pulses present and radial pulses present; + abnormal peripheral pulses Extremities: normal capillary refill and + edema Gastrointestinal (Abdomen): Inspection/Auscultation: abdomen normal to inspection and normal bowel sounds Percussion/Palpation: abdomen soft; abdomen nontender Musculoskeletal: no cyanosis or clubbing, extremities motor strength 5/5 Skin: no rashes, warm and dry Neurologic: moves all extremities and awake; no focal motor deficits and not confused Psychiatric: A+Ox3, euthymic affect Results & Data Vital Signs (Past 12 Hours) Vital Signs Temp Pulse Pulse Resp BP Pulse Ox O2 Del Method 06/24/24 07:49 36.3 C L 70 18 118/75 95 Room Air 06/24/24 03:22 36.7 C 63 16 95/58 L 92 Room Air 06/24/24 00:07 86 06/23/24 22:25 36.7 C 72 22 140/64 97 Room Air
[2024-06-24 08:59] LABS: Hematocrit (blood only) 38.7 % (42.0-52.0); Hemoglobin 13.2 g/dl (14.0-18.0); Mean Corpuscular Hemoglobin 30.8 pg (25.0-34.0); Mean Corpuscular Hgb Conc 34.1 g/dL (32.0-36.0); Mean Corpuscular Volume 90.4 fL (80.0-100.0); Mean Platelet Volume 12.5 fL (9.4-12.4); Platelet Count 149 K/uL (130-400); RDW Standard Deviation 42.5 fL (36.4-46.3); Red Blood Count 4.28 M/uL (4.70-6.10); White Blood Count 7.23 K/ul (4.8-10.8)
--- NOTE | 2024-06-24 09:19 | History & Physical Bridge Note ---
Date of Service June 24, 2024 History & Physical Bridge Note I have examined the patient, reviewed the History & Physical and in the interval since the performance of the History & Physical I have noted the following changes of clinical significance: no changes noted. he was able to finish his bowel prep and tells me that stools are now clear. no nausea, vomiting, abdominal pain, rectal bleeding, or further melena. no chest pain or sob. - will plan for EGD and colonoscopy today. Supervising Physician Co-Signing Physician Notes I examined the patient and reviewed patient's chart , laboratory data and imaging studies. I agree with with assessment and plan of care as suggested by advanced practice provider
[2024-06-24 09:48] LABS: BUN Creatinine Ratio 7.6 (10-20); Calcium 8.7 mg/dl (8.6-10.3); Creatinine Clr Calc Pharmacy 65.9 ml/min; Magnesium 1.8 mg/dl (1.7-2.4); Phosphorus 2.3 mg/dl (2.5-4.9); Potassium 3.6 mmol/L (3.5-5.1)
--- NOTE | 2024-06-24 14:59 | Anesthesiology Consultation ---
Date of Service June 24, 2024 Assessment & Plan Chart Review Chart Review: Acceptable Risk for Surgery and Patient NOT seen in Pre Admission Testing Consults Requested none ASA ASA3 Proposed Anesthesia Anesthesia Type: MAC Risk / Benefits Reviewed With: PT / POA / Parent / Guardian, Accepts Plan and Informed Consent Obtained History Surgery Operation Date: 06/24/24 16:30 Proposed Procedures p Colonoscopy EGD Dr. Plaza - Dipak Plaza MD Height/Weight Height: 5 ft 11 in Weight: 84.8 kg Allergies Allergy/AdvReac Type Severity Reaction Status Date / Time No Known Allergies Allergy Unverified 08/24/09 14:15 Medications Home Medications Medication Instructions Recorded Confirmed Last Taken furosemide 40 mg tablet 40 mg PO DAILY 04/29/24 06/20/24 Unknown levothyroxine 50 mcg tablet 50 mcg PO DAILY 04/29/24 06/20/24 Unknown potassium chloride 20 mEq 20 meq PO DAILY 04/29/24 06/20/24 Unknown tablet,extended release(part/cryst) sertraline 50 mg tablet 50 mg PO DAILY 04/29/24 06/20/24 Unknown simvastatin 20 mg tablet 20 mg PO DAILY 04/29/24 06/20/24 Unknown apixaban 5 mg (74 tabs) tablets in 5 mg PO Q12H #74 ea 05/02/24 06/20/24 Unknown a dose pack ([employer]) Active Medications Generic Name Dose Route Start Last Admin Trade Name Freq PRN Reason Stop Dose Admin Furosemide 40 mg 06/21/24 09:00 06/24/24 08:52 Furosemide 40 Mg Tab PO 07/21/24 08:59 Not Given DAILY LY Pantoprazole Sodium 40 mg/ 100 mls @ 20 mls/hr 06/20/24 19:45 06/24/24 13:43 Dextrose IV 07/20/24 19:44 8 mg/hr Q5H LY 20 mls/hr Administration 8 MG/HR Levothyroxine Sodium 50 mcg 06/21/24 06:30 06/24/24 05:53 Levothyroxine Sodium 50 Mcg Tablet PO 07/21/24 06:29 50 mcg DAILYBB LY Administration Melatonin 3 mg 06/21/24 19:22 06/23/24 22:49 Melatonin 3 Mg Tab PO 07/21/24 19:21 3 mg HS PRN Administration Sleep Potassium Chloride 20 meq 06/21/24 09:00 06/24/24 08:50 Potassium Chloride Crtab 20 Meq Tabcr PO 07/21/24 08:59 20 meq DAILY LY Administration Sertraline HCl 50 mg 06/21/24 09:00 06/24/24 08:44 Sertraline Hcl 50 Mg Tablet PO 07/21/24 08:59 50 mg DAILY LY Administration Simvastatin 20 mg 06/21/24 09:00 06/24/24 08:44 Simvastatin 20 Mg Tab PO 07/21/24 08:59 20 mg DAILY LY Administration NPO Date Last Intake of Fluids: 06/24/24 Time Last Intake of Fluids: 08:45 Date Last Intake of Solids: 06/16/24 Exercise / Class Metabolic Activity II 4-5 Yardwork/Stairs/Walk up hill Past Anesthesia History No Hx of Anesthesia Complications and No Family Hx of Anesthesia Complications History of PONV No Hx of PONV and No Hx of Motion Sickness Social History Smoking Status: Never smoker Hx Alcohol Use: No Hx Substance Use: No Physical Exam Vital Signs Last Vital Signs Temp 36.6 C 06/24/24 14:51 Pulse 70 06/24/24 14:51 Resp 16 06/24/24 14:51 BP 131/68 06/24/24 14:51 Pulse Ox 98 06/24/24 14:51 O2 Del Method Room Air 06/24/24 14:51 O2 Flow Rate 2 06/21/24 04:25 ENMT Mouth: + dentures (upper) Thyromental Distance: > or= 3.5 Finger Breadths Mallampati Class: II Neck normal visual inspection Respiratory normal respiratory effort Auscultation: lungs clear to auscultation bilaterally Cardiovascular Rate/Rhythm: regular rate and regular rhythm Psychiatric Orientation: alert Testing Laboratory Results 06/24/24 08:42 06/24/24 08:42 PT 10.8 Seconds (9.0-12.0) 06/20/24 19:05 INR 1.0 (0.9-1.1) 06/20/24 19:05 APTT 21 Seconds (21-31) 06/20/24 19:05 Blood Type A Negative 06/20/24 19:05 Antibody Screen NEGATIVE 06/20/24 19:05
--- NOTE | 2024-06-24 16:23 | GI REPORT ---
[facility] Patient: MJ MCNEILL : 1940 Sex at : Male Age: 84 Years Procedure: Upper GI endoscopy Date: 06/24/2024 Attending Physician: Dipak Plaza MD Referring MD: Referred Self Indications: - Recent melena Medications: - Monitored Anesthesia Care Complications: - No immediate complications. Estimated Blood Loss: - Estimated blood loss: None. Procedure: - The egd scope was introduced through the mouth and advanced to the second part of the duodenum. - The upper GI endoscopy was accomplished without difficulty. - The patient tolerated the procedure well. 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 The maximum longitudinal extent of these mucosal changes was 15 cm in length. Perez's mucosa extending from 21 cm to top of gastric folds at 36 cm. Mucosa was biopsied with a cold forceps for histology. A total of 6 specimen bottles were sent to pathology. - Two cratered esophageal ulcers with no bleeding and no stigmata of recent bleeding were found 35 cm from the incisors. The largest lesion was 10 mm in largest dimension. Biopsies were taken with a cold forceps for histology. - A 2 cm hiatal hernia was present. Otherwise the stomach was normal. - The exam of the stomach was otherwise normal. - The examined duodenum was normal. 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 Biopsied. - Perez's mucosa extending from 21 cm to top of gastric folds at 36 cm. - Esophageal ulcers with no bleeding and no stigmata of recent bleeding. Biopsied. - 2 cm hiatal hernia. - Otherwise the stomach was normal. - Normal examined duodenum. Recommendation: - Observe patient's clinical course. - Follow-up EGD in 6 to 8 weeks to assure ulcer healing. - Continue present medications. - Await pathology results. - Return to GI office at appointment to be scheduled. - Surveillance of Perez's esophagus will be determined by biopsy results Procedure Code(s): - 33194, Esophagogastroduodenoscopy, flexible, transoral; with biopsy, single or multiple Diagnosis Code(s): - K22.10, Ulcer of esophagus without bleeding - K44.9, Diaphragmatic hernia without obstruction or gangrene - K22.89, Other specified disease of esophagus CPT(R) - 2023 copyright [employer]. All Rights Reserved. The CPT codes, CCI edits and ICD codes generated are intended as suggestions and were generated based on input data. These codes are preliminary and upon keno attendant review may be revised to meet current compliance and payer requirements. The provider is responsible for the final determination of appropriate codes, and modifiers. Dipak Plaza M.D. , This document has been electronically signed. Note Initiated:06/24/2024 Note Completed:06/24/2024 4:22 PM \\[email or web address]\InterfaceData\Data\Provation\Results\LIVE\[id number]
--- NOTE | 2024-06-24 16:27 | GI REPORT ---
[facility] Patient: MJ MCNEILL : 1940 Sex at : Male Age: 84 Years Procedure: Colonoscopy Date: 06/24/2024 Attending Physician: Dipak Plaza MD Referring MD: Referred Self Indications: - Gastrointestinal bleeding Medications: Complications: - No immediate complications. Estimated Blood Loss: - Estimated blood loss: None. Procedure: - The pediatric colonoscope was introduced through the anus and advanced to the cecum, identified by appendiceal orifice and ileocecal valve. - The colonoscopy was somewhat difficult due to significant looping. Successful completion of the procedure was aided by applying abdominal pressure and straightening and shortening the scope to obtain bowel loop reduction. - The quality of the bowel preparation was evaluated using the BBPS ([place] Bowel Preparation Scale) with scores of: Right Colon = 2 (minor amount of residual staining, small fragments of stool and/or opaque liquid, but mucosa seen well), Left Colon = 3 (entire mucosa seen well with no residual staining, small fragments of stool or opaque liquid) and Transverse Colon = 3 (entire mucosa seen well with no residual staining, small fragments of stool or opaque liquid). The total BBPS score equals 8. The quality of the bowel preparation was good. Findings: - The perianal and digital rectal examinations were normal. - Three sessile polyps were found in the cecum and ascending colon. The polyps were medium (7-9 mm) in size. These polyps were removed with a cold snare. Resection and retrieval were complete. The smallest polyp from the ascending colon was not retrieved. - Multiple medium-mouthed and large-mouthed diverticula were found in the entire colon. - The exam was otherwise without abnormality. Impression: - Three medium (7-9 mm) polyps in the cecum and in the ascending colon, removed with a cold snare. Resected and retrieved. - The smallest polyp from the ascending colon was not retrieved. - Diverticulosis in the entire examined colon. - The examination was otherwise normal. Recommendation: - Return to GI office at appointment to be scheduled. - Await pathology results. - Surveillance colonoscopy depending on overall clinical status. Procedure Code(s): - 10240, Colonoscopy, flexible; with removal of tumor(s), polyp(s), or other lesion(s) by snare technique Diagnosis Code(s): - K92.2, Gastrointestinal hemorrhage, unspecified - D12.0, Benign neoplasm of cecum - D12.2, Benign neoplasm of ascending colon - K57.30, Diverticulosis of large intestine without perforation or abscess without bleeding CPT(R) - 2023 copyright [employer]. All Rights Reserved. The CPT codes, CCI edits and ICD codes generated are intended as suggestions and were generated based on input data. These codes are preliminary and upon auditing coder review may be revised to meet current compliance and payer requirements. The provider is responsible for the final determination of appropriate codes, and modifiers. Dipak Plaza M.D., MD This document has been electronically signed. Note Initiated:06/24/2024 Note Completed:06/24/2024 4:27 PM [email or web address]\Results\[email or web address]\[id number]
--- NOTE | 2024-06-24 16:30 | Communication Note ---
Date of Service: June 24, 2024 EGD: 2 small distal esophageal ulcers with no stigmata of recent bleeding. Biopsies were obtained. 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 Colonoscopy: Multiple diverticula, 3 small benign polyps in the cecum and ascending colon. Recommendations: Advance diet. Continue proton pump inhibitor, omeprazole 40 mg once a day. Follow-up biopsy results. Follow-up endoscopy in 6 to 8 weeks to assure healing of esophageal ulcers. Follow-up in the GI office to discuss biopsy results from Perez's mucosa. Endoscopic surveillance to be discussed. Colonoscopy surveillance will depend on overall clinical status.
--- NOTE | 2024-06-24 16:36 | Anesthesiology Progress Note ---
Date of Service June 24, 2024 Anesthesia Post Procedure Vital Signs Vital Signs: Temp Pulse Pulse Resp BP Pulse Ox O2 Del Method 06/24/24 16:33 75 14 126/57 L 98 Room Air 06/24/24 16:18 79 14 119/39 L 97 Room Air 06/24/24 15:46 36.8 C 86 18 152/74 H 95 Room Air 06/24/24 14:51 36.6 C 70 16 131/68 98 Room Air 06/24/24 11:29 36.4 C L 64 18 113/64 96 Room Air 06/24/24 11:26 69 06/24/24 07:49 36.3 C L 70 18 118/75 95 Room Air 06/24/24 03:22 36.7 C 63 16 95/58 L 92 Room Air 06/24/24 00:07 86 06/23/24 22:25 36.7 C 72 22 140/64 97 Room Air 06/23/24 19:33 36.6 C 70 21 109/64 96 Room Air Transfer of Care Handoff Completed per policy Notes Mental Status: alert / awake / arousable and participated in evaluation Patient Amnestic to Procedure: Yes Nausea / Vomiting: adequately controlled Pain: adequately controlled Airway Patency, RR, SpO2: stable & adequate BP & HR: stable & adequate Hydration State: stable & adequate Anesthetic Complications: no major complications apparent
[2024-06-24] MEDS: PROPOFOL IV EMULSION 10 MG/ML 20 ML VIAL IV ONE ×2 (20:04)
[2024-06-24] MEDS: LIDOCAINE 2% 2 ML VIAL/AMP(20MG/ML) INFIL ONE (20:04)
[2024-06-25 07:55] LABS: Hemoglobin 11.6 g/dl (14.0-18.0); Mean Corpuscular Hemoglobin 31.3 pg (25.0-34.0); Mean Corpuscular Hgb Conc 35.2 g/dL (32.0-36.0); Mean Corpuscular Volume 88.9 fL (80.0-100.0); Mean Platelet Volume 12.9 fL (9.4-12.4); Platelet Count 127 K/uL (130-400); RDW Coefficient of Variation 12.8 % (11.5-14.5); RDW Standard Deviation 41.8 fL (36.4-46.3); Red Blood Count 3.71 M/uL (4.70-6.10)
[2024-06-25 08:02] LABS: BUN Creatinine Ratio 9.3 (10-20); Calcium 8.3 mg/dl (8.6-10.3); Creatinine Clr Calc Pharmacy 70.5 ml/min; Magnesium 1.8 mg/dl (1.7-2.4); Phosphorus 2.6 mg/dl (2.5-4.9); Potassium 3.4 mmol/L (3.5-5.1)
--- NOTE | 2024-06-25 12:00 | Gastroenterology Progress Note ---
Date of Service June 25, 2024 Assessment & Plan (1) Esophageal ulcer: Plan Patient feeling well. EGD with esophageal ulcers. Case discussed with Dr. Plaza. - recommend EGD in 6-8 weeks to assess healing. I will have our office reach out for scheduling. - would recommend patient start on protonix 40mg bid at discharge. - he can follow up in the GI office after repeat EGD. sooner if problems. Admission and Anticipated Discharge Date Admission Date: June 21, 2024 Supervising Physician Co-Signing Physician Notes I examined the patient and reviewed patient's chart , laboratory data and imaging studies. I agree with with assessment and plan of care as suggested by advanced practice provider. EGD will be arranged in 6 to 8 weeks, surveillance of esophageal ulcer. 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 Subjective Patient tells me that he feels well. He is tolerating diet. no further melena. no other GI concerns. EGD 06/24/24: 2 small distal esophageal ulcers with no stigmata of recent bleeding. Biopsies were obtained. 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 Colonoscopy 06/24/24: Multiple diverticula, 3 small benign polyps in the cecum and ascending colon. Review of Systems Review of Systems: All systems reviewed & are unremarkable except as noted in HPI & below Physical Exam Constitutional: WD/WN, vitals as above Respiratory: normal respiratory effort, lungs clear to auscultation Cardiovascular: Rate/Rhythm: regular rate and regular rhythm Gastrointestinal (Abdomen): normal bowel sounds, soft, nontender, no hepatosplenomegaly Psychiatric: Orientation: alert and oriented x 3 Affect: euthymic affect Results & Data Results & Data Vital Signs (Past 12 Hours) Vital Signs Temp Pulse Pulse Resp BP Pulse Ox O2 Del Method 06/25/24 10:57 97.7 F 79 19 109/67 97 Room Air 06/25/24 07:42 97.9 F 72 18 127/65 97 Room Air 06/25/24 06:10 70 06/25/24 02:51 98.2 F 67 18 112/66 95 Room Air Coding Level of Care Code 29464 SUB INP/OBS CARE 1/25MIN Diagnoses Esophageal ulcer K22.10
[2024-06-25] MEDS: APIXABAN 5 MG TABLET PO SCH (12:07)
--- NOTE | 2024-06-25 15:32 | Hospitalist Progress Note ---
Date of Service June 25, 2024 Assessment & Plan (1) Esophageal ulcer: (2) Acute upper GI bleed: Plan pt is an 84-year-old male with past medical history significant for hyperlipidemia, hypothyroidism, mild intermittent asthma, right bundle branch block, B12 deficiency, GERD, chronic back pain, restless leg syndrome, history of depression, hx of right lower extremity DVT on Eliquis, acute diastolic CHF presenting with 2 days of black stools. Gastrointestinal bleeding Melena for 2 days Hemoglobin stable at 15.8 on admission, downtrended to 11 held Eliquis Was on IV ppi GI was consulted, recommended/stated the following: -s/p EGD and colonoscopy on 06/24/24 EGD noting concern for Perez's esophagitis, 2 cm hiatal hernia, normal stomach, normal duodenum colonoscopy noting polyps in the cecum and ascending colon, diverticulosis -GI Noted the following:"EGD with esophageal ulcers...recommend EGD in 6-8 weeks to assess healing...would recommend patient start on protonix 40mg bid at discharge..." "EGD will be arranged in 6 to 8 weeks, surveillance of esophageal ulcer. 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 Plaza on 06/25/2024 and he advised that Eliquis can be resumed. Monitor H&H and transfuse as needed for hemoglobin less than 7 Recent right lower extremity DVT Holding Eliquis for GI bleed Vascular surgery consult for a possible IVC filter. Noted/stated the following: "Pt with DVT and started on eliquis in April 2024. No imaging available to review. Pt hgb has remained stable since admission, no transfusion required, despite possible GI bleeding. Currently no indications to place IVC filter... " Case discussed with senior research executive Dr. Plaza on 06/25/2024 and he advised that Eliquis can be resumed. Chronic diastolic CHF Continue home Lasix Monitor for volume overload Hypothyroidism On Synthroid Depression On Zoloft Diet: regular DVT prophylaxis:SCDs, Eliquis Dispo: PT/OT ordered for further recs Admission and Anticipated Discharge Date Admission Date: June 21, 2024 Subjective patient was seen sitting in bed States he has not been out of bed and ambulating much Anxious for discharge, noted he had not yet been seen by gastroenterology today Review of Systems Review of Systems: All systems reviewed & are unremarkable except as noted in Subjective Physical Exam Physical Exam: General: Alert, oriented. No acute distress Skin: Noted bruise on right anterior james Psych: Appropriate mood and affect HEENT: NC/AT CV: RRR Resp: Breath sounds clear bilaterally, no increased effort of breathing Abdomen:Soft, nontender Extremities:Trace edema in lower extremities bilaterally. Results & Data Results & Data Vital Signs (Past 12 Hours) Vital Signs Temp Pulse Pulse Resp BP Pulse Ox O2 Del Method 06/25/24 13:00 79 06/25/24 10:57 36.5 C 79 19 109/67 97 Room Air 06/25/24 07:42 36.6 C 72 18 127/65 97 Room Air 06/25/24 06:10 70 Diagnostic Findings Abdomen/Pelvis CT 06/20/24 19:23 Exam(s): CT ABDOMEN + PELVIS With Contrast IV Amt: 93ml optiray 320 EXAM: CT Abdomen and Pelvis With Intravenous Contrast CLINICAL HISTORY: Reason for exam: LLQ pain. TECHNIQUE: Axial computed tomography images of the abdomen and pelvis with intravenous contrast. CTDI is 26 mGy and DLP is 1367.19 mGy-cm. Automated exposure control was utilized for the study. A dose lowering technique was utilized adhering to the principles of ALARA. CONTRAST: Patient received 93ml optiray 320 of IV contrast COMPARISON: 03/07/2015. FINDINGS: Lung bases: No consolidation. ABDOMEN: Liver: There are 2 rounded lucencies within the left lobe of the liver measuring 0.6 and 1.1 cm in size. Gallbladder and bile ducts: . The patient is status post cholecystectomy.. No ductal dilation. Pancreas: No mass. No ductal dilation. Spleen: No splenomegaly. Adrenals: The left adrenal gland is unremarkable. There is a 1 cm nodule in the right adrenal gland. Kidneys and ureters: No evidence of right renal calculi or hydronephrosis. There are multiple left renal calculi. There is some dilatation of the left renal pelvis. No hydroureter is noted.. Stomach and bowel: There is a small hiatal hernia. The stomach is relatively decompressed. There is air and stool noted in the colon. There are diverticula present on the colon. No significant inflammatory changes are seen. There may be thickening of the wall of the rectum.. PELVIS: Appendix: There is some dilatation of the appendiceal tip with a 6 mm low-density structure (series 2, image 65). No inflammatory changes are seen. Bladder: No calculi are noted within the bladder.. Reproductive: Unremarkable as visualized. ABDOMEN and PELVIS: Intraperitoneal space: No free air. No significant fluid collection. Bones/joints: There is a scoliosis of the spine with degenerative changes.. Soft tissues: Unremarkable. Vasculature: No abdominal aortic aneurysm. Lymph nodes: No enlarged lymph nodes. IMPRESSION: Diverticulosis. There may be thickening of the wall of the rectum. This may be due to under distention. Cannot exclude proctitis. There is a small hiatal hernia. There are multiple left renal calculi. There are some dilatation of the left renal pelvis. No obstructing calculus is noted. This may represent a partial UPJ obstruction. Small rounded lucencies within the liver may represent cysts. A 1 cm nodule in the right adrenal gland may represent an adenoma There is a possible 6 mm mucocele within the appendiceal tip. Electronically signed by: Willam Chapa MD 06/20/24 23:22 PM
[2024-06-25] MEDS: PANTOprazole 40 MG TAB PO SCH (21:00)
[2024-06-26 07:28] LABS: Hematocrit (blood only) 32.2 % (42.0-52.0); Mean Corpuscular Hemoglobin 30.6 pg (25.0-34.0); Mean Corpuscular Hgb Conc 34.2 g/dL (32.0-36.0); Mean Corpuscular Volume 89.7 fL (80.0-100.0); Mean Platelet Volume 13.8 fL (9.4-12.4); Platelet Count 148 K/uL (130-400); RDW Coefficient of Variation 13.2 % (11.5-14.5); RDW Standard Deviation 42.7 fL (36.4-46.3); Red Blood Count 3.59 M/uL (4.70-6.10); White Blood Count 5.69 K/ul (4.8-10.8)
[2024-06-26 08:01] LABS: BUN Creatinine Ratio 8.3 (10-20); Calcium 8.2 mg/dl (8.6-10.3); Creatinine Clr Calc Pharmacy 63.2 ml/min; Potassium 3.2 mmol/L (3.5-5.1)
[2024-06-26] MEDS: POTASSIUM CHLORIDE CRTAB 20 MEQ TABCR PO STA (08:33)
[2024-06-26] MEDS: POTASSIUM CHLORIDE CRTAB 20 MEQ TABCR PO SCH (08:33)
[2024-06-26 10:55] VITALS: PULSE 84; RESP 17; TEMP 97.7; O2SAT 97
--- NOTE | 2024-06-26 11:00 | Discharge Summary ---
Discharge Summary Date of Service June 26, 2024 Principal Dx & Hospital Course #1 = Principal Diagnosis (1) Esophageal ulcer: (2) Acute upper GI bleed: Plan pt is an 84-year-old male with past medical history significant for h yperlipidemia, hypothyroidism, mild intermittent asthma, right bundle branch block, B12 deficiency, GERD, chronic back pain, restless leg syndrome, history of depression, hx of right lower extremity DVT on Eliquis, acute diastolic CHF presenting with 2 days of black stools. Gastrointestinal bleeding Possible Proctitis Melena for 2 days Hemoglobin stable at 15.8 on admission, downtrended to 11 held Eliquis Was on IV ppi GI was consulted, recommended/stated the following: -s/p EGD and colonoscopy on 06/24/24 EGD noting concern for Perez's esophagitis, 2 cm hiatal hernia, normal stomach, normal duodenum colonoscopy noting polyps in the cecum and ascending colon, diverticulosis -GI Noted the following:"EGD with esophageal ulcers...recommend EGD in 6-8 weeks to assess healing...would recommend patient start on protonix 40mg bid at discharge..." "EGD will be arranged in 6 to 8 weeks, surveillance of esophageal ulcer. 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 Plaza on 06/25/2024 and he advised that Eliquis can be resumed. Monitor H&H and transfuse as needed for hemoglobin less than 7 Recent right lower extremity DVT Holding Eliquis for GI bleed Vascular surgery consult for a possible IVC filter. Noted/stated the following: "Pt with DVT and started on eliquis in April 2024. No imaging available to review. Pt hgb has remained stable since admission, no transfusion required, despite possible GI bleeding. Currently no indications to place IVC filter... " Case discussed with fuels engineer Dr. Plaza on 06/25/2024 and he advised that Eliquis can be resumed. Partial UVJ Obstruction CT abd/pelvis was concerning for partial UVJ obstruction Urology was consulted, recommended/stated the following, per Dr Hermilo Yousif: "84-year-old male admitted for a GI bleed due to 2 days of black stools. Labs showed a hemoglobin of 15.8 on admission, creatinine of 1.09. He is currently afebrile with stable vitals. A CT scan of the abdomen pelvis was performed which showed a normal right kidney without hydronephrosis. The left kidney has a fairly significant stone burden in the renal pelvis and collecting systems with what appears to be a transition point that may indicate a UPJ obstruction. 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 Recommended that I see patient in outpatient follow-up to discuss stone treatment versus observation but it sounds like he would like to watch these at this point. 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 PCP followup Chronic diastolic CHF Continue home Lasix Monitor for volume overload Hypothyroidism On Synthroid Depression On Zoloft Notes For Next Care Provider please ensure close follow-up with gastroenterology after discharge Please ensure close follow-up with urology after discharge Followup/continued monitoring of CT abd/pelvis findings Medication Changes From Visit Per GI: Pantoprazole 40 mg twice daily Admission HPI Per Admitting Provider 84-year-old male with past medical history significant for hyperlipidemia, hypothyroidism, mild intermittent asthma, right bundle branch block, B12 deficiency, GERD, chronic back pain, restless leg syndrome, history of depression who recently in April was admitted for acute right lower extremity DVT, acute diastolic CHF and right lower extremity cellulitis and was treated with IV Lasix and IV Rocephin and was discharged on Keflex and Eliquis comes because of 2 days of black stools. Denies any abdominal pain. Denies any fevers. Micturating okay. Denies any chest pain or shortness of breath. No cough. No fevers. No headache. Current resting comfortably and hemodynamically stable. Past medical history. As mentioned above Past surgical history. Cystoscopy. Cystoscopy with insertion of stent. Cystourethroscopy with lithotripsy. Laparoscopic assisted tongue. Left cataracts. Social history. . No smoking. No alcohol. No drug use Family history. Sister has lung cancer. Brother has WA. Sister has WA. Mother had WA. Admission Exam Per Admitting Provider General- Not in distress Head- atraumatic Eyes- PERRL. ENT- oropharynx clear Neck- supple, no JVD. Lungs- clear to auscultation no wheezing or crackles Heart- regular rate and rhythm; no murmur, no gallop. Abdomen- normal bowel sounds, soft, nontender, no distension Extremities- no pretibial edema, no erythema seen Neuro- alert, oriented PERRL,no facial palsy; no dysarthria; moves extremities Discharge Exam General: Alert, oriented. No acute distress Skin: Noted bruise on right anterior james Psych: Appropriate mood and affect HEENT: NC/AT CV: RRR Resp: Breath sounds clear bilaterally, no increased effort of breathing Abdomen:Soft, nontender Extremities:Trace edema in lower extremities bilaterally. Updated Medication List Medication Instructions Recorded Confirmed Type furosemide 40 mg tablet 40 mg PO DAILY 04/29/24 06/20/24 History levothyroxine 50 mcg tablet 50 mcg PO DAILY 04/29/24 06/20/24 History potassium chloride 20 mEq 20 meq PO DAILY 04/29/24 06/20/24 History tablet,extended release(part/cryst) sertraline 50 mg tablet 50 mg PO DAILY 04/29/24 06/20/24 History simvastatin 20 mg tablet 20 mg PO DAILY 04/29/24 06/20/24 History apixaban 5 mg (74 tabs) tablets in 5 mg PO Q12H #74 ea 05/02/24 06/20/24 Rx a dose pack (Eliquis) pantoprazole 40 mg tablet,delayed 40 mg PO BID #60 tabs 06/26/24 Rx release Hospital Stay Data Consultations 06/20/24 23:27 ED Decision to Admit Stat 06/21/24 08:00 Consult Gastroenterology Routine Consult Vascular Surgery Routine 06/21/24 09:00 Consult Urology Routine Procedures Performed Operation Date: 06/24/24 16:30 Actual Procedures p EGD Biopsy Cytology - Dipak Plaza MD s Colonoscopy Polypectomy - Dipak Plaza MD Diagnostic Imagining Performed 06/20/24 19:23 CT abd pelvis IV con only Stat Abdomen/Pelvis CT 06/20/24 19:23 Exam(s): CT ABDOMEN + PELVIS With Contrast IV Amt: 93ml optiray 320 EXAM: CT Abdomen and Pelvis With Intravenous Contrast CLINICAL HISTORY: Reason for exam: LLQ pain. TECHNIQUE: Axial computed tomography images of the abdomen and pelvis with intravenous contrast. CTDI is 26 mGy and DLP is 1367.19 mGy-cm. Automated exposure control was utilized for the study. A dose lowering technique was utilized adhering to the principles of ALARA. CONTRAST: Patient received 93ml optiray 320 of IV contrast COMPARISON: 03/07/2015. FINDINGS: Lung bases: No consolidation. ABDOMEN: Liver: There are 2 rounded lucencies within the left lobe of the liver measuring 0.6 and 1.1 cm in size. Gallbladder and bile ducts: . The patient is status post cholecystectomy.. No ductal dilation. Pancreas: No mass. No ductal dilation. Spleen: No splenomegaly. Adrenals: The left adrenal gland is unremarkable. There is a 1 cm nodule in the right adrenal gland. Kidneys and ureters: No evidence of right renal calculi or hydronephrosis. There are multiple left renal calculi. There is some dilatation of the left renal pelvis. No hydroureter is noted.. Stomach and bowel: There is a small hiatal hernia. The stomach is relatively decompressed. There is air and stool noted in the colon. There are diverticula present on the colon. No significant inflammatory changes are seen. There may be thickening of the wall of the rectum.. PELVIS: Appendix: There is some dilatation of the appendiceal tip with a 6 mm low-density structure (series 2, image 65). No inflammatory changes are seen. Bladder: No calculi are noted within the bladder.. Reproductive: Unremarkable as visualized. ABDOMEN and PELVIS: Intraperitoneal space: No free air. No significant fluid collection. Bones/joints: There is a scoliosis of the spine with degenerative changes.. Soft tissues: Unremarkable. Vasculature: No abdominal aortic aneurysm. Lymph nodes: No enlarged lymph nodes. IMPRESSION: Diverticulosis. There may be thickening of the wall of the rectum. This may be due to under distention. Cannot exclude proctitis. There is a small hiatal hernia. There are multiple left renal calculi. There are some dilatation of the left renal pelvis. No obstructing calculus is noted. This may represent a partial UPJ obstruction. Small rounded lucencies within the liver may represent cysts. A 1 cm nodule in the right adrenal gland may represent an adenoma There is a possible 6 mm mucocele within the appendiceal tip. Electronically signed by: Willam Chapa MD 06/20/24 23:22 PM Discharge Instructions Given to Patient (Per Discharging Provider) Kleber, You were admitted and treated for an acute GI bleed. You had a procedure done with a fuels engineer that noted that you had nonbleeding esophageal ulcers. They recommend discharge with the medication pantoprazole to be taken twice a day. Please take it as prescribed. Per gastroenterology, please continue t aking your Eliquis at home. Please keep close follow-up with your fuels engineer after discharge. You were also noted to have some kidney stones and you were seen by the urologist. They recommend outpatient follow-up. Please keep close follow-up with urology after discharge as recommended. Please keep close follow up with your primary care provider after discharge. Please do not hesitate to come back to the emergency room if your symptoms worsen or return. It was a pleasure taking care of you while you were here. Total Time Total Time Spent Total Time Spent (In Minutes): 60
[2024-06-26 12:32] VITALS: BP 103/63
== END 2024-06-26 13:27 | disposition home or self-care (01) | DRG 378 ==
LOC: ED 18:36 → 2S 06-21 03:09 → SUATTDRO 06-21 03:09 → 2S 06-21 04:25